=== PATIENT | male | born 1960 | race Caucasian/White ===

== ENCOUNTER 2017-05-28 11:24 | Inpatient (IN) | payer OTHER ==
[2017-05-28] MEDS ORDERED: AMIODARONE HCL 150 MG/3 ML VIAL IV ONE (11:31)
--- NOTE | 2017-05-28 11:35 | EDPHY ---
H & P HPI/ROS: CHIEF COMPLAINT: Unresponsiveness. HISTORY OF PRESENT ILLNESS: The patient is a 57 y/o male arriving emergently via EMS unresponsive after he was found down in the bathroom this morning. Time down is unknown as he was found by a friend. He has a history of poorly managed diabetes and EMS found him unresponsive in presumed diabetic coma with a BGL read by multiple glucometers as "error." They administered 50gm D50 x 2 and 2mg IV Narcan en route and he began to has some withdrawal to painful stimuli upon arrival in the ED. EMS reports he was tachycardic at 120, hypotensive 60/40, and his EKG showed ST depression and elevation. REVIEW OF SYSTEMS: Unable to obtain review of systems due to patient's critical condition. Source: Family, EMS - Medical/Surgical History PMH: PMH includes: 1. Hypertension 2. Insulin-dependent diabetes - Social History Additional Social History: Lives in [place]. No further information available. - Physical Exam Exam: General Appearance: Minimally reactive with some withdrawal to painful stimuli. No visible trauma. Heart rate in the 200s. Respiratory rate mid 20s. Eyes: Pupils equal and round, no conjunctival injection, no discharge. Pupils are not pinpoint. Extraocular movements are conjugate. ENT, Mouth: Mucous membranes are very dry, no oropharyngeal erythema or edema. Neck: No visible trauma. Trachea midline. Respiratory: Lungs are clear to auscultation; no wheezes, rales, or rhonchi. Cardiovascular: Rapid rate and rhythm; peripheral pulses present. Gastrointestinal: Abdomen is soft, no apparent tenderness, no masses or organomegaly. No visible trauma. Skin: Warm and dry, no rashes, normal color. Back: No visible trauma. Extremities: No lower extremity edema. No visible trauma. Neurological: Minimally responsive to painful stimuli with some withdrawal. Spontaneous movement of all four extremities. Psychiatric: not able to assess. Constitutional: Initial Vital Signs Heart Rate 228 H 05/28/17 11:25 Respiratory Rate 23 H 05/28/17 11:25 O2 Sat (%) 100 05/28/17 11:25 O2 Delivery Mode Ventilator O2 (L/minute) 15 Allergies/Adverse Reactions: No Known Allergies Allergy (Unverified 05/28/17 22:35) Home Medications: Medication Instructions Recorded Ergocalciferol [Vitamin D2 (*)] 50,000 unit PO .TWICE WEEKLY 05/28/17 HYDROCHLOROTHIAZIDE 25 mg PO DAILY 05/28/17 [HYDROCHLOROTHIAZIDE] Insulin Lispro [HUMALOG] 05/28/17 Levothyroxine Sodium 88 mcg PO DAILY 05/28/17 Niacin [Niacin ER] 05/28/17 Pantoprazole Sodium [Protonix 40mg 40 mg PO DAILY 05/28/17 (*)] SIMVASTATIN [Zocor] 10 mg PO DAILY 05/28/17 Valsartan [Valsartan] 80 mg PO DAILY 05/28/17 Verapamil HCl [Verapamil ER] 05/28/17 Medical Decision Making - Diagnostics EKG Interpretation: 12 lead EKG is interpreted in Trace master View by emergency department physician. Sinus tachycardia Imaging Results: Single-view chest x-ray shows ET tube in good position. No infiltrates. I reviewed the film and the radiology report. CT scan of the brain. I have reviewed the radiology report and the images. There is a suggestion of premature atrophy. There is also suggestion of left supraorbital frontal edema. Imaging: Discussed imaging studies w/ will call order clerk Radiologist, I viewed and interpreted images myself ED Course/Re-evaluation: 1124: Met EMS upon arrival and took report. This is a diabetic 56 y/o male presenting for unresponsiveness and unknown down time. EMS administered D50 and Narcan. Patient has some spontaneous movement of his extremities. Second IV established. Labs including i-STAT, ABG, and EKGs ordered. Additional amp of D50 ordered. 1127: HR is 225 with a wide complex tachycardia, BP 128/56. Pads applied. Femoral pulse present. Patient is breathing spontaneously. Cardiology paged. 1131: 100 J synchronized cardioversion administered for wide complex tachycardia. No change in rhythm. 1131: 200 J synchronized cardioversion administered for wide complex tachycardia. No change in rhythm. 1132: 300J synchronized cardioversion administered for wide complex tachycardia. No change in rhythm. 150mg IV amiodarone ordered. HR is 252, tachypneic 40. 1132: ISTAT indicates BGL of over 700, K 6.1, Hct normal. BP now 80/47 1L IV NS started on pressure bag, HR varies in 220 to 250 range. Given this information , the presentation appears to be that of a metabolic derangement rather than a primary cardiac problem. However, it is difficult to determine the underlying cause of his unresponsiveness at this point. 10 units insulin administered for hyperkalemia and hyperglycemia. The 12 lead EKG was interpreted by myself. Rapid wide complex rhythm,. See hard copy and/or "tracemaster" electronic copy for interpretation. 1137: Procedure: Rapid sequence intubation. Indication for the procedure was respiratory distress, unresponsiveness, tachycardia 250. The patient was preoxygenated with 100% oxygen by face mask. The patient was given the following IV medications: 50mg IV rocuronium and 30mg IV etomidate. The patient was orally endotracheally intubated under direct visualization with a 7.0 ETT. Tracheal intubation was confirmed with misting on the tube; breath sounds were auscultated equally bilaterally; appropriate color change with [place] CO2 detector. Chest X-ray shows ETT in good position. The procedure was performed by myself, Dr. Yu 1140: HR now 110, BP 80/36. 1144: Albuterol neb ordered. 1145: Dr. Doherty, seat joiner at bedside. 1148: Echocardiogram ordered by Dr. Doherty. 1152: Repeat BGL is >625. Propofol drip ordered for sedation given the patient is being mechanically ventilated. Has received a total of 4 amps of D50, 150mg IV Amiodarone, 10 units IV insulin , 50mg IV rocuronium, 30mg IV etomidate, albuterol neb, propofol drip, and 3L IV NS at this time. 1200: Spoke with hospitalist service. Dr. Millard accepts admission. 1205: Preliminary echo looks normal per Dr. Doherty. Please see his report. 1215: ABG is 6.98, CO2 <5, K is 6.3, creatinine 3.6. As more information becomes available this appears to be a metabolic acidosis, likely diabetic ketoacidosis, with severe hyperglycemia, elevated creatinine, and elevated potassium. He is being aggressively fluid resuscitated via 2 peripheral IVs and an insulin drip will be started. 1222: Spoke with hospitalist service. Dr. Millard accepts admission. 1gm IV calcium gluconate administered. Insulin drip will be started. Discussed sodium bicarbonate drip with Dr. Millard. 1226: Spoke with patient's friend and mother now at bedside. His friend found him in the bathroom and thinks he may have fallen out of the shower because his hair was wet and he was undressed. They confirm he does use insulin to manage his BGL and has an insulin pump, which we do not see on exam here. His mother states he was diagnosed 20 years ago and he's had several episodes of low BGL over the past few weeks and his friend thinks he's been passing out recently. His friend says he's had BGLs around 24. They say the patient does not manage his diabetes well. They both say he has never been hospitalized for diabetes. I answered all their questions to the best my ability. They understand that he is critically ill. Head CT ordered, given history of possible trauma. Will continue to monitor BGLs regularly. 1308: BGL is 1356. Critical care time spent by me, Dr. Yu, exclusively with this patient was 60 minutes, exclusive of PA time and exclusive of procedures. The organ system at risk was cardiovascular, respiratory, metabolic. I gave IVF, amiodarone, insulin, calcium, albuterol, cardioverted, emergently intubated, and consulted cardiology to prevent worsening of the patients condition. Differential Diagnosis: I considered a differential diagnosis that includes but is not limited to hypoglycemia/hyperglycemia, infectious process, electrolyte abnormality, head injury and intoxicants. - Data Points Laboratory Results: Laboratory Results 05/28/17 11:31 05/28/17 11:31 Medications Given: Discontinued Medications Amiodarone HCl (Amiodarone Hcl) 150 mg IV EDNOW ONE Stop: 05/28/17 11:32 Last Admin: 05/28/17 12:12 Dose: 150 mg Calcium Gluconate (Calcium Gluconate) 1 gm IVP EDNOW ONE Stop: 05/28/17 12:18 Last Admin: 05/28/17 12:38 Dose: 1 gm Etomidate (Etomidate) 30 mg IVP EDNOW ONE Stop: 05/28/17 11:37 Last Admin: 05/28/17 11:36 Dose: 30 mg Sodium Chloride (Ns) 3,000 mls @ 0 mls/hr IV EDNOW ONE; Wide Open PRN Reason: Protocol Stop: 05/28/17 12:17 Last Admin: 05/28/17 11:25 Dose: 3,000 mls Insulin Human Regular 100 unit (/ Sodium Chloride) 101 mls @ 0 mls/hr IV CONT TISH; Per Protocol PRN Reason: Protocol Stop: 11/24/17 13:29 Last Admin: 05/29/17 01:38 Dose: 101 mls Sodium Bicarbonate 50 meq/ (Sodium Chloride) 1,050 mls @ 150 mls/hr IV CONT TISH Stop: 11/24/17 13:14 Last Admin: 05/28/17 15:07 Dose: 1,050 mls Sodium Bicarbonate 150 meq/ (Dextrose) 1,150 mls @ 125 mls/hr IV CONT TISH Stop: 11/24/17 16:44 Last Admin: 05/28/17 21:43 Dose: 1,150 mls Ertapenem 1 gm/ Sodium (Chloride) 100 mls @ 200 mls/hr IV ONCE ONE PRN Reason: Protocol Stop: 05/28/17 17:08 Last Admin: 05/28/17 17:50 Dose: 100 mls Calcium Gluconate 2 gm/ (Dextrose) 70 mls @ 140 mls/hr IV ONCE ONE Stop: 05/28/17 23:36 Last Admin: 05/28/17 23:40 Dose: 70 mls Sodium Chloride (Ns) 1,000 mls @ 0 mls/hr IV ONCE ONE PRN Reason: Wide Open Stop: 05/28/17 23:08 Last Admin: 05/28/17 23:23 Dose: 1,000 mls Potassium Chloride (Potassium Cl 10 Meq (Premix)) 100 mls @ 100 mls/hr IV Q1H TISH Stop: 05/29/17 03:14 Last Admin: 05/29/17 03:23 Dose: 100 mls Sodium Chloride (Ns) 3,000 mls @ 500 mls/hr 30 ml/kg infuse over 6 hr (3000 ml ) IV ONCE ONE Stop: 05/29/17 05:16 Last Admin: 05/29/17 00:11 Dose: 3,000 mls Dextrose/Sodium Chloride (D5w Ns) 1,000 mls @ 100 mls/hr IV CONT TISH Stop: 11/25/17 05:59 Last Admin: 05/29/17 06:05 Dose: 1,000 mls Potassium Chloride (Potassium Cl 10 Meq (Premix)) 100 mls @ 100 mls/hr IV ONCE ONE Stop: 05/29/17 06:59 Last Admin: 05/29/17 06:04 Dose: 100 mls Sodium Chloride (1/2 Ns) 1,000 mls @ 100 mls/hr IV CONT TISH Stop: 11/25/17 08:29 Last Admin: 05/29/17 07:30 Dose: 1,000 mls Potassium Chloride (Potassium Cl 20 Meq (Premix)) 50 mls @ 50 mls/hr IV Q1H TISH Stop: 05/29/17 11:37 Last Admin: 05/29/17 10:27 Dose: 50 mls Insulin Glargine (Lantus Syringe) 10 units SC ONCE ONE Stop: 05/29/17 06:23 Last Admin: 05/29/17 07:47 Dose: 10 units Insulin Human Regular (Humulin R) 10 unit IVP EDNOW ONE Stop: 05/28/17 11:37 Last Admin: 05/28/17 11:36 Dose: 10 units Insulin Human Regular (Humulin R) 5 unit IV ONCE ONE Stop: 05/28/17 18:01 Last Admin: 05/28/17 18:00 Dose: 5 units Insulin Human Regular (Humulin R) 10 unit IVP ONCE ONE Stop: 05/28/17 23:46 Last Admin: 05/28/17 23:47 Dose: 10 units Insulin Human Regular (Humulin R) 10 unit IVP ONCE ONE Stop: 05/29/17 01:16 Last Admin: 05/29/17 01:10 Dose: 10 units Insulin Human Regular (Humulin R) 10 unit IVP ONCE ONE Stop: 05/29/17 03:31 Last Admin: 05/29/17 03:23 Dose: 10 units Pneumococcal Polyvalent Vaccine (Pneumovax 23) 0.5 ml IM .ONCE ONE Stop: 05/29/17 11:08 Last Admin: 05/29/17 11:29 Dose: 0.5 ml Rocuronium [place] (Zemuron) 50 mg IVP EDNOW ONE Stop: 05/28/17 11:37 Last Admin: 05/28/17 11:36 Dose: 50 mg Sodium Bicarbonate (Sodium Bicarbonate) 50 meq IV ONCE ONE Stop: 05/28/17 14:31 Last Admin: 05/28/17 14:30 Dose: 50 meq Sodium Bicarbonate (Sodium Bicarbonate) 50 meq IV ONCE ONE Stop: 05/28/17 16:31 Last Admin: 05/28/17 16:30 Dose: 50 meq Sodium Polystyrene Sulfonate (Kayexalate) 30 gm WA ONCE ONE Stop: 05/28/17 13:17 Last Admin: 05/28/17 15:07 Dose: Not Given Departure - Departure Disposition: [facility] Inpatient Acute Clinical Impression: Hyperglycemia, Unresponsive, Hyperkalemia, tachycardia rate 200-250, Acidosis Diabetic ketoacidosis Qualifiers: Diabetes mellitus type: type 1 Diabetes mellitus complication detail: with coma Qualified Code(s): E10.11 - Type 1 diabetes mellitus with ketoacidosis with coma Condition: Critical Report Scribed for: Jes Yu Report Scribed by: Leesa Alegre Date of Report: 05/28/17 Time of Report: 11:35 Physician Review and Approval Statement: 05/29/17 12:04 Portions of this note were transcribed by the medical laboratory technical officer. I, Dr. Jes Yu, personally performed the history, physical exam, and medical decision- making; and confirmed the accuracy of the information in the transcribed note.
[2017-05-28] MEDS ORDERED: ETOMIDATE 20 MG/10 ML VIAL IVP ONE (11:36)
[2017-05-28] MEDS ORDERED: INSULIN REGULAR HUMAN 100 UNIT/ML IVP ONE ×2 (11:36→23:45)
[2017-05-28] MEDS ORDERED: INSULIN REGULAR HUMAN 100 UNIT/ML ONE (11:36)
[2017-05-28] MEDS ORDERED: ROCURONIUM 100 MG/10 ML VIAL IVP ONE (11:36)
[2017-05-28] MEDS ORDERED: ALBUTEROL 3 ML DEYVIAL ONE (11:36)
[2017-05-28 11:38] LABS: % IMMATURE GRANULYOCYTES 1.7 % (0.0-1.1); ABSOLUTE IMMATURE GRANULOCYTES 0.26 10^3/uL (0.00-0.10); ABSOLUTE NRBC COUNT 0.02 10^3/uL (0-0.01); ADD DIFF? NO; ADD MORPH? NO; ADD SCAN? NO; ATYPICAL LYMPHOCYTE FLAG 0 (0-99); FRAGMENT RBC FLAG 0 (0-99); HEMOGLOBIN 12.7 g/dL (13.7-17.5); LEFT SHIFT FLG 30 (0-99); LIPEMIA HEMOLYSIS FLAG 70 (0-99); MEAN CELL HEMOGLOBIN 33.5 pg (27.9-34.1); MEAN CELL HEMOGLOBIN CONCENTR. 29.5 g/dL (32.4-36.7); MEAN CELL VOLUME 113.5 fL (81.5-99.8); MEAN PLATELET VOLUME 11.4 fL (8.7-11.7); NRBC-AUTO% 0.1 % (0.0-0.2); PLATELET CLUMPS FLAG 10 (0-99); PLATELET COUNT 224 10^3/uL (150-400); RED BLOOD CELL COUNT 3.79 10^6/uL (4.40-6.38); RED CELL DISTRIBUTION WIDTH 14.3 % (11.5-15.2)
[2017-05-28 11:47] LABS: INR 1.53 (0.83-1.16); PROTIME(PATIENT) 18.4 SEC (12.0-15.0)
[2017-05-28 11:48] LABS: APTT 24.1 SEC (23.0-38.0)
[2017-05-28 11:49] LABS: ALANINE AMINOTRANSFERASE 42 IU/L (21-72); ALBUMIN 3.6 g/dL (3.5-5.0); ALKALINE PHOSPHATASE 82 IU/L (38-126); ASPARTATE AMINOTRANSFERASE 61 IU/L (17-59); BILIRUBIN,TOTAL 0.9 mg/dL (0.1-1.4); BILIRUBIN-CONJUGATED 0.8 mg/dL (0.0-0.5); BILIRUBIN-UNCONJUGATED 0.1 mg/dL (0.0-1.1); CHLORIDE 92 mEq/L (97-110); CREATININE 3.6 mg/dL (0.7-1.3); GLOMERULAR FILTRATION RATE 18; SODIUM 130 mEq/L (134-144); TOTAL PROTEIN 5.3 g/dL (6.3-8.2)
[2017-05-28 11:51] LABS: POTASSIUM 6.3 mEq/L (3.5-5.2)
[2017-05-28 11:52] LABS: CARBON DIOXIDE < 5 mEq/l (22-31)
[2017-05-28] MEDS ORDERED: PROPOFOL/EMULSION 1,000 MG/100 ML BOTTLE IV ONE (11:55)
[2017-05-28 12:00] LABS: TROPONIN I 0.301 ng/mL (0-0.034)
[2017-05-28 12:08] LABS: BASE EXCESS -25.1 mEq/L (-2.5-2.5); BICARBONATE 6 mEq/L (22-26); MEASURED OXYGEN SATURATION 99 % (92-95); PCO2 27 mmHg (34-38); PO2 376 mmHg (65-75)
[2017-05-28 12:14] LABS: ASSIST CONTROL YES
[2017-05-28 12:15] LABS: O2 CONCENTRATIION 100 % (0-100); P/F RATIO 376 RATIO; TOTAL RATE 14
[2017-05-28] MEDS ORDERED: NS 3,000 ML IV ONE ×2 (12:16→23:17)
[2017-05-28] MEDS ORDERED: CALCIUM GLUC 10% 1 GM/10 ML VIAL IVP ONE (12:17)
[2017-05-28 12:21] LABS: TCO2 7 mEq/L (23-27)
--- NOTE | 2017-05-28 12:35 | ECHO ---
[id number] + + [address] : : [facility] [address] : : [phone] + Adult Echocardiographic Report + -----+ :Name: ABENA ALEMAN Abimaeludy Date: 05/28/2017 12:07 PM : : Hospital Admission Number: [id number] Locjerio n: ER: :: 1960 Gender: Male : :Age: 56 yrs Race: WH : :Reason For Study: Eval LV Fx : :History: Found down, Post Defibrillator shock x 3 : + -----+ Doppler Measurements \T\ Calculations TR max mundo: 278.0 cm/sec TR max P.9 mmHg RAP systole: 10.0 mmHg RVSP(TR): 40.9 mmHg Left Ventricle The left ventricular ejection fraction is normal. The left ventricle is hyperdynamic. The left ventricular wall motion is normal. Right Ventricle The right ventricle is mildly dilated. Mitral Valve The mitral valve is normal in structure and function. There is no evidence of mitral valve prolapse. There is no mitral regurgitation noted. Tricuspid Valve There is mild tricuspid regurgitation. Right ventricular systolic pressure is 34mmHg. RAP 3 mmHg. Aortic Valve The aortic valve opens well. There is no aortic insufficiency. Great Vessels The aortic root is normal size. Pericardium/Pleural There is no pericardial effusion. Conclusion This is a limited echo to evaluate LV function and EF. The left ventricular ejection fraction is normal. The left ventricle is hyperdynamic. The mitral valve is normal in structure and function. There is mild tricuspid regurgitation. The aortic valve opens well. The aortic root is normal size. There is no pericardial effusion. The left ventricular wall motion is normal. Right ventricular systolic pressure is 34mmHg. Final Reading Physician: Inder Doherty electronically signed on 05/28/2017 12:34 PM Ordering Physician: Inder Doherty Performed By: Byron Marquez, CS
[2017-05-28] MEDS ORDERED: LORazepam 2 MG/ML INJ IVP PRN ×2 (13:07→17:54)
[2017-05-28] MEDS ORDERED: ACETAMINOPHEN 650 MG SUPP PR PRN (13:07)
[2017-05-28 13:08] LABS: GLUCOSE 1356 mg/dL (70-100)
[2017-05-28] MEDS ORDERED: NS 1,000 ML IV SCH (13:15)
[2017-05-28] MEDS ORDERED: SODIUM BICARBONATE 50 MEQ in 1/2 NS 1,000 ML IV SCH (13:15)
[2017-05-28] MEDS ORDERED: SODIUM POLY SULF 15 GM/60 ML BOTTLE PR ONE (13:16)
--- NOTE | 2017-05-28 13:40 | GCON ---
[f rep st] CONSULTATION CARDIOLOGY CONSULTATION DATE OF CONSULTATION: 05/28/2017 REASON FOR CONSULTATION: Wide-complex tachycardia in 56 year-old gentleman found unresponsive at home for unknown period of time. HISTORY OF PRESENT ILLNESS: Of note, this history of present illness is obtained from Dr. Yu exclusively. The patient is a 56 year-old gentleman who was found down and unresponsive at home in his bathroom. He was down for an unknown period of time. He does have a known history of diabetes and is on insulin. Per Dr. Yu's report, who spoke with his mother who states he does have a history of diabetes which is poorly controlled. EMS was contacted, and upon arrival he was found to be unresponsive. Attempts to get fingerstick blood glucose were unsuccessful secondary to glucometer reading "error." He subsequently was administered 50 g of D50. He was also given 2 mg of IV Narcan and was minimally responsive to painful stimuli. He was tachycardic, in a sinus tachycardia on EMS telemetry strips with a wide-complex tachycardia. He was also hypotensive with a blood pressure of 60/40. Upon arrival in the ER at 11:27, the heart rate is reported to be 225 with a blood pressure of 128/56. He received 3 synchronized shocks; initially at 100 followed by 200 and 300 joules and received 150 mg bolus of amiodarone. Upon my arrival, he was in sinus tachycardia on monitor and storage bin tender in the 130s with a wide-complex tachycardia, consistent with hyperkalemia. Initial potassium was 6.3. Blood glucose was markedly elevated in the 700s. Creatinine was elevated at 3.6. Upon my arrival, he was hemodynamically stable with systolic blood pressure of 96. Stat limited echo at bedside per my review demonstrated hyperdynamic left ventricular function with LVEF of 70%. No wall motion abnormalities. No significant valvular disease. There is no evidence of pericardial effusion. Right ventricular size was borderline mildly dilated with normal right ventricular function. Right ventricular systolic pressure approximately 34 mmHg. IVC approximately 1.5 cm, consistent with right atrial pressure of 3 mmHg. Cardiac exam demonstrated normal rhythm with S1 and S2 without murmurs, rubs, or gallops. There is no evidence of cyanosis, clubbing or edema. PAST MEDICAL HISTORY: 1. History of diabetes. 2. Hypertension. MEDICATIONS ON ADMISSION: Unknown exact doses but apparently uses insulin. ALLERGIES: Unknown. SOCIAL HISTORY: Unknown. FAMILY HISTORY: Unknown. PHYSICAL EXAM: GENERAL: Patient is unresponsive to stimuli. VITAL SIGNS: Blood pressure is 108/52, heart rate of 111, sinus tachycardia, oxygen saturation 99% on ventilator. NECK: There is no evidence of JVP or carotid bruits. LUNGS: Clear to auscultation anteriorly. CARDIAC: S1, S2. Regular. No murmurs, rubs, or gallops. PMI is not displaced. ABDOMEN: Soft with normal bowel sounds. No pulsatile mass. EXTREMITIES: No evidence of cyanosis , clubbing or edema. DATA: Lab work demonstrates white blood cell count of 15.3, hemoglobin 12.7, hematocrit of 43, platelets of 224. INR 1.53. Blood gas demonstrates pCO2 of 27, PO2 of 376, pH of 6.98. Basic metabolic panel demonstrates sodium of 127, potassium of 6.3, chloride of 92, bicarb less than 5, BUN 52, creatinine 3.8. Fingerstick glucose of approximately 700. Calcium 8, magnesium 2.7, AST 61, ALT 42, alkaline phosphatase 82. Troponin 0.301. Total protein 5.3, albumin 3.6. Chest x-ray: No acute cardiopulmonary process. EKG demonstrates wide-complex tachycardia of sinus rhythm with wide QRS in the setting of hyperkalemia. IMPRESSION: 1. Patient found unresponsive in the setting of marked hyperglycemia with sugars in the 700s, hyperkalemia with potassium of 6.3, and acute renal insufficiency with creatinine of 3.8. 2. Wide-complex tachycardia consistent with sinus tachycardia in the setting of hyperkalemia. The patient is a 56-year-old gentleman who was found unresponsive at home with marked hyperglycemia, hyperkalemia and acute renal failure and sinus tachycardia with wide-complex rhythm induced by hyperkalemia. Echocardiogram demonstrates normal left ventricular function with no evidence of wall motion abnormality. Right ventricular function is normal. Pulmonary pressure approximately 34 mmHg. Right atrial pressure 3 mmHg. No evidence of pericardial effusion. I do not think this is a primary cardiac etiology to his current state. PLAN: 1. Patient will be admitted to ICU. 2. Continue to work toward rectifying hyperkalemia, renal insufficiency and hyperglycemia. 3. Will continue to follow along with his care. 4. No indication for emergent left heart catheterization at this time. 45 minutes spent coordinating critical care. /[id number]/MODL MTDD
[2017-05-28] MEDS ORDERED: ETOMIDATE 40 MG/20 ML INJ ONE (13:44)
[2017-05-28] MEDS ORDERED: ROCURONIUM 100 MG/10 ML VIAL ONE (13:45)
[2017-05-28 14:03] LABS: ANION GAP 26 mEq/L (8-16); CARBON DIOXIDE 8 mEq/l (22-31); CHLORIDE 103 mEq/L (97-110); CREATININE 3.6 mg/dL (0.7-1.3); GLOMERULAR FILTRATION RATE 18; POTASSIUM 4.9 mEq/L (3.5-5.2); SODIUM 137 mEq/L (134-144)
--- NOTE | 2017-05-28 14:08 | CPEKG ---
Heart Rate: 110 RR Interval: 545 P-R Interval: 132 QRSD Interval: 176 QT Interval: 448 QTC Interval: 607 P [place]: 0 QRS [place]: -73 T Wave [place]: 49 EKG Severity - ABNORMAL ECG - EKG Impression: SINUS TACHYCARDIA EKG Impression: RIGHT BUNDLE BRANCH BLOCK Electronically Signed By: Rishi Jeter 31-May-2017 11:56:23
--- NOTE | 2017-05-28 14:09 | CPEKG ---
Heart Rate: 114 RR Interval: 526 P-R Interval: 123 QRSD Interval: 176 QT Interval: 396 QTC Interval: 546 P [place]: 244 QRS [place]: -82 T Wave [place]: 67 EKG Severity - ABNORMAL ECG - EKG Impression: ECTOPIC ATRIAL TACHYCARDIA EKG Impression: RIGHT BUNDLE BRANCH BLOCK Electronically Signed By: Rishi Jeter 31-May-2017 11:56:10
[2017-05-28 14:19] LABS: GLUCOSE 1231 mg/dL (70-100)
[2017-05-28 14:21] LABS: COLOR YELLOW; LEUKOCYTE ESTERASE,URINE NEGATIVE (NEGATIVE); NITRITE,URINE NEGATIVE (NEGATIVE)
[2017-05-28 14:30] LABS: MUCUS TRACE /lpf (NONE-1+)
[2017-05-28] MEDS: fentaNYL/NACL 100 ML IV SCH (14:30)
[2017-05-28] MEDS ORDERED: SODIUM BICARBONATE 50 MEQ/50 ML SYR IV ONE (14:30)
[2017-05-28] MEDS ORDERED: fentanYL/NACL/100 ML BAG IV ONE (14:33)
[2017-05-28] MEDS ORDERED: NA BICARBONATE 50 MEQ/50 ML VIAL ONE (14:33)
[2017-05-28] MEDS: INSULIN REGULAR HUMAN 100 UNIT in NS 100 ML IV SCH ×2 (14:59→21:42)
[2017-05-28] MEDS: PANTOPRAZOLE SODIUM 40 MG in NS 100 ML IV SCH (15:00)
[2017-05-28] MEDS ORDERED: ALTEPLASE 2 MG VIAL IVP PRN (15:06)
[2017-05-28] MEDS: PROPOFOL/EMULSION 100 ML IV SCH ×3 (15:06→23:39)
[2017-05-28 15:35] LABS: BASE EXCESS -16.2 mEq/L (-2.5-2.5); BICARBONATE 11 mEq/L (22-26); MEASURED OXYGEN SATURATION 99 % (92-95); PCO2 32 mmHg (34-38); PO2 209 mmHg (65-75); TCO2 12 mEq/L (23-27)
[2017-05-28 15:37] LABS: END TIDAL CO2 28
[2017-05-28 15:38] LABS: TOTAL RATE 20
[2017-05-28] MEDS ORDERED: SODIUM BICARBONATE 50 MEQ/50 ML SYR ONE (16:19)
[2017-05-28] MEDS ORDERED: D50W 25 GM/50 ML SYR IVP PRN (16:28)
[2017-05-28] MEDS ORDERED: NA BICARBONATE 50 MEQ/50 ML VIAL IV ONE (16:30)
[2017-05-28 16:38] LABS: B-HYDROXYBUTYRATE 5.98 mmol/L (0.02-0.27)
[2017-05-28] MEDS ORDERED: ERTAPENEM 1 GM in NS 100 ML IV ONE (16:39)
[2017-05-28] MEDS ORDERED: SODIUM BICARBONATE 150 MEQ in D5W 1,000 ML IV SCH (16:45)
[2017-05-28 16:57] LABS: GLUCOSE 1127 mg/dL (70-100)
--- NOTE | 2017-05-28 17:10 | GHP ---
[f rep st] HISTORY AND PHYSICAL DATE OF ADMISSION: 05/28/2017 CHIEF COMPLAINT: Found down. HISTORY: This is a 56-year-old man who was found down at home this morning by a realtor. The patie nt has a known history of diabetes and per family present at bedside he has been having issues with control of his diabetes both with highs and lows. When EMS found him they checked his fingerstick g lucose and it was read as error. Given concerns for hypoglycemia, he was given 3 rounds of D50; 2 e n route in the ambulance and 1 on arrival in the ER. He was noted to have a wide-complex tachycardi a that was prolonged and he did receive 3 shocks while in the emergency department without any fermin e in his rhythm. He was fluid resuscitated and treated urgently for hyperkalemia at which time his blood pressure improved and his heart rate came down somewhat. He was intubated emergently in the e mergency department. An ABG was obtained, notable for a pH of 6.98 and a bicarb of 6. Cardiology w as emergently consulted and performed echocardiogram which was relatively unremarkable. They did no t feel that his tachycardia was likely VT. He was started on DKA protocol and moved to the ICU. PAST MEDICAL HISTORY: 1. Includes insulin-dependent diabetes, unknown if type 1 or type 2. 2. Hypothyroid. 3. Hypertension. 4. Gastroesophageal reflux disease. PAST SURGICAL HISTORY: This is not obtainable per chart review and unobtainable by the patient. FAMILY HISTORY: This too was unobtainable per chart review, and given the patient is unresponsive t his was not obtained. SOCIAL HISTORY: Presumably patient lives alone but otherwise social history is unobtainable. REVIEW OF SYSTEMS: Unobtainable secondary to patient's mental status. HOME MEDICATIONS: 1. Vitamin D2. 2. Simvastatin. 3. Levothyroxine. 4. Losartan. 5. Hydrochlorothiazide. 6. Pantoprazole. 7. Verapamil. 8. Niacin. 9. Insulin lispro. ALLERGIES: This was unassessable and not available per chart review. PHYSICAL EXAM: VITAL SIGNS: BP 97/78, heart rate 108, respiratory rate 20, O2 saturation 100% on 6 0% FiO2 on the ventilator, temperature is 36.7. GENERAL APPEARANCE: Well-developed/well-nourished man. He is intubated and sedated and nonresponsive. EYES: Anicteric. Pupils equal, round, and re active. HEENT: ET tube in place, mucous membranes appear dry. CARDIOVASCULAR: Tachy, regular, no MRG. PULMONARY: CTA bilaterally to anterior exam. ABDOMEN: Obese, soft, no palpable masses, bow el sounds are decreased but present. EXTREMITIES: Trace bilateral lower extremity edema. SKIN: W arm and dry, well perfused. NEURO/PSYCH: Patient is intubated and sedated and therefore is unable to be assessed. CLINICAL DATA: Labs reviewed. Significant for white blood cell count of 15.3, hematocrit of 43, pl atelets of 224. INR is 1.5. Gas on arrival notable for pH of 6.98, pCO2 of 7. This is improved to 7.1 and 12. Chemistry initially showing sodium of 130, potassium 6.3. Bicarb less than 5. BUN of 52 and creatinine 3.6 with a glucose of 1356. LFTs are relatively unremarkable. Troponin is 0.3. Urinalysis shows 3+ glucose and 3+ blood, but otherwise unremarkable. U tox is negative. Head CT concerning for possible alcohol abuse with premature cerebral atrophy but otherwise unremark able. Chest x-ray: Personally reviewed and interpreted, shows no focal infiltrates. ET tube in good posi tion. EKG personally reviewed and interpreted. Shows sinus tachycardia with right bundle branch block. N o old to compare. ASSESSMENT/PLAN: A -umok-nrb, diabetic man found unresponsive with evidence of diabetic k etoacidosis and acute kidney injury, as well as sinus tachycardia. 1. Diabetic ketoacidosis. Unclear if this was the main precipitating event or some other factors c ontributing. His sugars are in the 1000 at this point, with a gap in the 20s. He is started on DKA protocol with aggressive fluid resuscitation and electrolyte repletion. He will be monitored in th e ICU on insulin drip. 2. Acute encephalopathy. Again, patient was found unresponsive and remained unresponsive though wi th a pulse at the time of arrival in the ER. This in the setting of significant metabolic derangeme nts as above. Also, with significant tachycardia possibly leading to poor cerebral perfusion. Head CT was essentially unremarkable. Unclear if he does have a history of alcohol use as brought up by the radiologist. He does have a very high MCV as well. 3. Acute kidney injury in the setting of diabetic ketoacidosis as above. He is making urine. Cont inue IV fluids and re-evaluate over the next 24 hours. No indication at this time for hemodialysis or renal consultation. 4. Elevated troponin. Again, echocardiogram does not show any signs of clear active ischemia. He is not suggestive of PE either. This could all be related to demand in the setting of significant h ypotension and DKA but will continue to trend troponins. Cardiology is following. 5. Acute hypoxic respiratory failure. Patient is now intubated. Chest x-ray is relatively unremar kable. Pulmonary embolism is a possibility though D-dimer is relatively low given age adjusted cut off. No evidence of pneumonia. This could be largely driven by the patient's encephalopathy and di fficulty to maintain his airway. Pulmonology will be involved. 6. Leukocytosis in the setting of above and significant stress. There is no clear evidence at this point of an acute infectious process. Low threshold to start empiric antibiotics, so at this point , do not have a source for treatment. 7. Inpatient status. Patient is critically ill requiring ICU care. Patient is new to my care. Old records reviewed, summarized as per HPI and past medical history. C are plan reviewed with ER physician, as well as Cardiology. Further history obtained from the ER st aff and patient's friend present at bedside. Greater than 60 minutes of critical care time spent with this patient in evaluation of labs, coordin ating with specialists and evaluating imaging studies. /[id number]/MODL
[2017-05-28] MEDS: ALBUTEROL 200 PUFFS/18 GM MDI IH SCH ×3 (17:28→23:55)
[2017-05-28] MEDS ORDERED: PROPOFOL/EMULSION 100 ML IV SCH (17:54)
[2017-05-28] MEDS ORDERED: fentaNYL 100 MCG/2 ML INJ IVP PRN (17:54)
[2017-05-28] MEDS ORDERED: MIDAZOLAM 2 MG/2 ML VIAL IVP PRN (17:54)
[2017-05-28] MEDS ORDERED: ALBUTEROL 200 PUFFS/18 GM MDI IH SCH (18:00)
[2017-05-28] MEDS ORDERED: INSULIN REGULAR HUMAN 100 UNIT/ML IV ONE (18:00)
[2017-05-28 18:30] LABS: GLUCOSE 936 mg/dL (70-100)
[2017-05-28 21:26] LABS: ANION GAP 9 mEq/L (8-16); CALCIUM 6.2 mg/dL (8.5-10.4); CARBON DIOXIDE 26 mEq/l (22-31); CHLORIDE 101 mEq/L (97-110); CREATININE 2.4 mg/dL (0.7-1.3); GLOMERULAR FILTRATION RATE 28; SODIUM 136 mEq/L (134-144)
[2017-05-28] MEDS: CHLORHEXIDINE GLUCONATE 15 ML UDL PO SCH (21:42)
[2017-05-28 21:58] LABS: GLUCOSE 562 mg/dL (70-100); POTASSIUM 2.2 mEq/L (3.5-5.2)
[2017-05-28 23:01] LABS: MIXED VENOUS O2 SATURATION 78 % (65-75)
[2017-05-28 23:03] LABS: % IMMATURE GRANULYOCYTES 0.5 % (0.0-1.1); ABSOLUTE IMMATURE GRANULOCYTES 0.06 10^3/uL (0.00-0.10); ADD DIFF? NO; ADD MORPH? NO; ADD SCAN? NO; ATYPICAL LYMPHOCYTE FLAG 0 (0-99); FRAGMENT RBC FLAG 0 (0-99); HEMOGLOBIN 12.8 g/dL (13.7-17.5); LEFT SHIFT FLG 10 (0-99); LIPEMIA HEMOLYSIS FLAG 90 (0-99); MEAN CELL HEMOGLOBIN 33.2 pg (27.9-34.1); MEAN CELL HEMOGLOBIN CONCENTR. 35.6 g/dL (32.4-36.7); MEAN CELL VOLUME 93.5 fL (81.5-99.8); MEAN PLATELET VOLUME 10.8 fL (8.7-11.7); PLATELET CLUMPS FLAG 40 (0-99); PLATELET COUNT 179 10^3/uL (150-400); RED BLOOD CELL COUNT 3.85 10^6/uL (4.40-6.38); RED CELL DISTRIBUTION WIDTH 12.8 % (11.5-15.2)
[2017-05-28 23:05] LABS: BASE EXCESS -1.6 mEq/L (-2.5-2.5); BICARBONATE 21 mEq/L (22-26); MEASURED OXYGEN SATURATION 99 % (92-95); PCO2 33 mmHg (34-38); PO2 148 mmHg (65-75); TCO2 22 mEq/L (23-27)
[2017-05-28 23:06] LABS: ASSIST CONTROL YES; END TIDAL CO2 27; O2 CONCENTRATIION 40 % (0-100); P/F RATIO 370 RATIO; TOTAL RATE 20
[2017-05-28] MEDS ORDERED: CALCIUM GLUCONATE 2 GM in D5W 50 ML IV ONE (23:07)
[2017-05-28] MEDS ORDERED: NS 1,000 ML IV ONE (23:07)
--- NOTE | 2017-05-28 23:17 | HOSPPROG ---
Hospitalist Progress Note Assessment/Plan: 30 minutes additional critical care, spent at bedside with patient, coordinating his care and addressing the issues as follows: - patient's hypotension is worsening with mean arterial pressures in the 50 range and a CVP between 2 and 6 - arterial lactic acid 2.5, procalcitonin 132, suspect possible septic shock as initial event causing hyperglycemia then acute kidney injury then hyperkalemia then ventricular arrhythmia - echocardiogram from earlier today reviewed, hyperdynamic left ventricle - give 1 L normal saline bolus now, initiate Levophed if map remains less than 65 - initiate septic shock protocol and repeat serial lactic acid levels until clears - continue patient on insulin drip per DKA protocol and bolus and increase drip as necessary - continue patient on sodium bicarbonate at 125 cc an hour given his severe metabolic acidosis - remainder of patient's arterial blood gas appears like he is oxygenating and ventilating well with normalization of his pH on sodium bicarb drip - replete electrolytes which have been affected by DKA management, notably calcium and potassium, monitor q.4 hours labs and check phosphorus on next one - repeat procalcitonin level and if increasing, broaden antibiotics - as yet, patient's potential source of infection is unclear, nurses send blood cultures, patient with some mild tenderness in his abdomen on palpation, will get noncontrast abdominal CT once his situation above has stabilized - breath sounds clear bilaterally albeit shallow, personally interpreted the patient's most recent chest x-ray, does not have any focal infiltrates to suggest pneumonia - continue on ertapenem - patient remains critically ill with high risk of worsening morbidity and mortality Objective: Vital Signs Temp Pulse Resp BP Pulse Ox 36.4 C 96 19 79/49 L 100 05/28/17 21:00 05/28/17 22:00 05/28/17 22:00 05/28/17 22:00 05/28/17 22:00 Laboratory Results 05/28/17 22:50 05/27/17 05/28/17 05/29/17 05:59 05:59 05:59 Intake Total 5298 Output Total 1375 Balance 3923 PT 18.4 SEC (12.0-15.0) H 05/28/17 11:31 INR 1.53 (0.83-1.16) H 05/28/17 11:31 ICD10 Worksheet Patient Problems: Problems Problem Status Onset Hyperglycemia Acute Unresponsive Acute Hyperkalemia Acute Acidosis Acute
[2017-05-28 23:19] LABS: GLUCOSE 587 mg/dL (70-100)
[2017-05-28 23:27] LABS: TROPONIN I 0.684 ng/mL (0-0.034)
[2017-05-28] MEDS ORDERED: NOREPINEPHRINE BITARTRATE 4 MG in D5W 500 ML IV SCH (23:30)
[2017-05-28] MEDS ORDERED: NOREPINEPHRINE/NS 500 ML IV SCH (23:30)
[2017-05-28] MEDS: POTASSIUM Cl (KCl) 100 ML IV SCH (23:40)
[2017-05-29 00:24] LABS: PROCALCITONIN 147.81 ng/mL (0.02-0.10)
--- NOTE | 2017-05-29 01:02 | GCON ---
[f rep st] CONSULTATION PULMONARY CRITICAL CARE CONSULTATION DATE OF CONSULTATION: 05/28/2017 REASON FOR CONSULTATION: Out of hospital arrest, acute respiratory failure, underlying insulin-dependent diabetes with DKA. HISTORY: The patient is a 56-year-old with underlying insulin-dependent diabetes, apparently poorly controlled. He was found in his bathroom today by his realtor, unresponsive. He was breathing and reportedly did have a pulse. The paramedics were called. They were unable to get any reading by glucometer, and he was thus given 2 amps of D50. He was also given Narcan. Apparently, en route, he was minimally responsive to painful stimuli and appeared to be in a sinus tachycardia. He was initially hypotensive, and in the emergency department, his blood pressure normalized, and he subsequently became hypertensive. He was found to be in a wide-complex tachycardia. He was cardioverted 3 times. He was intubated. A stat cardiac echo appeared normal. There was no significant right ventricular dysfunction or dilatation or high right-sided pressures suggesting pulmonary embolic disease. He was admitted to the intensive care unit with sinus rhythm in the low 100s and a systolic blood pressure of approximately 90. He remains unresponsive but does move his head, torso, and upper extremities, somewhat more to stimulation. He does not follow commands. Glucoses remain high. He has been started on the DKA protocol. He remains acidotic. PAST MEDICAL HISTORY: Obtained from the chart. There is a history of insulin- dependent diabetes, hypertension, gastroesophageal reflux disease, hyperlipidemia, and hypothyroidism on replacement. Listed medications at home include simvastatin, levothyroxine, valsartan, hydrochlorothiazide, pantoprazole, verapamil, niacin, insulin, and vitamin D2. SOCIAL HISTORY: The patient is single. His sister and mother are at the hospital with him. Tobacco and alcohol are denied by his mother. 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 FAMILY HISTORY: Noncontributory. REVIEW OF SYSTEMS: Unobtainable. PHYSICAL EXAMINATION: GENERAL: Reveals a critically ill gentleman who is intubated, on the ventilator and unresponsive. He is being sedated with propofol and some fentanyl. He did receive rocuronium and etomidate several hours ago when he was intubated. VITAL SIGNS: Blood pressure is 100/75, heart rate 104 with sinus rhythm on the monitor, respiratory rate is 20. He is on 60 % FiO2 with saturations in the upper 90s. He is afebrile. HEENT: Remarkable for an oral endotracheal tube being in place. An orogastric tube is present, draining some dark bilious material. Pupils appear equal. He has an upward gaze, slightly to the left. CHEST: Clear bilaterally. Breath sounds are diminished at the bases. There are no significant secretions currently. HEART : Regular. The rhythm is sinus. There is a systolic murmur, no obvious gallop. P2 does not appear to be increased. ABDOMEN: Soft. Tenderness cannot be well assessed. There is no organomegaly. Bowel sounds are present but somewhat diminished. EXTREMITIES: The lower extremities are unremarkable for edema or obvious cords. SKIN: Without rash or significant lesions. There are no obvious signs of trauma. A Martinez catheter is in place. He is making urine. He does move his head and torso and upper extremities somewhat. He has less movement of the lower extremities currently. He will not open his eyes or respond to commands. DATABASE: CT scan of the head shows some cerebral atrophy. There may be a small area of frontal lobe edema above the left orbit? There are no other acute findings. Chest x-ray shows some minimal atelectasis, no focal infiltrates, no pulmonary edema or pleural effusions. LABORATORY: Current arterial blood gas shows a pH of 7.18, pCO2 of 32, and pO2 of 209. Saturations are 99%. This is on a respiratory rate of 18 and a tidal volume of 700, 5 of PEEP, and 7 of pressure [place]. [place] [address], hematocrit 43. Platelets are 224,000. PT on admission was 18.4, PTT 24. Sodium is 137, potassium 4.9, CO2 8, anion gap 26, BUN 52, creatinine 3.6, glucose 1231. Calcium is 8.0. Troponin is 0.3. Beta-hydroxybutyrate is pending. Urinalysis was negative on admission, as was tox screen. ASSESSMENT: 1. Status post out of hospital arrest. The exact etiology for this is unclear. He could have collapsed secondary to severe diabetic ketoacidosis, cardiac arrhythmia related to hyperkalemia, primary arrhythmia, or possibly another cause. 2. Altered mental status/unresponsiveness. Secondary to above and toxic metabolic factors associated with his severe diabetic ketoacidosis. 3. Diabetic ketoacidosis. He is on the DKA protocol. Glucose and acidosis are starting to improve with initial therapies, insulin drip, intravenous fluids , etc. 4. Acute respiratory failure. The patient was intubated secondary to his abnormal mental status and unresponsiveness as well as his acidosis. Initial chest x-ray does not show evidence of a primary pulmonary issue, aspiration, or other problems. However, he certainly may have aspirated, and he will be covered for aspiration after cultures have been obtained. 5. Anion gap acidosis, secondary to diabetic ketoacidosis. 6. Acute renal failure. Likely secondary to diabetic ketoacidosis and volume depletion. Fluids are being given. 7. Deep vein thrombosis prophylaxis: Enoxaparin. 8. Gastrointestinal prophylaxis: On pantoprazole. PLAN AND RECOMMENDATIONS: The patient will be supported aggressively in the intensive care unit. Ventilatory support will be maintained. Intravenous fluids will be continued. An insulin drip per the DKA protocol will be continued. Sugars and chemistries, along with his anion gap, will be followed closely. Bicarbonate will be continued. This likely will need to be increased initially. A sputum culture will be obtained. Invanz will be ordered. Chest x -ray and blood gas will be followed. Enoxaparin and pantoprazole will be continued. Further plans and recommendations will be made based on his progress over the next 6-12 hours. 1 hour of critical care time was spent directly with the patient. Radiologic studies were personally reviewed. Discussed with Cardiology, respiratory therapy, nursing, and the ICU multi disciplinary team. /[id number]/MODL MTDD
[2017-05-29] MEDS ORDERED: INSULIN REGULAR HUMAN 100 UNIT/ML IVP ONE ×2 (01:15→03:30)
[2017-05-29] MEDS: INSULIN REGULAR HUMAN 100 UNIT in NS 100 ML IV SCH (01:38)
[2017-05-29] MEDS: POTASSIUM Cl (KCl) 100 ML IV SCH ×3 (01:38→03:23)
[2017-05-29] MEDS: VANCOMYCIN 1.5 GM in D5W 250 ML IV SCH (01:38)
[2017-05-29] MEDS: ALBUTEROL 200 PUFFS/18 GM MDI IH SCH ×6 (05:11→23:52)
[2017-05-29 05:14] LABS: BASE EXCESS -1.7 mEq/L (-2.5-2.5); BICARBONATE 22 mEq/L (22-26); MEASURED OXYGEN SATURATION 99 % (92-95); PCO2 36 mmHg (34-38); PO2 156 mmHg (65-75); TCO2 23 mEq/L (23-27)
[2017-05-29] MEDS: HEPARIN 5,000 UNIT/0.5 ML SYR SC SCH ×3 (05:14→20:57)
[2017-05-29] MEDS: PROPOFOL/EMULSION 100 ML IV SCH ×3 (05:15→19:55)
[2017-05-29 05:16] LABS: ASSIST CONTROL YES; END TIDAL CO2 29; O2 CONCENTRATIION 40 % (0-100); P/F RATIO 390 RATIO; TOTAL RATE 18
[2017-05-29 05:21] LABS: ABSOLUTE IMMATURE GRANULOCYTES 0.12 10^3/uL (0.00-0.10); ADD DIFF? NO; ADD MORPH? NO; ADD SCAN? NO; ATYPICAL LYMPHOCYTE FLAG 0 (0-99); FRAGMENT RBC FLAG 0 (0-99); HEMATOCRIT 35.9 % (40.0-51.0); HEMOGLOBIN 12.7 g/dL (13.7-17.5); LEFT SHIFT FLG 20 (0-99); LIPEMIA HEMOLYSIS FLAG 90 (0-99); MEAN CELL HEMOGLOBIN CONCENTR. 35.4 g/dL (32.4-36.7); MEAN CELL VOLUME 93.2 fL (81.5-99.8); MEAN PLATELET VOLUME 10.8 fL (8.7-11.7); PLATELET CLUMPS FLAG 30 (0-99); PLATELET COUNT 146 10^3/uL (150-400); RED BLOOD CELL COUNT 3.85 10^6/uL (4.40-6.38); RED CELL DISTRIBUTION WIDTH 12.9 % (11.5-15.2)
[2017-05-29 05:39] LABS: ALANINE AMINOTRANSFERASE 54 IU/L (21-72); ALBUMIN 2.8 g/dL (3.5-5.0); ALKALINE PHOSPHATASE 56 IU/L (38-126); ANION GAP 13 mEq/L (8-16); ASPARTATE AMINOTRANSFERASE 120 IU/L (17-59); BILIRUBIN,TOTAL 0.7 mg/dL (0.1-1.4); CALCIUM 8.4 mg/dL (8.5-10.4); CARBON DIOXIDE 24 mEq/l (22-31); CHLORIDE 113 mEq/L (97-110); CREATININE 2.5 mg/dL (0.7-1.3); GLOMERULAR FILTRATION RATE 27; GLUCOSE 198 mg/dL (70-100); MAGNESIUM 2.2 mg/dL (1.6-2.3); POTASSIUM 3.1 mEq/L (3.5-5.2); SODIUM 150 mEq/L (134-144); TOTAL PROTEIN 4.9 g/dL (6.3-8.2)
[2017-05-29] MEDS ORDERED: POTASSIUM Cl (KCl) 100 ML IV ONE (06:00)
[2017-05-29] MEDS ORDERED: D5W NS 1,000 ML IV SCH (06:00)
[2017-05-29] MEDS ORDERED: INSULIN GLARGINE 100 UNITS/ML SYRINGE SC ONE (06:22)
[2017-05-29] MEDS ORDERED: D5W 1/4 NS 1,000 ML IV SCH (06:30)
[2017-05-29] MEDS: CHLORHEXIDINE GLUCONATE 15 ML UDL PO SCH ×2 (07:49→20:57)
[2017-05-29] MEDS ORDERED: 1/2 NS 1,000 ML IV SCH (08:30)
[2017-05-29 08:35] LABS: ALANINE AMINOTRANSFERASE 57 IU/L (21-72); ALBUMIN 2.8 g/dL (3.5-5.0); ALKALINE PHOSPHATASE 61 IU/L (38-126); ANION GAP 12 mEq/L (8-16); ASPARTATE AMINOTRANSFERASE 127 IU/L (17-59); BILIRUBIN,TOTAL 0.7 mg/dL (0.1-1.4); CALCIUM 7.4 mg/dL (8.5-10.4); CARBON DIOXIDE 22 mEq/l (22-31); CHLORIDE 115 mEq/L (97-110); CREATININE 2.1 mg/dL (0.7-1.3); GLOMERULAR FILTRATION RATE 33; GLUCOSE 84 mg/dL (70-100); POTASSIUM 3.1 mEq/L (3.5-5.2); SODIUM 149 mEq/L (134-144); TOTAL PROTEIN 4.8 g/dL (6.3-8.2)
[2017-05-29] MEDS: ERTAPENEM 0.5 GM in NS 100 ML IV SCH (08:35)
[2017-05-29] MEDS ORDERED: D50W 25 GM/50 ML SYR IVP PRN (08:57)
[2017-05-29] MEDS ORDERED: PROTOCOL MAGNESIUM 1 DOSE IV PRN (08:58)
[2017-05-29] MEDS ORDERED: PROTOCOL K PHOSPHATE 1 DOSE IV PRN (08:58)
[2017-05-29] MEDS ORDERED: PROTOCOL POTASSIUM 1 DOSE MISC PRN ×2 (08:58)
[2017-05-29] MEDS ORDERED: PROTOCOL CALCIUM 1 DOSE IV PRN (08:58)
[2017-05-29] MEDS ORDERED: ERTAPENEM 1 GM in NS 100 ML IV SCH (09:00)
[2017-05-29] MEDS ORDERED: ENOXAPARIN 40 MG/0.4 ML SYR SC SCH (09:00)
[2017-05-29] MEDS: PANTOPRAZOLE SODIUM 40 MG in NS 100 ML IV SCH (09:14)
[2017-05-29] MEDS ORDERED: POTASSIUM Cl (KCl) 20 MEQ/50 ML BAG IV ONE (09:30)
[2017-05-29] MEDS: POTASSIUM Cl (KCl) 50 ML IV SCH ×2 (09:50→10:27)
[2017-05-29 09:51] LABS: IONIZED CALCIUM 1.14 MMOL/L (1.12-1.30)
--- NOTE | 2017-05-29 10:16 | PDCARPN ---
Cardiology Progress Note Assessment/Plan: Wide Complex Tachycardia- initial heart rate reported as 225 bpm with wide- complex QRS. Treated with 3 synchronized shocks. First 12-lead ECG demonstrated sinus tachycardia at 110 bpm with RBBB pattern. Arrhythmia and QRS widening are secondary to severe metabolic disturbances, in particular hyperkalemia, in the setting of DKA/lactic acidosis. Now has normal QRS duration; no recurrent tachycardia episodes. Will repeat 12-lead ECG for documentation. Elevated Troponin- secondary to renal insufficiency and probable subendocardial ischemia representing myocardial oxygen supply/demand mismatch from extreme tachycardia and hypotension. No evidence for acute ischemia. Consider pharmacologic nuclear stress test prior to hospital discharge depending on his level of recovery. Will sign off for now. Please call with any questions/issues. 05/29/17 10:13 Subjective: Unable to voice complaints. Reviewed/Discussed With: hospitalist Objective: Vital Signs (8 Hrs) Temp Pulse Resp BP Pulse Ox 05/29/17 09:00 94 16 109/66 100 05/29/17 08:00 36.9 C 98 16 111/68 100 05/29/17 07:00 98 18 105/62 100 05/29/17 06:00 94 18 110/69 100 05/29/17 05:15 90 18 05/29/17 05:00 91 18 89/56 L 100 05/29/17 04:00 36.4 C 90 18 93/54 L 100 05/29/17 03:00 88 18 91/57 L 100 05/29/17 02:30 89/55 L Intake/Output (24 Hrs) 05/28/17 05/29/17 05/30/17 05:59 05:59 05:59 Intake Total 58442 Output Total 1720 Balance 8367 Intake: IV Intake (ml) 457 IV Infused (ml) 9630 Insulin Regular Human 100 242 unit In Ns 100 ml @ Per Protocol IV CONT TISH Rx#: [id number] Norepinephrine/Ns 500 ml 172 @ Per Protocol IV CONT TISH Rx#:[id number] Ns 3,000 ml @ 500 mls/hr 2929 IV ONCE ONE Rx#: [id number] Propofol/Emulsion 100 ml 266 @ Titrate IV CONT TISH Rx# :[id number] Sodium Bicarbonate 150 825 meq In D5w 1,000 ml @ 125 mls/hr IV CONT TISH Rx#: [id number] Sodium Bicarbonate 50 meq 1145 In 1/2 Ns 1,000 ml @ 150 mls/hr IV CONT TISH Rx#: [id number] fentaNYL/NACL 100 ml @ 51 Per Protocol IV CONT TISH Rx#:[id number] Output: Urine (ml) 1470 Catheter 1470 OG Tube Output (ml) 250 Large Bore (>12 [place]) 250 Stomach Other: Weight 99.79 kg Number of Stools Catheter 0 Result Diagrams: 05/29/17 05:00 05/29/17 07:25 Cardiac Labs: Cardiac Lab Results (72 Hrs) 05/28/17 05/28/17 22:50 17:00 Troponin I 0.684 H 0.473 H - Physical Exam Constitutional: WDWN, other (Intubated and sedated.) Eyes: anicteric sclera Ears, Nose, Mouth, Throat: moist mucous membranes Cardiovascular: regular rate and rhythm, no murmurs, no rubs, no gallops Respiratory: clear to auscultate bilat Gastrointestinal: normoactive bowel sounds, no masses Skin: no rashes, no edema Neurologic: other (Intubated and sedated.) ICD10 Worksheet Patient Problems: Problems Problem Status Onset Hyperglycemia Acute Unresponsive Acute Hyperkalemia Acute Acidosis Acute
[2017-05-29] MEDS: fentaNYL/NACL 100 ML IV SCH (10:18)
[2017-05-29] MEDS ORDERED: PNEUMOCOCCAL 0.5ML VACCINE VIAL IM ONE (11:07)
--- NOTE | 2017-05-29 11:16 | CPEKG ---
Heart Rate: 93 RR Interval: 645 P-R Interval: 160 QRSD Interval: 132 QT Interval: 392 QTC Interval: 488 P Loyal: -77 QRS Loyal: 77 T Wave Loyal: 42 EKG Severity - ABNORMAL ECG - EKG Impression: ECTOPIC ATRIAL RHYTHM EKG Impression: NONSPECIFIC INTRAVENTRICULAR CONDUCTION DELAY Electronically Signed By: Milind Stubbs 30-May-2017 08:08:17
[2017-05-29 11:46] LABS: CK-MB INTERPRETATION NEGATIVE (NEGATIVE)
--- NOTE | 2017-05-29 12:06 | PDINTPN ---
Charge Weigher Progress Note Assessment/Plan: Assessment: Status post ayl-dv-meioozyp arrest 05/28, found down but had pulse and respirations. Abnormal mental status, unresponsiveness. Possible anoxic insult?. Initial CT scan unremarkable but he has not woken up or has been responsive. Severe metabolic derangements may still be playing a role. Will consider neurologic consultation tomorrow if mental status is not improving. Wide complex tachycardia in the ED, status post cardioversion x3, probably secondary to metabolic issues. Normal cardiac echo. No evidence myocardial infarction. Hypotension. Resolved. Off Levophed. CVP approximately 5. Insulin-dependent diabetes. DKA resolved, gap closed. Off drip on sliding scale insulin DKA with metabolic derangements on admission including hyperglycemia, acidosis, hyperkalemia, etc. Resolving. On electrolyte replacement protocols. Sodium has been elevated to 150, on hypotonic fluids Acute renal insufficiency with elevated BUN and creatinine. Secondary to DKA. Improving. Normal renal function and numbers in 2013. Aspiration?. Empirically put on ertapenem. Vancomycin also started empirically. No infiltrates. Can consider stopping at 72 hours. No other evidence of infection. Unclear what elevated procalcitonin means in this setting. Blood cultures pending. No sputum to be obtained. UA negative. DVT prophylaxis: On subcu heparin. GI prophylaxis: On pantoprazole Plan: Continue ventilatory support. Continue IV fluids, insulin coverage. Follow neurologic status, laboratory, chest x-ray, blood gas. Continue antibiotics for now: Discontinue at 72 hours if cultures are all negative and there is no evidence of infection. Neurologic consultation tomorrow if mental status is not improved. 50 minutes of critical care time spent directly with the patient. Discussed with the patient's mother and a family friend, respiratory, nursing, hospitalist , Cardiology, and the ICU multi disciplinary team. Subjective: Sedated, on the ventilator. Not responsive. Does move all extremities, move about in bed. Will not open eyes to stimulation. Objective: Vital Signs Temp Pulse Resp BP Pulse Ox 36.9 C 93 16 106/62 100 05/29/17 08:00 05/29/17 11:25 05/29/17 11:00 05/29/17 11:00 05/29/17 11:25 Microbiology 05/28/17 22:20 - Final Sputum, Induced/Suctioned Laboratory Results 05/29/17 05:00 05/29/17 07:25 05/28/17 05/29/17 05/30/17 05:59 05:59 05:59 Intake Total 81450 Output Total 1720 Balance 8367 PT 18.4 SEC (12.0-15.0) H 05/28/17 11:31 INR 1.53 (0.83-1.16) H 05/28/17 11:31 Laboratory Tests 05/29/17 05/29/17 05/29/17 05:00 05:00 07:25 pCO2 36 pO2 156 H ABG pH 7.41 VBG Lactic Acid 1.9 O2 Concentration % 40 Respiration Rate 18 Tidal Volume 700 PEEP 5 Calcium 7.4 L Ionized Calcium Total Bilirubin 0.7 AST 127 H ALT 57 Creatine Kinase Albumin 2.8 L 05/29/17 05/29/17 07:25 09:10 pCO2 pO2 ABG pH VBG Lactic Acid O2 Concentration % Respiration Rate Tidal Volume PEEP Calcium Ionized Calcium 1.14 Total Bilirubin AST ALT Creatine Kinase 4891 H Albumin CXR: Lines and tubes in good position. No significant infiltrates. Some bibasilar atelectasis Physical Exam - Physical Exam General Appearance: unresponsive, other (On ventilator, appears comfortable.) EENT: PERRL/EOMI (Pupils 2 mm, equal), ET tube, other (OG) Neck: normal inspection (No JVD) Respiratory: lungs clear (Anteriorly), decreased breath sounds (At bases), other , No rales, No rhonchi Cardiac/Chest: regular rate, rhythm (QRS has narrowed. No acute changes on EKG) Abdomen: non-tender, soft, No normal bowel sounds (Decreased, present) Male Genitalia: other (Martinez catheter in place. Input significantly greater than output since admission by about 8 L) Skin: normal color, warm/dry Extremities: No pedal edema Neuro/Psych: no motor/sensory deficits (Moves all extremities equally, difficult to assess), cognition abnormalities (Remains unresponsive to voice, withdraws to stimulation. No evidence he follows commands) ICD10 Worksheet Patient Problems: Problems Problem Status Onset Acidosis Acute Hyperglycemia Acute Hyperkalemia Acute Unresponsive Acute
--- NOTE | 2017-05-29 12:17 | GCON ---
[f rep st] CONSULTATION DATE OF CONSULTATION: 05/29/2017 REFERRING PHYSICIAN: Rishi Quiroga MD REASON FOR CONSULTATION: Possible sepsis. CHIEF COMPLAINT: Patient was found down. HISTORY OF PRESENT ILLNESS: This is a 56-year-old male with a past medical history signif icant for insulin-dependent diabetes mellitus, noncompliance, hypothyroidism, hypertension. He was found down yesterday by his realtor/friend. Apparently, he might have fallen out of the shower acco rding to the medical records. EMS came. They were unable to read fingerstick glucose, and he was g iven D50 in the ambulance. In the ER, he was noted to have wide complex tachycardia that was prolon ged, and he did receive 3 shocks in the emergency room. He has been resuscitated with fluids. ABG on admission was noted to have a pH of 6.98 with a bicarb of 6. He has been seen by Cardiology. He had a chest x-ray, which did not show evidence of focal pneumonia. He had a head CT, which shows e quivocal small area of left supraorbital frontal lobe edema with some premature severe cerebral atro phy. A urinalysis was done,which showed negative nitrites, negative leukocyte esterase, and WBCs 1- 3. He was given Invanz therapy at 1750, and blood cultures were not obtained until 2200. The patie nt is currently intubated and sedated in the intensive care unit. He had a high procalcitonin level of 132. Thus, there is concern for possible sepsis. History is obtained through medical records a nd discussions with providers, as patient is intubated and sedated in the intensive care unit. REVIEW OF SYSTEMS: Could not be obtained. The patient is intubated and sedated in the intensive ca re unit. PAST MEDICAL HISTORY: Significant for insulin-dependent diabetes mellitus, noncompliant; hypothyroi dism, hypertension, GERD. PAST SURGICAL HISTORY: Unknown. FAMILY HISTORY: Unknown. SOCIAL HISTORY: Per the chart, is that he lives alone. ALLERGIES: Per the chart, there are no known drug allergies. PHYSICAL EXAMINATION: VITAL SIGNS: Temperature current is 36.9, pulse is 74, blood pressure is 106 /64, respiratory rate is 16, saturation 100% on 40% FiO2 via the ventilator. GENERAL: He is in int ensive care unit, intubated and sedated. HEENT: Eyes: Pupils are pinpoint bilaterally with some m ild conjunctival injection bilaterally. Oropharynx is not well visualized. He has ET tube in place . CARDIOVASCULAR: S1, S2. Regular rate and rhythm. RESPIRATORY: Clear to auscultation anteriorl y, although limited exam. ABDOMEN: Positive bowel sounds in all 4 quadrants. Soft, nontender, non distended. No obvious organomegaly appreciated. EXTREMITIES: Without lower extremity edema. SKIN : He has some mild bruising over the knee and foot. joint effusions. He has a left upp er extremity PICC line in place. LABORATORY DATA: White blood cell count 11.6, hemoglobin 12.7, platelets are 146, neutrophil count is 89%. Coags: INR 1.5. D-dimer is 0.99. Blood gas initially was an ABG pH of 6.98, this has imp roved to 7.41. His initial bicarbonate ABG was 6, that has improved to 22,. Chemistry: Sodium 149 , potassium 3.1, chloride 115, bicarbonate 22, BUN is 52, creatinine is 2.1. AST 127, ALT 57, alkal ine phosphatase 61. Total bilirubin 0.7. Urinalysis as stated above. Urine drug screen negative. Blood cultures in 2 sets obtained after the first dose of antibiotics are pending. Sputum culture with 2+ gram-positive cocci and polys noted, cultures pending. Imaging results have all been reviewed by me and are stated above. ASSESSMENT: Diabetic ketoacidosis with possible sepsis. PLAN: Urinalysis and chest x-ray are unremarkable to define an obvious infection at this time. Blo od cultures are pending, although were obtained after the first dose of Invanz therapy. The patient is improving with aggressive supportive ICU care. The patient is currently empirically on vancomyc in and Invanz therapy. We will continue for now while cultures are in progress and are maturing. L ength of therapy of antibiotics is uncertain at this point in time. Thank you very much for providing us the opportunity to care for your patient in consultation. /[id number]/MODL
[2017-05-29] MEDS: INSULIN LISPRO 100 UNIT/ML SC SCH ×2 (12:18→18:20)
[2017-05-29 13:07] LABS: POTASSIUM 3.9 mEq/L (3.5-5.2)
--- NOTE | 2017-05-29 13:09 | HOSPPROG ---
Hospitalist Progress Note Assessment/Plan: 56 yo M with pmh of IDDM presenting with DKA, acute encephalopathy, acute hypoxic respiratory failure # DKA with coma: electrolytes have improved, unclear how long patient was down before coming to hospital, transitioned off of IV insulin to sc a this point # acute encephalopathy: as above found down and presumed to be largely due to metabolic derangements, did have WCT present on admission requiring shocks x 3. Unclear if anoxic injury could also be contributing to current MS, weaning off of sedation as we are able, head CT non diagnostic. Will ask neuro to evaluate # LONNIE: in setting of DKA and improving with IVF resuscitation, UOP adequate # ? sepsis: no clear source identified but with extremely elevated procalcitonin and mildly elevated lactate, concurrent infection possible. Procalcitonin significantly elevated but in the setting of multiorgan failure and significant metabolic derangements. No pna on serial cxr, ua negative. Cxs pending. continue abx for now pending culture data # acute hypoxic respiratory failure: intubated on arrival in the ER and currently saturating well on 40% FiO2, largely due to inability to protect his airway # AGMA: pH very low on arrival, improved with correction of dka, sp bicarb gtt # dispo: IP status, high risk requiring ICU level care Patient reviewed with Dr. Cooper and multidisciplinary care team. Subjective: no significant overnight events, patient remains intubated sedated and minimally responsive Objective: Vital Signs Temp Pulse Resp BP Pulse Ox 36.7 C 90 16 108/67 100 05/29/17 12:00 05/29/17 12:00 05/29/17 12:00 05/29/17 12:00 05/29/17 12:00 Microbiology 05/28/17 22:20 - Final Sputum, Induced/Suctioned Laboratory Results 05/29/17 05:00 05/28/17 05/29/17 05/30/17 05:59 05:59 05:59 Intake Total 30972 Output Total 1720 300 Balance 8367 -300 PT 18.4 SEC (12.0-15.0) H 05/28/17 11:31 INR 1.53 (0.83-1.16) H 05/28/17 11:31 intubated sedated anicteric ett in place rrr no mrg coarse bs throughout soft nt nd no cce warm dry well perfused - Time Spent With Patient Time Spent with Patient: greater than 35 minutes Time Spent with Patient: Greater than 35 minutes spent on this patients care, greater than 50% of time spent counseling, educating, and coordinating care regarding the above mentioned plan. ICD10 Worksheet Patient Problems: Problems Problem Status Onset Hyperglycemia Acute Unresponsive Acute Hyperkalemia Acute Acidosis Acute
[2017-05-29] MEDS: POTASSIUM Cl (KCl) 20 MEQ in 1/2 NS 1,000 ML IV SCH ×2 (13:59→22:12)
[2017-05-29] MEDS ORDERED: POTASSIUM Cl (KCl) 50 ML IV ONE (14:01)
[2017-05-29 17:18] LABS: ANION GAP 10 mEq/L (8-16); CALCIUM 7.9 mg/dL (8.5-10.4); CARBON DIOXIDE 21 mEq/l (22-31); CHLORIDE 115 mEq/L (97-110); CREATININE 1.9 mg/dL (0.7-1.3); GLOMERULAR FILTRATION RATE 37; GLUCOSE 224 mg/dL (70-100); POTASSIUM 4.3 mEq/L (3.5-5.2); SODIUM 146 mEq/L (134-144)
[2017-05-29] MEDS ORDERED: ALBUMIN 5% 500 ML IV ONE (18:10)
[2017-05-30 00:33] LABS: POTASSIUM 4.5 mEq/L (3.5-5.2)
[2017-05-30] MEDS: VANCOMYCIN 1.5 GM in D5W 250 ML IV SCH (01:00)
[2017-05-30] MEDS ORDERED: INSULIN LISPRO 100 UNIT/ML SC ONE (01:00)
[2017-05-30 01:59] LABS: HEMOGLOBIN A1C 9.9 % (4.0-6.0)
[2017-05-30] MEDS: ALBUTEROL 200 PUFFS/18 GM MDI IH SCH ×5 (04:27→19:50)
[2017-05-30] MEDS: HEPARIN 5,000 UNIT/0.5 ML SYR SC SCH (05:25)
[2017-05-30 05:32] LABS: ADD DIFF? YES; ADD MORPH? NO; ATYPICAL LYMPHOCYTE FLAG 0 (0-99); FRAGMENT RBC FLAG 0 (0-99); HEMATOCRIT 33.4 % (40.0-51.0); HEMOGLOBIN 11.6 g/dL (13.7-17.5); LIPEMIA HEMOLYSIS FLAG 90 (0-99); MEAN CELL HEMOGLOBIN 33.1 pg (27.9-34.1); MEAN CELL HEMOGLOBIN CONCENTR. 34.7 g/dL (32.4-36.7); MEAN CELL VOLUME 95.4 fL (81.5-99.8); MEAN PLATELET VOLUME 11.3 fL (8.7-11.7); PLATELET CLUMPS FLAG 10 (0-99); PLATELET COUNT 89 10^3/uL (150-400); RED CELL DISTRIBUTION WIDTH 13.5 % (11.5-15.2)
[2017-05-30 05:33] LABS: ADD SCAN? NO; LEFT SHIFT FLG 100 (0-99)
[2017-05-30 05:49] LABS: BASE EXCESS -1.6 mEq/L (-2.5-2.5); BICARBONATE 22 mEq/L (22-26); IONIZED CALCIUM 1.15 MMOL/L (1.12-1.30); MEASURED OXYGEN SATURATION 99 % (92-95); PCO2 36 mmHg (34-38); PO2 145 mmHg (65-75); TCO2 23 mEq/L (23-27)
[2017-05-30 05:50] LABS: END TIDAL CO2 30; O2 CONCENTRATIION 40 % (0-100); P/F RATIO 363 RATIO; SIMV YES
[2017-05-30 05:51] LABS: PATIENT RATE 16; PRESSURE SUPPORT 10
[2017-05-30 06:03] LABS: ALANINE AMINOTRANSFERASE 57 IU/L (21-72); ALBUMIN 2.8 g/dL (3.5-5.0); ALKALINE PHOSPHATASE 64 IU/L (38-126); ANION GAP 9 mEq/L (8-16); ASPARTATE AMINOTRANSFERASE 99 IU/L (17-59); BILIRUBIN,TOTAL 0.8 mg/dL (0.1-1.4); CALCIUM 7.8 mg/dL (8.5-10.4); CARBON DIOXIDE 24 mEq/l (22-31); CHLORIDE 115 mEq/L (97-110); CREATININE 1.4 mg/dL (0.7-1.3); GLOMERULAR FILTRATION RATE 52; GLUCOSE 255 mg/dL (70-100); MAGNESIUM 2.2 mg/dL (1.6-2.3); POTASSIUM 4.5 mEq/L (3.5-5.2); SODIUM 148 mEq/L (134-144); TOTAL PROTEIN 4.7 g/dL (6.3-8.2)
[2017-05-30 06:09] LABS: PLATELET ESTIMATE DECREASED (ADEQ)
[2017-05-30] MEDS: POTASSIUM Cl (KCl) 20 MEQ in 1/2 NS 1,000 ML IV SCH ×2 (06:25→21:58)
[2017-05-30] MEDS: INSULIN LISPRO 100 UNIT/ML SC SCH ×3 (06:42→17:20)
[2017-05-30] MEDS: ERTAPENEM 0.5 GM in NS 100 ML IV SCH (08:04)
[2017-05-30] MEDS: INSULIN GLARGINE 100 UNITS/ML SYRINGE SC SCH (08:04)
[2017-05-30] MEDS: PANTOPRAZOLE SODIUM 40 MG in NS 100 ML IV SCH (08:04)
[2017-05-30] MEDS: CHLORHEXIDINE GLUCONATE 15 ML UDL PO SCH ×2 (08:04→21:58)
--- NOTE | 2017-05-30 09:01 | PCMIDPN ---
Assessment/Plan: Assessment: Diabetic ketoacidosis-covering for possible septic etiology. Covering with vancomycin ertapenem. Patient remains obtunded. Hemodynamically stable. No positive cultures yet. Mild patchy left basilar consolidation on chest x-ray this morning. Uncertain if this is potential cause or result of being obtunded and aspirating. Plan: 1. Continue both vancomycin and ertapenem empirically. 2. Follow up on culture results. 3. Follow fever curve. 4. Follow clinical course. 05/30/17 09:00 Subjective: Patient remains poorly responsive to command. Glucose is continued around the mid 200s. No fevers and leukocytosis is improving from admission. Objective: Vancomycin #2 Ertapenem #2 Vital Signs Temp Pulse Resp BP Pulse Ox 37.6 C 88 16 105/60 100 05/30/17 07:00 05/30/17 07:00 05/30/17 07:00 05/30/17 07:00 05/30/17 07:00 Microbiology 05/28/17 22:20 - Final Sputum, Induced/Suctioned Laboratory Results 05/30/17 05:15 05/30/17 05:15 05/29/17 05/30/17 05/31/17 05:59 05:59 05:59 Intake Total 22091 4045.6 Output Total 1720 2350 Balance 8367 1695.6 - Physical Exam General Appearance: WD/WN, no apparent distress, non-toxic, other (Intubated and moderately sedated) Respiratory: lungs clear, normal breath sounds, other (Ventilator driven) Cardiac/Chest: regular rate, rhythm, No tachycardia Extremities: normal inspection Abdomen: soft, No mass Skin: normal color, warm/dry, No rash ICD10 Worksheet Patient Problems: Problems Problem Status Onset Acidosis Acute Hyperglycemia Acute Hyperkalemia Acute Unresponsive Acute
[2017-05-30] MEDS: PROPOFOL/EMULSION 100 ML IV SCH ×2 (10:00→19:06)
[2017-05-30 12:34] LABS: POTASSIUM 4.9 mEq/L (3.5-5.2)
--- NOTE | 2017-05-30 13:00 | HOSPPROG ---
Hospitalist Progress Note Assessment/Plan: 56 yo M with pmh of IDDM presenting with DKA, acute encephalopathy, acute hypoxic respiratory failure # DKA with coma: electrolytes have improved, unclear how long patient was down before coming to hospital, sugars being maintained with sc insulin # acute encephalopathy: as above found down and presumed to be largely due to metabolic derangements, did have WCT present on admission requiring shocks x 3. Unclear if anoxic injury could also be contributing to current MS, weaning off of sedation as we are able, head CT non diagnostic. Will get MRI once patient is more stable. # LONNIE: in setting of DKA and improving with IVF resuscitation, UOP adequate # ? sepsis: no clear source identified but with extremely elevated procalcitonin and mildly elevated lactate, concurrent infection possible. No pna on serial cxr, ua negative. Cxs pending. continue abx for now pending culture data # acute hypoxic respiratory failure: intubated on arrival in the ER and currently saturating well on 40% FiO2, largely due to inability to protect his airway, will attempt to wean off vent # AGMA: pH very low on arrival, improved with correction of dka, sp bicarb gtt # dispo: IP status, high risk requiring ICU level care Patient reviewed with Dr. Boone and multidisciplinary care team. Subjective: no significant overnight events, patient remains intubated and sedated, did give the nurse a thumb's up today Objective: Vital Signs Temp Pulse Resp BP Pulse Ox 37.2 C 85 14 118/79 100 05/30/17 11:18 05/30/17 12:00 05/30/17 12:00 05/30/17 11:18 05/30/17 12:00 Microbiology 05/28/17 22:20 - Final Sputum, Induced/Suctioned Laboratory Results 05/30/17 05:15 05/30/17 11:45 05/29/17 05/30/17 05/31/17 05:59 05:59 05:59 Intake Total 07375 4045.6 Output Total 1720 2350 Balance 8367 1695.6 PT 18.4 SEC (12.0-15.0) H 05/28/17 11:31 INR 1.53 (0.83-1.16) H 05/28/17 11:31 intubated sedated anicteric ett in place rrr no mrg coarse bs throughout soft nt nd no cce warm dry well perfused ICD10 Worksheet Patient Problems: Problems Problem Status Onset Acidosis Acute Hyperglycemia Acute Hyperkalemia Acute Unresponsive Acute
--- NOTE | 2017-05-30 15:05 | PDINTPN ---
Staff Scientist Progress Note Assessment/Plan: Assessment/plan: 56 M with DM found down in the shower with pulse and respirations but was severely obtunded and required intubation in ED 05/28/17. BG was also >1000 so started DKA protocol and CXR with mild infiltrates and procalcitonin 147. Because of a reported wide-complex tachycardia in the ED, he was shocked three times (despite having a pulse, but presumably 2/2 unstable VT). * Altered mental status- may have initially been the result of hyperosmolar state, versus cardiac arrest (though seems unlikely since pulse/resp intact). Initial head CT was unremarkable and he has been slow to arouse until today when he gave a "thumbs up." He was initially not moving his LUE well, but has improved since holding all sedation. Continue to observe. May eventually get MRI but follow clinically for now. * Wide complex tachycardia perhaps from severe electrolyte imbalance on arival. No further episodes and seen by cardiology. Limitaed echo was unremarkable. Trop only slightly elevated. * Respiratory failure with hypoxemia from PNA. He may have aspirated initially and the CXR has lagged behind. His extreme elevation of procalcitonin suggests bacterial infection, but may be influenced by rhabdo, MOF, shock. Will attempt weans today and consider repeat CXR depending on course. Continue abx for now and follow cultures. Recheck procalcitonin. * LONNIE likely from initial insult plus an element of rhabdo. Creatinine continues to fall (now 1.4) with adequate UOP. No HD required. * Rhabdo likely from combination of (mostly) found down and CV. Recheck CPK. * DM- there have been rumors of an insulin pump, but none since he has been here. His Hgb A1C was 9.9 suggesting poor recent control; and currently is better controlled on SSI. * Critical care time 65 minutes for multiorgan failure Subjective: Slowly improving mental status off sedation (gave thumbs up on command) Objective: Vital Signs Temp Pulse Resp BP Pulse Ox 37.2 C 80 14 90/60 L 100 05/30/17 11:18 05/30/17 14:00 05/30/17 14:00 05/30/17 14:00 05/30/17 14:00 Microbiology 05/28/17 22:20 - Final Sputum, Induced/Suctioned Laboratory Results 05/30/17 05:15 05/30/17 11:45 05/29/17 05/30/17 05/31/17 05:59 05:59 05:59 Intake Total 22790 4045.6 Output Total 1720 2350 Balance 8367 1695.6 PT 18.4 SEC (12.0-15.0) H 05/28/17 11:31 INR 1.53 (0.83-1.16) H 05/28/17 11:31 Physical Exam - Physical Exam General Appearance: no apparent distress, obtunded EENT: PERRL/EOMI Neck: supple Respiratory: lungs clear, normal breath sounds, No respiratory distress Cardiac/Chest: regular rate, rhythm, No edema Abdomen: non-tender, soft, No distended Skin: normal color, warm/dry Lymphatic: no adenopathy Extremities: No pedal edema Neuro/Psych: No abnormal nurse school II-XII ICD10 Worksheet Patient Problems: Problems Problem Status Onset Acidosis Acute Hyperglycemia Acute Hyperkalemia Acute Unresponsive Acute
[2017-05-30] MEDS: fentaNYL/NACL 100 ML IV SCH (16:19)
[2017-05-30 18:19] LABS: POTASSIUM 4.7 mEq/L (3.5-5.2)
[2017-05-31] MEDS: ALBUTEROL 200 PUFFS/18 GM MDI IH SCH ×5 (00:05→16:30)
[2017-05-31] MEDS: INSULIN LISPRO 100 UNIT/ML SC SCH ×4 (00:54→19:11)
[2017-05-31] MEDS: VANCOMYCIN 1.5 GM in D5W 250 ML IV SCH (00:54)
[2017-05-31 01:21] LABS: POTASSIUM 4.9 mEq/L (3.5-5.2)
[2017-05-31 04:41] LABS: % IMMATURE GRANULYOCYTES 0.2 % (0.0-1.1); ABSOLUTE IMMATURE GRANULOCYTES 0.02 10^3/uL (0.00-0.10); ADD DIFF? NO; ADD MORPH? NO; ADD SCAN? NO; ATYPICAL LYMPHOCYTE FLAG 0 (0-99); FRAGMENT RBC FLAG 0 (0-99); HEMATOCRIT 32.8 % (40.0-51.0); LEFT SHIFT FLG 20 (0-99); LIPEMIA HEMOLYSIS FLAG 80 (0-99); MEAN CELL HEMOGLOBIN 33.1 pg (27.9-34.1); MEAN CELL HEMOGLOBIN CONCENTR. 33.5 g/dL (32.4-36.7); MEAN CELL VOLUME 98.8 fL (81.5-99.8); MEAN PLATELET VOLUME 11.1 fL (8.7-11.7); PLATELET CLUMPS FLAG 0 (0-99); PLATELET COUNT 63 10^3/uL (150-400); RED BLOOD CELL COUNT 3.32 10^6/uL (4.40-6.38); RED CELL DISTRIBUTION WIDTH 13.8 % (11.5-15.2)
[2017-05-31] MEDS: fentaNYL/NACL 100 ML IV SCH (04:41)
[2017-05-31] MEDS: POTASSIUM Cl (KCl) 20 MEQ in 1/2 NS 1,000 ML IV SCH (04:41)
[2017-05-31] MEDS: PROPOFOL/EMULSION 100 ML IV SCH (04:42)
[2017-05-31 04:44] LABS: IONIZED CALCIUM 1.09 MMOL/L (1.12-1.30)
[2017-05-31 05:03] LABS: MAGNESIUM 2.3 mg/dL (1.6-2.3); POTASSIUM 4.7 mEq/L (3.5-5.2)
[2017-05-31] MEDS ORDERED: CALCIUM GLUCONATE 50 ML IV ONE (05:09)
[2017-05-31] MEDS: CHLORHEXIDINE GLUCONATE 15 ML UDL PO SCH ×2 (07:39→23:57)
[2017-05-31] MEDS: ERTAPENEM 1 GM in NS 100 ML IV SCH (08:05)
[2017-05-31] MEDS: PANTOPRAZOLE SODIUM 40 MG in NS 100 ML IV SCH (08:05)
[2017-05-31] MEDS ORDERED: ENOXAPARIN 40 MG/0.4 ML SYR SC SCH (09:00)
[2017-05-31] MEDS: INSULIN GLARGINE 100 UNITS/ML SYRINGE SC SCH (09:10)
[2017-05-31 09:49] LABS: ANION GAP 6 mEq/L (8-16); CALCIUM 8.1 mg/dL (8.5-10.4); CARBON DIOXIDE 25 mEq/l (22-31); CHLORIDE 118 mEq/L (97-110); CREATININE 0.8 mg/dL (0.7-1.3); GLOMERULAR FILTRATION RATE > 60; GLUCOSE 170 mg/dL (70-100); POTASSIUM 4.4 mEq/L (3.5-5.2); SODIUM 149 mEq/L (134-144)
[2017-05-31] MEDS: DEXMEDETOMIDINE HCL 400 MCG in NS 100 ML IV SCH ×2 (11:45→14:59)
[2017-05-31] MEDS ORDERED: K PHOS 10 MMOL in D5W 250 ML IV ONE (12:00)
--- NOTE | 2017-05-31 12:06 | PCMIDPN ---
Assessment/Plan: Assessment/Plan: 1. DKa with possible sepsis: - Extremely high procalcitonin but unclear if secondary to sepsis/infection -blood cx ngtd, Ua unremarkable. Sputum cx with Group B strep 4+ - Mild changes on CXR now with Left consolidation, unclear if patient aspirated. -Wbc improved. -Currently on empiric antibotics with vanco, invanz. -will dc vanco and continue with invanz for now. -plan for only short course for possible aspiration meds vanco 1.5g qd- 05/29/17 invanz 1g daily- 05/28/17---#4 Subjective: Afebrile. Sitting up in bed , agitated, moving around, Appears that ETT may have been pulled out some by patient. RN/Resp therapist notified. patient awake , denies pain. Objective: Vital Signs Temp Pulse Resp BP Pulse Ox 37.2 C 69 14 119/73 99 05/31/17 07:00 05/31/17 11:46 05/31/17 11:00 05/31/17 11:00 05/31/17 11:46 Microbiology 05/28/17 22:20 - Final Sputum, Induced/Suctioned Sputum Culture - Final Strep Agalactiae Group B Laboratory Results 05/31/17 04:30 05/31/17 09:00 05/30/17 05/31/17 06/01/17 05:59 05:59 05:59 Intake Total 4045.6 3891 Output Total 2350 2275 Balance 1695.6 1616 - Physical Exam General Appearance: alert, other (restless) EENT: ET Tube Respiratory: lungs clear (anteriorly) Cardiac/Chest: regular rate, rhythm Extremities: No swelling Abdomen: normal bowel sounds, non-tender, soft, No distended Male Genitalia: nava Skin: No erythema ICD10 Worksheet Patient Problems: Problems Problem Status Onset Acidosis Acute Hyperglycemia Acute Hyperkalemia Acute Unresponsive Acute
--- NOTE | 2017-05-31 12:32 | PDINTPN ---
Seed Collector Progress Note Assessment/Plan: Assessment/plan: 56 M with DM found down in the shower with pulse and respirations but was severely obtunded and required intubation in ED 05/28/17. BG was also >1000 so started DKA protocol and CXR with mild infiltrates and procalcitonin 147. Because of a reported wide-complex tachycardia in the ED, he was shocked three times (despite having a pulse, but presumably 2/2 unstable VT). * Altered mental status- may have initially been the result of hyperosmolar state, versus cardiac arrest (though seems unlikely since pulse/resp intact). Significant improvement today and moving all extremities equally. DC fentanyl, propofol in favor of precedex prn * Wide complex tachycardia perhaps from severe electrolyte imbalance on arrival. No further episodes and seen by cardiology. Limited echo was unremarkable. Trop only slightly elevated. Currently in NSR * Respiratory failure with hypoxemia from PNA. He may have aspirated initially and the CXR has lagged behind. His extreme elevation of procalcitonin suggests bacterial infection, but may be influenced by rhabdo, MOF, shock. Weaning well today with likely extubation. * LONNIE likely from initial insult plus an element of rhabdo. Creatinine continues to fall (now 1.4) with adequate UOP. No HD required. * Rhabdo likely from combination of (mostly) found down and CV. Recheck CPK. * DM- there have been rumors of an insulin pump, but none since he has been here. His Hgb A1C was 9.9 suggesting poor recent control; and currently is better controlled on SSI. Changing D51/2 NS+ KCL to NS today * thrombocytopenia- platelets have steadily fallen since admission from >200 and was previously treated with heparin. No other obvious offending agents and clinically not DIC. Hold lovenox and send HIT panel. * Critical care time 65 minutes for multiorgan failure 05/31/17 12:25 Objective: Vital Signs Temp Pulse Resp BP Pulse Ox 37.2 C 69 14 119/73 99 05/31/17 07:00 05/31/17 11:46 05/31/17 11:00 05/31/17 11:00 05/31/17 11:46 Microbiology 05/28/17 22:20 - Final Sputum, Induced/Suctioned Sputum Culture - Final Strep Agalactiae Group B Laboratory Results 05/31/17 04:30 05/31/17 09:00 05/30/17 05/31/17 06/01/17 05:59 05:59 05:59 Intake Total 4045.6 3891 Output Total 2350 2275 Balance 1695.6 1616 PT 18.4 SEC (12.0-15.0) H 05/28/17 11:31 INR 1.53 (0.83-1.16) H 05/28/17 11:31 Physical Exam - Physical Exam General Appearance: no apparent distress EENT: PERRL/EOMI Neck: supple Respiratory: lungs clear, normal breath sounds, No respiratory distress Cardiac/Chest: regular rate, rhythm, No edema Abdomen: normal bowel sounds, non-tender, soft, No distended Skin: normal color, warm/dry Lymphatic: no adenopathy Extremities: No pedal edema Neuro/Psych: cognition abnormalities ICD10 Worksheet Patient Problems: Problems Problem Status Onset Acidosis Acute Hyperglycemia Acute Hyperkalemia Acute Unresponsive Acute
--- NOTE | 2017-05-31 13:18 | HOSPPROG ---
Hospitalist Progress Note Assessment/Plan: 56 yo M with pmh of IDDM presenting with DKA, acute encephalopathy, acute hypoxic respiratory failure # DKA with coma: electrolytes have improved, unclear how long patient was down before coming to hospital, sugars being maintained with sc insulin. Possible that he previously had an insulin pump and that this episode was related to non compliance but this is unclear. # acute encephalopathy: as above found down and presumed to be largely due to metabolic derangements, did have WCT present on admission requiring shocks x 3. Seems to be improving at least intermittently # LONNIE: in setting of DKA and improving with IVF resuscitation, UOP adequate # thrombocytopenia: plts continue to trend down since arrival, now 69. HIT ab pending, dc lmwh. # ? sepsis: no clear source identified but with extremely elevated procalcitonin and mildly elevated lactate, concurrent infection possible. Possible aspiration pna that has become apparent after serial cxr's, dc vanc/ continue invanz. Blood cxs with ngtd. # acute hypoxic respiratory failure: will attempt to extubate today # AGMA: pH very low on arrival, improved with correction of dka, sp bicarb gtt # dispo: IP status, high risk requiring ICU level care Patient reviewed with Dr. Boone and multidisciplinary care team. Subjective: no significant overnight events, patient slightly agitated when sedation being weaned, intermittently following commands Objective: Vital Signs Temp Pulse Resp BP Pulse Ox 37.2 C 55 L 17 122/71 H 95 05/31/17 07:00 05/31/17 13:00 05/31/17 13:00 05/31/17 13:00 05/31/17 13:00 Microbiology 05/28/17 22:20 - Final Sputum, Induced/Suctioned Sputum Culture - Final Strep Agalactiae Group B Laboratory Results 05/31/17 04:30 05/31/17 09:00 05/30/17 05/31/17 06/01/17 05:59 05:59 05:59 Intake Total 4045.6 3891 Output Total 2350 2275 Balance 1695.6 1616 PT 18.4 SEC (12.0-15.0) H 05/28/17 11:31 INR 1.53 (0.83-1.16) H 05/28/17 11:31 intubated sedated anicteric ett in place rrr no mrg coarse bs throughout soft nt nd no cce warm dry well perfused ICD10 Worksheet Patient Problems: Problems Problem Status Onset Acidosis Acute Hyperglycemia Acute Hyperkalemia Acute Unresponsive Acute
[2017-05-31] MEDS ORDERED: NS 1,000 ML IV SCH (14:30)
[2017-05-31] MEDS: INSULIN LISPRO 100 UNIT/1 ML VIAL HIGH SC SCH (18:41)
[2017-05-31 19:17] LABS: POTASSIUM 5.2 mEq/L (3.5-5.2)
[2017-06-01] MEDS: INSULIN LISPRO 100 UNIT/1 ML VIAL HIGH SC SCH ×4 (00:48→18:31)
[2017-06-01 04:11] LABS: IONIZED CALCIUM 1.14 MMOL/L (1.12-1.30)
[2017-06-01 04:14] LABS: % IMMATURE GRANULYOCYTES 0.3 % (0.0-1.1); ABSOLUTE IMMATURE GRANULOCYTES 0.02 10^3/uL (0.00-0.10); ADD DIFF? NO; ADD MORPH? NO; ADD SCAN? NO; ATYPICAL LYMPHOCYTE FLAG 0 (0-99); FRAGMENT RBC FLAG 0 (0-99); HEMATOCRIT 35.8 % (40.0-51.0); HEMOGLOBIN 11.9 g/dL (13.7-17.5); LEFT SHIFT FLG 0 (0-99); LIPEMIA HEMOLYSIS FLAG 80 (0-99); MEAN CELL HEMOGLOBIN 33.4 pg (27.9-34.1); MEAN CELL HEMOGLOBIN CONCENTR. 33.2 g/dL (32.4-36.7); MEAN CELL VOLUME 100.6 fL (81.5-99.8); MEAN PLATELET VOLUME 11.4 fL (8.7-11.7); PLATELET CLUMPS FLAG 0 (0-99); PLATELET COUNT 66 10^3/uL (150-400); RED BLOOD CELL COUNT 3.56 10^6/uL (4.40-6.38); RED CELL DISTRIBUTION WIDTH 13.2 % (11.5-15.2)
[2017-06-01 04:53] LABS: ANION GAP 11 mEq/L (8-16); CALCIUM 8.3 mg/dL (8.5-10.4); CARBON DIOXIDE 19 mEq/l (22-31); CHLORIDE 119 mEq/L (97-110); CREATININE 0.7 mg/dL (0.7-1.3); GLOMERULAR FILTRATION RATE > 60; GLUCOSE 181 mg/dL (70-100); MAGNESIUM 2.3 mg/dL (1.6-2.3); POTASSIUM 5.1 mEq/L (3.5-5.2); SODIUM 149 mEq/L (134-144)
[2017-06-01] MEDS: CHLORHEXIDINE GLUCONATE 15 ML UDL PO SCH ×2 (07:56→20:43)
[2017-06-01] MEDS: ERTAPENEM 1 GM in NS 100 ML IV SCH (08:28)
[2017-06-01] MEDS: PANTOPRAZOLE SODIUM 40 MG in NS 100 ML IV SCH (08:28)
[2017-06-01] MEDS: INSULIN GLARGINE 100 UNITS/ML SYRINGE SC SCH (08:37)
--- NOTE | 2017-06-01 09:36 | PCMIDPN ---
Assessment/Plan: # DKA with concern for sepsis due to elevated procalcitonin & unknown precipitators of DKA. only possible source of infection could be considered is aspiration pneumonia With left lower lobe infiltrate/atelectasis. Sputum cultures showed group B strep -- will re-send procalcitonin -- likely discontinue ertapenem today for short course treatment, 5 days. await procalcitonin level -- discontinue Nava when feasible # acute renal failure: Resolved Microbiology 05/28/17 22:20 Sputum, Induced/Suctioned Sputum Culture - Final Strep Agalactiae Group B 05/28/17 22:10 Blood Cx (2) ngtd medications Ertapenem 1 g IV daily, # [address] Boone and [place] Subjective: no specific events overnight Objective: Vital Signs Temp Pulse Resp BP Pulse Ox 36.8 C 63 19 126/76 H 95 06/01/17 07:00 06/01/17 08:00 06/01/17 08:00 06/01/17 08:00 06/01/17 08:00 Laboratory Results 06/01/17 04:00 06/01/17 04:00 05/31/17 06/01/17 06/02/17 05:59 05:59 05:59 Intake Total 3891 2708 Output Total 2275 1300 Balance 1616 1408 - Physical Exam General Appearance: alert, no apparent distress Respiratory: lungs clear, No accessory muscle use Neck: supple Cardiac/Chest: regular rate, rhythm Extremities: No pedal edema Peripheral Pulses: 1+: dorsalis-pedis (R), dorsalis-pedis (L) Abdomen: non-tender, soft Male Genitalia: nava Skin: pallor, No jaundice, No rash Neuro/Psych: oriented x 3 ( but difficult conversationally) - Line/s LUE PICC Lines: No drainage, No erythema ICD10 Worksheet Patient Problems: Problems Problem Status Onset Acidosis Acute Hyperglycemia Acute Hyperkalemia Acute Unresponsive Acute
--- NOTE | 2017-06-01 09:42 | PDINTPN ---
Doorshaker Progress Note Assessment/Plan: Assessment/plan: 56 M with DM found down in the shower with pulse and respirations but was severely obtunded and required intubation in ED 05/28/17. BG was also >1000 so started DKA protocol and CXR with mild infiltrates and procalcitonin 147. Because of a reported wide-complex tachycardia in the ED, he was shocked three times (despite having a pulse, but presumably 2/2 unstable VT). * Altered mental status- may have initially been the result of hyperosmolar state/DKA, versus cardiac arrest (though seems unlikely since pulse/resp intact) . Still delerius, but improved. Remains on precedex for impulsive behavior. Unable to recall precipitating events. * Wide complex tachycardia perhaps from severe electrolyte imbalance on arrival. No further episodes and seen by cardiology. Limited echo was unremarkable. Trop only slightly elevated. Currently in NSR * Respiratory failure with hypoxemia from presumed PNA. He may have aspirated initially and the CXR has lagged behind. Extubated 05/31 without difficulty and now on RA * PNA? His extreme elevation of procalcitonin suggests bacterial infection, but likely influenced by rhabdo, MOF, shock. Agree with plans to recheck and consider dc antibiotics if low. Discussed with Drs. Lacy and [place]. * LONNIE likely from initial insult plus an element of rhabdo. Creatinine continues to fall (now 0.7) with adequate UOP. No HD required. * Rhabdo likely from combination of (mostly) found down and CV. Resolved * DM- there have been rumors of an insulin pump, but none since he has been here. His Hgb A1C was 9.9 suggesting poor recent control; and currently is better controlled on SSI. Changing D51/2 NS+ KCL to NS today * thrombocytopenia- platelets have steadily fallen since admission from >200 and was previously treated with heparin. No other obvious offending agents and clinically not DIC. Lovenox held and slight rise to 66 today. No argatroban/ arixtra for now in absence of VTE. * Hypernatremia- sodium remains slightly elevated at 149 after change in IVF 05/31 as above. May need 1/2 NS without KCl or D5. * Appropriate for step down Objective: Vital Signs Temp Pulse Resp BP Pulse Ox 36.8 C 63 19 126/76 H 95 06/01/17 07:00 06/01/17 08:00 06/01/17 08:00 06/01/17 08:00 06/01/17 08:00 Laboratory Results 06/01/17 04:00 06/01/17 04:00 05/31/17 06/01/17 06/02/17 05:59 05:59 05:59 Intake Total 3891 2708 Output Total 2275 1300 Balance 1616 1408 PT 18.4 SEC (12.0-15.0) H 05/28/17 11:31 INR 1.53 (0.83-1.16) H 05/28/17 11:31 Physical Exam - Physical Exam General Appearance: WD/WN, alert, no apparent distress, other (confused) EENT: PERRL/EOMI Neck: supple Respiratory: lungs clear, normal breath sounds, No respiratory distress Cardiac/Chest: regular rate, rhythm, No edema Abdomen: non-tender, soft, No distended Skin: normal color, warm/dry Lymphatic: no adenopathy Neuro/Psych: alert, normal mood/affect, oriented x 3 ICD10 Worksheet Patient Problems: Problems Problem Status Onset Acidosis Acute Hyperglycemia Acute Hyperkalemia Acute Unresponsive Acute
[2017-06-01] MEDS ORDERED: PROTOCOL POTASSIUM 1 DOSE MISC PRN (17:11)
--- NOTE | 2017-06-01 17:17 | HOSPPROG ---
Hospitalist Progress Note Assessment/Plan: 56 yo M with pmh of IDDM presenting with DKA, acute encephalopathy, acute hypoxic respiratory failure # DKA with coma: electrolytes have improved, unclear how long patient was down before coming to hospital, sugars being maintained with sc insulin. Possible that he previously had an insulin pump and that this episode was related to non compliance but this is unclear. # acute encephalopathy: as above found down and presumed to be largely due to metabolic derangements, did have WCT present on admission requiring shocks x 3. Currently awake and protecting airway but not consistently following commands, and requiring precedex for agitation. ? anoxic event prior to admission. MRI brain when able to obtain. # LONNIE: in setting of DKA and improving with IVF resuscitation, UOP adequate # thrombocytopenia: plts continue to trend down since arrival, now 69. HIT ab pending, dc lmwh. # ? sepsis: no clear source identified but with extremely elevated procalcitonin on arrival that has trended down but still >4 , ? aspiration pna, has been on invanz but will dc and monitor off of abx # acute hypoxic respiratory failure: extubated now and doing well # AGMA: pH very low on arrival, improved with correction of dka, sp bicarb gtt # dispo: IP status, high risk requiring ICU level care Patient reviewed with Dr. Boone/Dr. Lacy and multidisciplinary care team. Subjective: patient extubated yesterday, awake and agitated today Objective: Vital Signs Temp Pulse Resp BP Pulse Ox 37.2 C 83 19 123/63 H 98 06/01/17 17:00 06/01/17 17:00 06/01/17 17:00 06/01/17 17:00 06/01/17 17:00 Laboratory Results 06/01/17 04:00 06/01/17 04:00 05/31/17 06/01/17 06/02/17 05:59 05:59 05:59 Intake Total 3891 2708 Output Total 2275 1300 350 Balance 1616 1408 -350 PT 18.4 SEC (12.0-15.0) H 05/28/17 11:31 INR 1.53 (0.83-1.16) H 05/28/17 11:31 awake agitated, moving all 4 extremities anicteric ett in place rrr no mrg coarse bs throughout soft nt nd no cce warm dry well perfused agitated moving all around ICD10 Worksheet Patient Problems: Problems Problem Status Onset Acidosis Acute Hyperglycemia Acute Hyperkalemia Acute Unresponsive Acute
[2017-06-01 20:40] LABS: POTASSIUM 2.8 mEq/L (3.5-5.2)
[2017-06-01] MEDS: POTASSIUM Cl (KCl) 50 ML IV SCH (21:08)
[2017-06-02] MEDS: INSULIN LISPRO 100 UNIT/1 ML VIAL HIGH SC SCH ×6 (00:04→21:47)
[2017-06-02 04:38] LABS: IONIZED CALCIUM 1.22 MMOL/L (1.12-1.30)
[2017-06-02 04:39] LABS: HEMATOCRIT 32.4 % (40.0-51.0); HEMOGLOBIN 10.9 g/dL (13.7-17.5); MEAN CELL HEMOGLOBIN 32.8 pg (27.9-34.1); MEAN CELL HEMOGLOBIN CONCENTR. 33.6 g/dL (32.4-36.7); MEAN CELL VOLUME 97.6 fL (81.5-99.8); RED BLOOD CELL COUNT 3.32 10^6/uL (4.40-6.38); RED CELL DISTRIBUTION WIDTH 13.1 % (11.5-15.2)
[2017-06-02 05:07] LABS: ANION GAP 13 mEq/L (8-16); CALCIUM 8.6 mg/dL (8.5-10.4); CARBON DIOXIDE 19 mEq/l (22-31); CHLORIDE 118 mEq/L (97-110); CREATININE 0.8 mg/dL (0.7-1.3); GLOMERULAR FILTRATION RATE > 60; GLUCOSE 151 mg/dL (70-100); MAGNESIUM 1.8 mg/dL (1.6-2.3); POTASSIUM 4.1 mEq/L (3.5-5.2); SODIUM 150 mEq/L (134-144)
[2017-06-02] MEDS ORDERED: MAGNESIUM SULF 1 GM/DEXTROSE 100 ML IV ONE (05:33)
[2017-06-02] MEDS: INSULIN GLARGINE 100 UNITS/ML SYRINGE SC SCH (10:23)
[2017-06-02] MEDS: PANTOPRAZOLE SODIUM 40 MG in NS 100 ML IV SCH (10:23)
--- NOTE | 2017-06-02 10:41 | HOSPPROG ---
Hospitalist Progress Note Assessment/Plan: DIAGNOSES: -acute encephalopathy with what sounds like chronic encephalopathy # acute triggers include his diabetic hyperosmolar state with ketosis, and probably the hypernatremia and benzodiazepines and other medications he has received here are having a significant impact -diabetic ketoacidosis with profound hyper osmolar state -acute kidney injury -question of possible sepsis, question of possible pneumonia; signs of possible sepsis have resolved -acute hypoxemic respiratory failure -thrombocytopenia -chronic neurologic dysfunction with memory failure and other symptoms described by family; the etiology of this is undetermined with a broad differential diagnosis but he has a normal CT of the head PLANS: -check urine osmolality T and sodium level -definitive plans to manage electrolytes after that data is back -will avoid using any benzodiazepines or other psychoactive medications; if necessary can use a newer generation antipsychotic to control behavior but will Continue to use other non medicinal measures 1st -continue following managed sugars as indicated -discontinue proton pump inhibitor at this time -DVT prophylaxis -at the moment due to ongoing delirium and impulsivity the patient will require 1 on 1 observation SUBJECTIVE: States he feels well w no pain eating He is not independently ambulatory per nurses remains very confused OBJECTIVE Vitals reviewed: stable w no fever Director Cost, my review: Exam: alert talkative, in fact rambles incessantly in conversation Remains quite delirious and even delusional but not hallucinating He is quite relaxed this time, did have some Ativan this morning skin warm dry color ok resps not labored lungs clear BSs heart regular abd soft nondistended nontender, bowel sounds present limbs warm, no edema iv site ok Lab Data: Na remains elevated at 150 sugars mostly adequately controlled but occasionally over 200 Objective: Vital Signs Temp Pulse Resp BP Pulse Ox 37.3 C 65 19 131/75 H 98 06/02/17 08:00 06/02/17 08:00 06/02/17 08:00 06/02/17 08:00 06/02/17 08:00 Laboratory Results 06/02/17 04:30 06/02/17 04:30 06/01/17 06/02/17 06/03/17 06:59 06:59 06:59 Intake Total 2708 1357 Output Total 1300 350 Balance 1408 1007 PT 18.4 SEC (12.0-15.0) H 05/28/17 11:31 INR 1.53 (0.83-1.16) H 05/28/17 11:31 ICD10 Worksheet Patient Problems: Problems Problem Status Onset Acidosis Acute Hyperglycemia Acute Hyperkalemia Acute Unresponsive Acute
--- NOTE | 2017-06-02 12:26 | PDINTPN ---
Fur Trimming Machine Operator Progress Note Assessment/Plan: Assessment/plan: 56 M with DM found down in the shower with pulse and respirations but was severely obtunded and required intubation in ED 05/28/17. BG was also >1000 so started DKA protocol and CXR with mild infiltrates and procalcitonin 147. Because of a reported wide-complex tachycardia in the ED, he was shocked three times (despite having a pulse, but presumably 2/2 unstable VT). * Altered mental status- may have initially been the result of hyperosmolar state/DKA, versus cardiac arrest (though seems unlikely since pulse/resp intact) . Delerium persists, but improved. Now off precedex, but decisional capacity remains impaired. His confusional state is likely toxic/metabolic as it is non focal and clinically makes sense. His head CT on arrival was unremarkable, so not sure an MRI would be useful (perhaps for anoxic injury) and would require conscious sedation to achieve. A neurology consult is not unreasonable. * Unstable wide complex tachycardia on admission, perhaps from severe electrolyte imbalance. He was shocked 3 times in the ED, but no further episodes and seen by cardiology. Limited echo was unremarkable. Trop only slightly elevated. Currently in NSR * Respiratory failure with hypoxemia from presumed PNA. He may have aspirated initially and the CXR has lagged behind. Extubated 05/31 without difficulty and remains on RA * PNA? His extreme elevation of procalcitonin suggests bacterial infection, but likely influenced by rhabdo, MOF, shock. Repeat procalcitonin was 4, which would normally indicate bacterial infection; however, the dramatic fall suggests otherwise. Abx held 06/01 and he remains afebrile with a normal WBC. Continue to observe. * LONNIE likely from initial insult plus an element of rhabdo. resolved * Rhabdo likely from combination of (mostly) found down and CV. Resolved * DM- there have been rumors of an insulin pump, but none since he has been here. His Hgb A1C was 9.9 suggesting poor recent control; and currently is better controlled on SSI. Changed D5-/2 NS+ KCL to NS 05/31/17 * thrombocytopenia- platelets have steadily fallen since admission from >200 and was previously treated with heparin. No other obvious offending agents and clinically not DIC. Lovenox held and slight rise to 66 today. No argatroban/ arixtra for now in absence of VTE. * Hypernatremia- sodium remains slightly elevated at 150 after change in IVF 05/31 as above. May need 1/2 NS without KCl or D5, and sent Uosm and Ines today to evaluate volume status. * Appropriate for floor with sitter 06/02/17 12:20 Objective: Vital Signs Temp Pulse Resp BP Pulse Ox 37.3 C 65 19 131/75 H 98 06/02/17 08:00 06/02/17 08:00 06/02/17 08:00 06/02/17 08:00 06/02/17 08:00 Laboratory Results 06/02/17 04:30 06/02/17 04:30 06/01/17 06/02/17 06/03/17 05:59 05:59 05:59 Intake Total 2708 1357 Output Total 1300 350 Balance 1408 1007 PT 18.4 SEC (12.0-15.0) H 05/28/17 11:31 INR 1.53 (0.83-1.16) H 05/28/17 11:31 Physical Exam - Physical Exam General Appearance: alert, no apparent distress, other (confused) EENT: PERRL/EOMI Neck: supple Respiratory: lungs clear, normal breath sounds, No respiratory distress Cardiac/Chest: regular rate, rhythm, No edema Abdomen: non-tender, soft, No distended Skin: normal color, warm/dry Lymphatic: no adenopathy Extremities: No pedal edema Neuro/Psych: alert, normal mood/affect, cognition abnormalities ICD10 Worksheet Patient Problems: Problems Problem Status Onset Acidosis Acute Hyperglycemia Acute Hyperkalemia Acute Unresponsive Acute
[2017-06-02] MEDS ORDERED: QUEtiapine FUMARATE 25 MG TAB PO PRN (16:01)
--- NOTE | 2017-06-02 17:47 | PCMIDPN ---
Assessment/Plan: Assessment: entered in error Plan: Subjective: entered in error Objective: entered in error Vital Signs Temp Pulse Resp BP Pulse Ox 36.9 C 93 16 115/76 96 06/02/17 16:00 06/02/17 16:00 06/02/17 16:00 06/02/17 16:00 06/02/17 16:00 Laboratory Results 06/02/17 04:30 06/02/17 04:30 06/01/17 06/02/17 06/03/17 05:59 05:59 05:59 Intake Total 7047 1357 Output Total 1300 350 250 Balance 1408 1007 -250 ICD10 Worksheet Patient Problems: Problems Problem Status Onset Acidosis Acute Hyperglycemia Acute Hyperkalemia Acute Unresponsive Acute
[2017-06-02 18:41] LABS: HEPARIN INDUCED ANTIBODY Negative (Negative); HEPARIN-PF4 IgG ANTIBODY ELISA < 0.075 OD (<0.400)
[2017-06-02] MEDS: MELATONIN 3 MG TAB PO SCH (21:48)
[2017-06-02] MEDS ORDERED: OLANZapine DISINTEGR 5 MG TAB PO SCH (23:30)
[2017-06-03] MEDS ORDERED: OLANZapine DISINTEGR 5 MG TAB PO ONE (03:14)
[2017-06-03 06:21] LABS: IONIZED CALCIUM 1.13 MMOL/L (1.12-1.30)
[2017-06-03 06:37] LABS: ANION GAP 12 mEq/L (8-16); CALCIUM 7.9 mg/dL (8.5-10.4); CARBON DIOXIDE 20 mEq/l (22-31); CHLORIDE 114 mEq/L (97-110); CREATININE 0.6 mg/dL (0.7-1.3); GLOMERULAR FILTRATION RATE > 60; GLUCOSE 230 mg/dL (70-100); MAGNESIUM 1.7 mg/dL (1.6-2.3); POTASSIUM 3.8 mEq/L (3.5-5.2); SODIUM 146 mEq/L (134-144)
[2017-06-03] MEDS: INSULIN LISPRO 100 UNIT/1 ML VIAL HIGH SC SCH ×2 (08:17→12:31)
[2017-06-03] MEDS: INSULIN GLARGINE 100 UNITS/ML SYRINGE SC SCH (09:00)
[2017-06-03] MEDS ORDERED: POTASSIUM CL 10 MEQ TAB PO ONE ×2 (09:57→20:00)
[2017-06-03] MEDS: LEVOTHYROXINE 88 MCG TAB PO SCH (11:39)
[2017-06-03] MEDS: ERGOCALCIFEROL 50,000 I.UNIT CAP PO SCH (11:43)
--- NOTE | 2017-06-03 14:25 | HOSPPROG ---
Hospitalist Progress Note Assessment/Plan: DIAGNOSES: -acute encephalopathy with what sounds like chronic encephalopathy or possably a dementia, also with hx closed head injury # acute triggers include his diabetic hyperosmolar state with ketosis, and probably the hypernatremia and benzodiazepines and other medications he has received here are having a significant impact -diabetic ketoacidosis with profound hyper osmolar state, resolved -acute kidney injury -question of possible sepsis, question of possible pneumonia; signs of possible sepsis have resolved -acute hypoxemic respiratory failure, resolved -thrombocytopenia -chronic neurologic dysfunction with memory failure and other symptoms described by family; the etiology of this is undetermined with a broad differential diagnosis but he has a normal CT of the head; unable to formally assess during severe acute delirium He remains quite delirious, requiring constant attention from staff, and therefore is not yet stable enough for dc from hospital. He will need ongoing therapies for his inability to safely ambulate or care for himself. Once the delirium settles to the point that he can be managed in a lower acuity setting we can transfer him to rehab or SNF facility. Reviewed with Dr Boone today PLANS: -will avoid using any benzodiazepines or other psychoactive medications; if necessary can use a newer generation antipsychotic to control behavior but will Continue to use other non medicinal measures 1st -continue following sugars, manage as indicated -DVT prophylaxis -will increase insulin at this time -at the moment due to ongoing delirium and impulsivity the patient will require 1 on 1 observation SUBJECTIVE: Pt is too confused to get a real symptom assessment He is not independently ambulatory per nurses remains very confused and had significant hallucinations and agitation last night requiring medication for safety/control OBJECTIVE Vitals reviewed: stable w no fever Financial Systems Director, my review: Exam: alert talkative, in fact rambles incessantly in conversation Remains quite delirious and even delusional but not hallucinating He is quite relaxed this time, did have some Ativan this morning skin warm dry color ok resps not labored lungs clear BSs heart regular abd soft nondistended nontender, bowel sounds present limbs warm, no edema iv site ok Lab Data: Na better at 146 sugars higher today Objective: Vital Signs Temp Pulse Resp BP Pulse Ox 37.2 C 101 H 16 124/77 H 92 06/03/17 14:05 06/03/17 14:05 06/03/17 14:05 06/03/17 14:05 06/03/17 14:05 Microbiology 05/28/17 22:16 Blood Culture - Final Blood 05/28/17 22:10 Blood Culture - Final Blood Laboratory Results 06/02/17 04:30 06/03/17 06:10 06/02/17 06/03/17 06/04/17 06:59 06:59 06:59 Intake Total 1357 937 Output Total 350 430 Balance 1007 507 PT 18.4 SEC (12.0-15.0) H 05/28/17 11:31 INR 1.53 (0.83-1.16) H 05/28/17 11:31 ICD10 Worksheet Patient Problems: Problems Problem Status Onset Acidosis Acute Hyperglycemia Acute Hyperkalemia Acute Unresponsive Acute
[2017-06-03] MEDS: INSULIN LISPRO 100 UNIT/ML SC SCH ×2 (17:49→21:23)
[2017-06-03 18:37] LABS: POTASSIUM 3.8 mEq/L (3.5-5.2)
[2017-06-03] MEDS ORDERED: OLANZapine DISINTEGR 5 MG TAB PO PRN (21:00)
[2017-06-03] MEDS: MELATONIN 3 MG TAB PO SCH (21:24)
[2017-06-03] MEDS: BENZONATATE 100 MG CAP PO PRN (22:51)
[2017-06-04] MEDS ORDERED: guaiFENesin/CODEINE PHOS 10 ML UDCUP PO PRN (00:31)
[2017-06-04] MEDS ORDERED: IPRATROPIUM/ALBUTEROL 3 ML DEYVIAL IH PRN (00:32)
[2017-06-04] MEDS ORDERED: guaiFENesin 600 MG TAB.ER PO SCH (00:45)
[2017-06-04 05:41] LABS: % IMMATURE GRANULYOCYTES 1.7 % (0.0-1.1); ABSOLUTE IMMATURE GRANULOCYTES 0.07 10^3/uL (0.00-0.10); ADD DIFF? NO; ADD MORPH? NO; ADD SCAN? NO; ATYPICAL LYMPHOCYTE FLAG 90 (0-99); FRAGMENT RBC FLAG 0 (0-99); LEFT SHIFT FLG 20 (0-99); LIPEMIA HEMOLYSIS FLAG 90 (0-99); MEAN CELL HEMOGLOBIN 33.8 pg (27.9-34.1); MEAN CELL HEMOGLOBIN CONCENTR. 34.6 g/dL (32.4-36.7); MEAN CELL VOLUME 97.7 fL (81.5-99.8); MEAN PLATELET VOLUME 11.2 fL (8.7-11.7); PLATELET CLUMPS FLAG 10 (0-99); PLATELET COUNT 137 10^3/uL (150-400); RED BLOOD CELL COUNT 2.66 10^6/uL (4.40-6.38); RED CELL DISTRIBUTION WIDTH 13.1 % (11.5-15.2)
[2017-06-04 05:55] LABS: ANION GAP 12 mEq/L (8-16); CALCIUM 7.3 mg/dL (8.5-10.4); CARBON DIOXIDE 18 mEq/l (22-31); CHLORIDE 117 mEq/L (97-110); CREATININE 0.7 mg/dL (0.7-1.3); GLOMERULAR FILTRATION RATE > 60; GLUCOSE 182 mg/dL (70-100); POTASSIUM 3.4 mEq/L (3.5-5.2); SODIUM 147 mEq/L (134-144)
[2017-06-04] MEDS: INSULIN LISPRO 100 UNIT/ML SC SCH ×3 (07:54→18:09)
[2017-06-04] MEDS ORDERED: POTASSIUM CL 10 MEQ TAB PO ONE ×2 (08:23→19:36)
[2017-06-04] MEDS: BENZONATATE 100 MG CAP PO PRN (08:43)
[2017-06-04] MEDS: LEVOTHYROXINE 88 MCG TAB PO SCH (08:43)
[2017-06-04] MEDS: guaiFENesin 600 MG TAB.ER PO SCH ×2 (08:44→21:55)
[2017-06-04] MEDS: INSULIN GLARGINE 100 UNITS/ML SYRINGE SC SCH (09:26)
--- NOTE | 2017-06-04 16:03 | HOSPPROG ---
Hospitalist Progress Note Assessment/Plan: DIAGNOSES: -acute encephalopathy with what sounds like chronic encephalopathy or possably a dementia, also with hx closed head injury # acute triggers include his diabetic hyperosmolar state with ketosis, and probably the hypernatremia and benzodiazepines and other medications he has received here are having a significant impact -diabetic ketoacidosis with profound hyper osmolar state, resolved -acute kidney injury -question of possible sepsis, question of possible pneumonia; signs of possible sepsis have resolved -acute hypoxemic respiratory failure, resolved -thrombocytopenia -chronic neurologic dysfunction with memory failure and other symptoms described by family; the etiology of this is undetermined with a broad differential diagnosis but he has a normal CT of the head; unable to formally assess during severe acute delirium I had a long discussion with his family and some friends today at the bedside. They do describe as we know of approximately 1/2 to 2 years of progressive neurologic dysfunction. I am able to determine from them that he is certainly significantly worse at this time today than he was 2 weeks ago before he became ill. However he has had trouble with speaking at times. Trouble understanding how to use implements, unable to log into his e-mail, but not so much difficulty with memory. There seems to be more for difficulty with comprehension as far as they can tell. He has fallen once and has some difficulty walking at times but they believe that this is due to loss of vision in 1 of his eyes for which she has seen Dr. Jaramillo. They confirmed that he has not so far had any evaluation for his progressive neurologic issues. At this time he is clearly improving and moving back toward his baseline but not there yet. He does not have the ability to care for himself and lives alone so will need to probably have him at fdc facility or other rehabilitation setting. I think that if he continues to improve that by tomorrow or the next day he will be able to lie still for an MRI of the brain. I will order a B12 level, TSH, RPR and will consider once he improved close enough to baseline having him see Neurology he was here or in the outpatient setting. PLANS: -will avoid using any benzodiazepines or other psychoactive medications; if necessary can use a newer generation antipsychotic to control behavior but will Continue to use other non medicinal measures 1st -continue following sugars, manage as indicated -DVT prophylaxis -will increase insulin at this time -at the moment due to ongoing delirium and impulsivity the patient will require 1 on 1 observation SUBJECTIVE: he feels better today, able to communicate better, and walk more easily today. He still requiring some assistance from physical therapy but went further in the hallway with less assistance. He is more relaxed today. OBJECTIVE Vitals reviewed: stable w no fever Production Artist, my review: Exam: alert talkative, Today he is much more relaxed and energetic looking at the same time. He actually is communicating much better. He still have some difficulty formulating sentences and some occasional word-finding issues but he is able to stay on topic and formulated the sentence better than yesterday and able to communicate much more effectively. He certainly is much better oriented today. The nurses have not noticed any hallucinations since 2 nights ago. No tremor skin warm dry color ok resps not labored lungs clear BSs heart regular abd soft nondistended nontender, bowel sounds present limbs warm, no edema iv site ok Lab Data: Na approximately the same today at 147 sugars better today Objective: Vital Signs Temp Pulse Resp BP Pulse Ox 37.4 C 76 16 136/77 H 89 L 06/04/17 07:35 06/04/17 07:35 06/04/17 07:35 06/04/17 07:35 06/04/17 07:35 Laboratory Results 06/04/17 04:30 06/04/17 04:30 06/03/17 06/04/17 06/05/17 06:59 06:59 06:59 Intake Total 937 250 Output Total 430 275 375 Balance 507 -25 -375 PT 18.4 SEC (12.0-15.0) H 05/28/17 11:31 INR 1.53 (0.83-1.16) H 05/28/17 11:31 ICD10 Worksheet Patient Problems: Problems Problem Status Onset Acidosis Acute Hyperglycemia Acute Hyperkalemia Acute Unresponsive Acute
[2017-06-04 18:22] LABS: POTASSIUM 3.4 mEq/L (3.5-5.2)
[2017-06-04] MEDS: MELATONIN 3 MG TAB PO SCH (21:55)
[2017-06-04] MEDS ORDERED: POTASSIUM CL 10 MEQ TAB ONE (21:58)
[2017-06-05] MEDS: LEVOTHYROXINE 100 MCG TAB PO SCH (06:14)
[2017-06-05 06:59] LABS: ANION GAP 10 mEq/L (8-16); CALCIUM 7.8 mg/dL (8.5-10.4); CARBON DIOXIDE 19 mEq/l (22-31); CHLORIDE 112 mEq/L (97-110); CREATININE 0.7 mg/dL (0.7-1.3); GLOMERULAR FILTRATION RATE > 60; GLUCOSE 270 mg/dL (70-100); POTASSIUM 4.4 mEq/L (3.5-5.2); SODIUM 141 mEq/L (134-144)
[2017-06-05] MEDS: INSULIN GLARGINE 100 UNITS/ML SYRINGE SC SCH (09:09)
[2017-06-05] MEDS: INSULIN LISPRO 100 UNIT/ML SC SCH ×4 (09:10→17:43)
[2017-06-05] MEDS: guaiFENesin 600 MG TAB.ER PO SCH ×2 (09:10→21:47)
[2017-06-05] MEDS ORDERED: LORazepam 1 MG TAB PO ONE (13:29)
--- NOTE | 2017-06-05 13:54 | HOSPPROG ---
Hospitalist Progress Note Assessment/Plan: This patient with insulin dependent diabetes living alone, with undiagnosed progressive cognitive decline for a year or two, comes in comatose with DKA and glucose >1300. DKA has been treated and he is recovering from severe encephalopathy, revealing underlying undiagnosed neurologic sxs. DIAGNOSES: -acute encephalopathy with what sounds like chronic encephalopathy or possably a dementia, also with hx closed head injury # acute triggers include his diabetic hyperosmolar state with ketosis, and probably the hypernatremia and benzodiazepines and other medications he has received here are having a significant impact -diabetic ketoacidosis with profound hyper osmolar state, resolved -acute kidney injury -question of possible sepsis, question of possible pneumonia; signs of possible sepsis have resolved -acute hypoxemic respiratory failure, resolved -thrombocytopenia -chronic neurologic dysfunction with memory failure and other symptoms described by family; the etiology of this is undetermined with a broad differential diagnosis but he has a normal CT of the head; unable to formally assess during severe acute delirium I had a long discussion with his family and some friends. They do describe approximately 1/2 to 2 years of progressive neurologic dysfunction. He has clearly been worse here in setting of acute illness than recent baseline. However he progressively/chronically has had trouble with speaking at times, rouble understanding how to use implements, unable to log into his e-mail, and trouble with a number of other cognitive tasks, but not so much difficulty with memory. There seems to be progressive difficulty with comprehension as far as they can tell. He has fallen once and has some difficulty walking at times but they believe that this is due to loss of vision in 1 of his eyes for which she has seen Dr. Jaramillo. They confirmed that he has not so far had any evaluation for his progressive neurologic issues. At this time he is clearly improving and moving back toward his baseline but not there yet. He does not have the ability to care for himself and lives alone , though at current rate of improvement he may be able to get by at home with some help in near future. May need SNF at [place]. He has now improved with delirium to point I think he can lie still for MRI so is orderd. I will order a B12 level and RPR. TSH is boderline high on replacement therapy so I have increased synthroid dose, but I doubt that will make significant difference. As far as his DKA and diabetes control, he had been using a pump at home. He may not be able to manage the pump at home, and in fact may not be able to independently manage his sugars safely at all by himself, and this may be a villanueva factor in disposition. Likely needs snf for this alone unless family or machine bander and cellophaner helper can be with him to dose his insulin on regular schedule. PLANS: -is no longer needing sitter -will avoid using any benzodiazepines or other psychoactive medications -MRI brain ordered, ? frontal lobe lesion or other pathology -RPR pending -continue current higher dose of synthroid and recheck TSH 6 weeks -continue following sugars, manage as indicated - at present will need higher doses -DVT prophylaxis SUBJECTIVE: no specific bothersome symptoms no pain Eating well, ambulating a little better again OBJECTIVE Vitals reviewed: stable w no fever Exam: again today there is improvement in his alertness, and in his neurologic function. He is today speaking significantly more fluently with less word- finding difficulty and with better ability to create sentence structure. He is clearly very normally oriented and not confused at this time. Looks very energetic today skin warm dry color ok resps not labored lungs clear BSs heart regular abd soft nondistended nontender, bowel sounds present limbs warm, no edema iv site ok Lab Data: Na improved today at 141 sugars higher today Objective: Vital Signs Temp Pulse Resp BP Pulse Ox 37 C 87 18 127/70 H 90 L 06/05/17 07:57 06/05/17 07:57 06/05/17 07:57 06/05/17 07:57 06/05/17 07:57 Laboratory Results 06/04/17 04:30 06/05/17 06:20 06/04/17 06/05/17 06/06/17 06:59 06:59 06:59 Intake Total 250 500 Output Total 275 375 Balance -25 125 PT 18.4 SEC (12.0-15.0) H 05/28/17 11:31 INR 1.53 (0.83-1.16) H 05/28/17 11:31 ICD10 Worksheet Patient Problems: Problems Problem Status Onset Acidosis Acute Hyperglycemia Acute Hyperkalemia Acute Unresponsive Acute
[2017-06-05 19:56] LABS: POTASSIUM 3.9 mEq/L (3.5-5.2)
[2017-06-05] MEDS ORDERED: POTASSIUM CL 10 MEQ TAB PO ONE (21:38)
[2017-06-05] MEDS ORDERED: POTASSIUM CL 10 MEQ TAB ONE (21:44)
[2017-06-05] MEDS: MELATONIN 3 MG TAB PO SCH (21:47)
[2017-06-06] MEDS: LEVOTHYROXINE 100 MCG TAB PO SCH (05:13)
[2017-06-06 05:50] LABS: ANION GAP 17 mEq/L (8-16); CALCIUM 8.1 mg/dL (8.5-10.4); CARBON DIOXIDE 14 mEq/l (22-31); CHLORIDE 110 mEq/L (97-110); CREATININE 0.7 mg/dL (0.7-1.3); GLOMERULAR FILTRATION RATE > 60; GLUCOSE 304 mg/dL (70-100); POTASSIUM 4.5 mEq/L (3.5-5.2); SODIUM 141 mEq/L (134-144)
[2017-06-06] MEDS ORDERED: GADOBUTROL 10 ML VIAL IVP ONE (07:21)
[2017-06-06] MEDS: INSULIN LISPRO 100 UNIT/ML SC SCH ×6 (08:23→18:16)
[2017-06-06 08:38] LABS: GLUCOSE 392 mg/dL (70-100)
[2017-06-06] MEDS: INSULIN GLARGINE 100 UNITS/ML SYRINGE SC SCH (09:06)
[2017-06-06] MEDS: guaiFENesin 600 MG TAB.ER PO SCH ×2 (09:07→22:37)
--- NOTE | 2017-06-06 18:06 | HOSPPROG ---
Hospitalist Progress Note Assessment/Plan: * DKA - resolved * DM 1 - poor control due to cognitive issues -stop insulin pump as patient unable to manage -titrate subQ insulin * Metabolic encephalopathy, query anoxic encephalopathy -MRI brain negative * Possible dementia * ARF - resolved * Wide complex tachycardia due to hyperkalemia s/p shock x 3 * Acute respiratory failure - s/p extubation * Hypovolemic shock Subjective: still very confused and unable to attend to higher level cognitive tasks Objective: Vital Signs Temp Pulse Resp BP Pulse Ox 36.6 C 90 18 132/80 H 95 06/06/17 15:15 06/06/17 15:15 06/06/17 15:15 06/06/17 15:15 06/06/17 15:15 Laboratory Results 06/04/17 04:30 06/06/17 08:20 06/05/17 06/06/17 06/07/17 05:59 05:59 05:59 Intake Total 500 640 Output Total 375 Balance 125 640 PT 18.4 SEC (12.0-15.0) H 05/28/17 11:31 INR 1.53 (0.83-1.16) H 05/28/17 11:31 Brain MRI - negative CXR viewed, my personal interpretation is - possible LLL infiltrate - Physical Exam Constitutional: no apparent distress, appears nourished, not in pain Cardiovascular: regular rate and rhythym, no murmur, rub, or gallop Respiratory: no respiratory distress, no rales or rhonchi, clear to auscultation Gastrointestinal: normoactive bowel sounds, soft, non-tender abdomen, no palpable masses Skin: no rashes or abrasions, no fluctuance, no induration Neurologic: No AAOx3 Psychiatric: encephalopathic, poor insight, poor judgement, poor memory, No interacting appropriately, No thought process linear ICD10 Worksheet Patient Problems: Problems Problem Status Onset Acidosis Acute Hyperglycemia Acute Hyperkalemia Acute Unresponsive Acute
[2017-06-06 19:57] LABS: POTASSIUM 3.6 mEq/L (3.5-5.2)
[2017-06-06] MEDS: MELATONIN 3 MG TAB PO SCH (22:37)
[2017-06-07 00:27] VITALS: RESP 15
[2017-06-07] MEDS ORDERED: POTASSIUM CL 20 MEQ TAB PO ONE (01:17)
[2017-06-07] MEDS: LEVOTHYROXINE 100 MCG TAB PO SCH (05:05)
[2017-06-07 05:32] LABS: POTASSIUM 4.3 mEq/L (3.5-5.2)
[2017-06-07 07:35] VITALS: BP 131/75; PULSE 68; TEMP 97.9; O2SAT 90
[2017-06-07] MEDS: ERGOCALCIFEROL 50,000 I.UNIT CAP PO SCH (08:39)
[2017-06-07] MEDS: INSULIN LISPRO 100 UNIT/ML SC SCH ×4 (08:39→13:10)
[2017-06-07] MEDS: INSULIN GLARGINE 100 UNITS/ML SYRINGE SC SCH (08:39)
[2017-06-07] MEDS: guaiFENesin 600 MG TAB.ER PO SCH (08:39)
[2017-06-07] MEDS ORDERED: PRAVASTATIN SODIUM 20 MG TAB PO SCH (09:00)
[2017-06-07] MEDS ORDERED: VALSARTAN 40 MG TAB PO SCH (09:30)
[2017-06-07] MEDS ORDERED: NON-FORMULARY NEW DRUG (Simvastatin [Zocor] 10 MG) PO SCH (09:30)
[2017-06-07] MEDS ORDERED: PANTOPRAZOLE SODIUM 40 MG TAB PO SCH (09:30)
--- NOTE | 2017-06-07 09:41 | PDIAF ---
- Diagnosis Diagnosis: DKA with shock, possible anoxic encephalopathy Code Status: Full Code - Medication Management Discharge Medications: Medications to Continue on Transfer Ergocalciferol [Vitamin D2 (*)] 50,000 unit PO .TWICE WEEKLY 05/28/17 [Last Taken Unknown] Pantoprazole Sodium [Protonix 40mg (*)] 40 mg PO DAILY 05/28/17 [Last Taken Unknown] SIMVASTATIN [Zocor] 10 mg PO DAILY 05/28/17 [Last Taken Unknown] Herbals/Supplements -Info Only 1 ea PO DAILY 06/01/17 [Last Taken Unknown] Insulin Glargine [Lantus 100 UNITS/ML (*)] 16 units SC DAILY #1 ml 06/07/17 [ Last Taken Unknown] Insulin Lispro [humALOG LISPRO 100 units/ml (*)] 2 unit SC TIDMEAL #1 unit 06/07 [Last Taken Unknown] Levothyroxine [Synthroid 100 mcg (*)] 100 mcg PO DAILY AT 6AM #30 tab 06/07/17 [ Last Taken Unknown] Valsartan [Diovan (*)] 40 mg PO DAILY #30 tab 06/07/17 [Last Taken Unknown] Discharge Medications: Refer to the Discharge Home Medication list for PRN reason. - Orders Services needed: Physical Therapy, Occupational Therapy, Speech Language Pathologist Diet Recommendation: ADA 2000 consistent carb Diet Texture: Dysphagia 3 - Advanced - Moist, Bite-Size, [place] Thick Liquids, Meds Whole in Puree Additional: FSBG QAC and HS with ongoing insulin titration. Insulin pump off until patient's cognition improved so he may self manage. - Follow Up Care Current Providers and Referrals: Patient,NotPresent [Primary Care Provider] - As per Instructions
--- NOTE | 2017-06-08 04:23 | GDS ---
[f rep st] DISCHARGE SUMMARY DISCHARGE DIAGNOSES: 1. Diabetic ketoacidosis. 2. Diabetes type 1, with poor control due to cognitive issues. 3. Metabolic encephalopathy, query anoxic encephalopathy. 4. Possible dementia. 5. Acute renal failure, resolved. 6. Wide-complex tachycardia, due to hyperkalemia status post shock x3. 7. Hypovolemic shock. 8. Acute respiratory failure, requiring intubation. HISTORY: Moris Jacob is a 56-year-old type 1 diabetic who is on an insulin pump. Family had note d cognitive issues over the past 1-2 years leading to poor diabetes control. He presented, after be ing found down, in severe DKA. He had severe hyperkalemia, with a wide-complex tachycardia requirin g a shock. He was hypotensive, in hypovolemic shock, and acute respiratory failure requiring intuba tion. Eventually, once his DKA resolved, his metabolic issues resolved, and he stabilized. Mental status continued to be a severe problem throughout the remainder of his hospitalization. MRI of his brain is negative. Given his severity of presentation, however, I suspect he may have anoxic encep halopathy superimposed on his underlying more chronic cognitive issues. Given his inability to lucita ge his insulin pump, he was transitioned to subcu long-acting insulin to be titrated on an ongoing b asis at the rehab. Once his cognitive status allows, could consider returning to an insulin pump. DISCHARGE MEDICATIONS: Please see computerized record for full detailed list. New medications: 1. Lantus 16 units subcu daily. 2. Lispro insulin t.i.d. with meals. 3. Synthroid 100 mcg p.o. daily. 4. Diovan decreased to 40 mg p.o. daily. Changed medications: We reduced his blood pressure medications due to ongoing relative low blood pr essure throughout this hospitalization. 1. Verapamil 240 mg p.o. daily, discontinued. 2. Hydrochlorothiazide 25 mg p.o. daily, discontinued. 3. Valsartan dose was reduced. 4. Synthroid dose was increased. DISCHARGE INSTRUCTIONS: Additional discharge instructions: 1. PT, OT, and speech therapy at [facility]. 2. Dysphagia 3 diet, with nectar thick liquids. 3. Fingerstick blood glucoses every a.c. and h.s., with ongoing insulin titration. Insulin pump to remain off until patient's cognition improves so he may self-manage. Greater than 30 minutes' time was spent arranging this discharge. Patient was seen and examined by me on the day of discharge. /[id number]/MODL
== END 2017-06-07 15:45 | DRG 637 ==
LOC: EDUNIT# → F2N 13:19 → F3N 06-03 13:40
PROVIDERS: ADMIT Internal Medicine; ATTEND Internal Medicine
PROC: 5A2204Z Restoration of Cardiac Rhythm, Single (ICD-10-PCS; principal; 2017-05-28)
PROC: 0BH17EZ Insertion of Endotracheal Airway into Trachea, Via Natural or Artificial Opening (ICD-10-PCS; principal; 2017-05-28)
PROC: 5A1945Z Respiratory Ventilation, 24-96 Consecutive Hours (ICD-10-PCS; principal; 2017-05-28)
PROC: 02HV43Z Insertion of Infusion Device into Superior Vena Cava, Percutaneous Endoscopic Approach (ICD-10-PCS; 2017-05-28)
DX: E10.11 Type 1 diabetes mellitus with ketoacidosis with coma (principal); G93.41 Metabolic encephalopathy; J96.01 Acute respiratory failure with hypoxia; A41.9 Sepsis, unspecified organism; R65.21 Severe sepsis with septic shock; J69.0 Pneumonitis due to inhalation of food and vomit; N17.9 Acute kidney failure, unspecified; E87.5 Hyperkalemia; F03.90 Unspecified dementia, unspecified severity, without behavioral disturbance, psychotic disturbance, mood disturbance, and anxiety; G31.84 Mild cognitive impairment of uncertain or unknown etiology; D69.6 Thrombocytopenia, unspecified; G70.9 Myoneural disorder, unspecified; E03.9 Hypothyroidism, unspecified; I10 Essential (primary) hypertension; K21.9 Gastro-esophageal reflux disease without esophagitis; E78.5 Hyperlipidemia, unspecified; Z96.41 Presence of insulin pump (external) (internal); Z91.19 Patient's noncompliance with other medical treatment and regimen; Z79.4 Long term (current) use of insulin
CPT/HCPCS: 80305; 82607-90; 82947-QW; 86022-90; 92507-GN; 92523-GN; 92526-GN; 92610-GN; 96374; 97110-GP; 97112-GP; 97116-GP; 97162-GP; 97167-GO; 97530-GO; 97530-GP; 97535-GO; A9585; C1751; G0009; J0610; J1335; J1650; J1815; J2060; J2704; J2997; J3010; J3370; P9041

== ENCOUNTER 2017-10-04 17:56 | Inpatient (IN) | payer OTHER ==
[2017-10-04 18:31] LABS: % IMMATURE GRANULYOCYTES 0.3 % (0.0-1.1); ABSOLUTE IMMATURE GRANULOCYTES 0.02 10^3/uL (0.00-0.10); ADD DIFF? NO; ADD MORPH? NO; ADD SCAN? NO; ATYPICAL LYMPHOCYTE FLAG 0 (0-99); FRAGMENT RBC FLAG 0 (0-99); HEMATOCRIT 43.6 % (40.0-51.0); HEMOGLOBIN 14.7 g/dL (13.7-17.5); LEFT SHIFT FLG 0 (0-99); LIPEMIA HEMOLYSIS FLAG 80 (0-99); MEAN CELL HEMOGLOBIN 32.4 pg (27.9-34.1); MEAN CELL HEMOGLOBIN CONCENTR. 33.7 g/dL (32.4-36.7); MEAN PLATELET VOLUME 10.4 fL (8.7-11.7); PLATELET CLUMPS FLAG 0 (0-99); PLATELET COUNT 289 10^3/uL (150-400); RED BLOOD CELL COUNT 4.54 10^6/uL (4.40-6.38); RED CELL DISTRIBUTION WIDTH 12.9 % (11.5-15.2)
[2017-10-04 18:41] LABS: ANION GAP 14 mEq/L (8-16); CALCIUM 9.1 mg/dL (8.5-10.4); CARBON DIOXIDE 28 mEq/l (22-31); CHLORIDE 96 mEq/L (97-110); CREATININE 0.7 mg/dL (0.7-1.3); GLOMERULAR FILTRATION RATE > 60; GLUCOSE 82 mg/dL (70-100); POTASSIUM 3.8 mEq/L (3.5-5.2); SODIUM 138 mEq/L (134-144)
--- NOTE | 2017-10-04 18:51 | EDPHY ---
H & P Stated Complaint: BS 49 Time Seen by Provider: 10/04/17 18:20 HPI/ROS: CHIEF COMPLAINT: Insulin reaction, unable to care for self at home HISTORY OF PRESENT ILLNESS: The patient is brought to the emergency department with altered mental status secondary to hypoglycemia. The patient has a history of diabetes and baseline cognitive dysfunction. The patient had been hospitalized here [facility] in May for diabetic ketoacidosis. He was transition to [facility] and ultimately discharged home with home care. The patient reportedly has a home care nurse that comes 1 to 2 times a day during the week day only. The patient reportedly self manages his diabetes on the weekends. Tonight, the patient was noted to be altered and hypoglycemic which prompted the visit to the emergency department. The patient's home care nurse reportedly does not feel that the patient is appropriate to be at home and that he requires greater nursing care that she can provide. The patient currently denies any acute medical complaints. He specifically denies fever, pain, vomiting or additional complaints. REVIEW OF SYSTEMS: A comprehensive 10 point review of systems is otherwise negative aside from elements mentioned in the history of present illness. Source: Patient Exam Limitations: No limitations - Personal History Current Tetanus/Diphtheria Vaccine: Unsure - Medical/Surgical History Hx Asthma: Yes Hx Chronic Respiratory Disease: No Hx Diabetes: No Hx Cardiac Disease: No Hx Renal Disease: No Hx Cirrhosis: No Hx Alcoholism: No Hx HIV/AIDS: No Hx Splenectomy or Spleen Trauma: No Other PMH: Cognitive dysfunction, diabetes - Social History Smoking Status: Never smoked - Physical Exam Exam: General Appearance: Alert, no distress Eyes: Pupils equal and round no pallor or injection ENT, Mouth: Mucous membranes moist Respiratory: There are no retractions, lungs are clear to auscultation Cardiovascular: Regular rate and rhythm Gastrointestinal: Abdomen is soft and nontender, no masses, bowel sounds normal Neurological: A&O, normal motor function, normal sensory exam, normal cranial nerves Skin: Warm and dry, no rashes Musculoskeletal: Neck is supple nontender Extremities: symmetrical, full range of motion Constitutional: Initial Vital Signs Temperature (C) 36.8 C 10/04/17 18:22 Heart Rate 86 10/04/17 18:22 Respiratory Rate 18 10/04/17 18:22 Blood Pressure 157/89 H 10/04/17 18:22 O2 Sat (%) 97 10/04/17 18:22 O2 Delivery Mode Room Air Allergies/Adverse Reactions: No Known Allergies Allergy (Unverified 05/28/17 22:35) Home Medications: Medication Instructions Recorded Pantoprazole Sodium [Protonix 40mg 40 mg PO DAILY 05/28/17 (*)] Insulin Glargine [Lantus 100 25 units SC HS 10/04/17 UNITS/ML (*)] Insulin Lispro [humALOG LISPRO 100 15 unit SC DAILY@12 10/04/17 units/ml (*)] Insulin Lispro [humALOG LISPRO 100 16 unit SC DAILY@18 10/04/17 units/ml (*)] Insulin NPH Human [humULIN N 100 40 units SC DAILY 10/04/17 UNITS/ML (*)] Levothyroxine [Synthroid 88 mcg 88 mcg PO DAILY06 10/04/17 (*)] Medical Decision Making ED Course/Re-evaluation: The patient presents to the ED after an insulin reaction. The patient had a blood sugar 46 which has been corrected. The patient was given a meal in the emergency department. He clearly has poor insight into the management of his underlying diabetes. The patient's home care nurse reportedly is unwilling to continue to care for the patient. He was sent to the emergency department to be evaluated for readmission to a custodial. In the emergency department, the patient is otherwise without acute complaints and in no acute distress. The patient will be admitted to the hospitalist service for observation this evening. He presents after an episode of corrected hypoglycemia. He has no evidence of hyperglycemia, metabolic derangement or significant vital sign abnormality. Differential Diagnosis: Differential diagnosis considered includes insulin reaction, metabolic abnormality, renal failure, dehydration - Data Points Laboratory Results: Laboratory Results 10/04/17 15:30 10/04/17 15:30 10/04/17 10/04/17 15:30 15:30 WBC 5.73 10^3/uL 10^3/uL (3.80-9.50) RBC 4.54 10^6/uL 10^6/uL (4.40-6.38) Hgb 14.7 g/dL g/dL (13.7-17.5) Hct 43.6 % % (40.0-51.0) MCV 96.0 fL fL (81.5-99.8) MCH 32.4 pg pg (27.9-34.1) MCHC 33.7 g/dL g/dL (32.4-36.7) RDW 12.9 % % (11.5-15.2) Plt Count 289 10^3/uL 10^3/uL (150-400) MPV 10.4 fL fL (8.7-11.7) Neut % (Auto) 57.2 % % (39.3-74.2) Lymph % (Auto) 26.5 % % (15.0-45.0) Payne % (Auto) 11.2 % % (4.5-13.0) Eos % (Auto) 3.8 % % (0.6-7.6) Baso % (Auto) 1.0 % % (0.3-1.7) Nucleat RBC Rel Count 0.0 % % (0.0-0.2) Absolute Neuts (auto) 3.27 10^3/uL 10^3/uL (1.70-6.50) Absolute Lymphs (auto) 1.52 10^3/uL 10^3/uL (1.00-3.00) Absolute Monos (auto) 0.64 10^3/uL 10^3/uL (0.30-0.80) Absolute Eos (auto) 0.22 10^3/uL 10^3/uL (0.03-0.40) Absolute Basos (auto) 0.06 10^3/uL 10^3/uL (0.02-0.10) Absolute Nucleated RBC 0.00 10^3/uL 10^3/uL (0-0.01) Immature Gran % 0.3 % % (0.0-1.1) Immature Gran # 0.02 10^3/uL 10^3/uL (0.00-0.10) Sodium 138 mEq/L mEq/L (134-144) Potassium 3.8 mEq/L mEq/L (3.5-5.2) Chloride 96 mEq/L L mEq/L (97-110) Carbon Dioxide 28 mEq/l mEq/l (22-31) Anion Gap 14 mEq/L mEq/L (8-16) BUN 27 mg/dL H mg/dL (7-23) Creatinine 0.7 mg/dL mg/dL (0.7-1.3) Estimated GFR > 60 Glucose 82 mg/dL mg/dL (70-100) Calcium 9.1 mg/dL mg/dL (8.5-10.4) Departure - Departure Disposition: [facility] Acute Clinical Impression: Insulin reaction, Cognitive dysfunction Condition: Good
[2017-10-04] MEDS ORDERED: ONDANSETRON DISINTEGRATING 4 MG TAB PO PRN (19:36)
[2017-10-04] MEDS ORDERED: ACETAMINOPHEN 325 MG TAB PO PRN (19:36)
[2017-10-04] MEDS ORDERED: ONDANSETRON 4 MG/2 ML VIAL IVP PRN (19:36)
[2017-10-04] MEDS ORDERED: D50W 25 GM/50 ML SYR IVP PRN (21:23)
--- NOTE | 2017-10-04 21:24 | PDGENHP ---
History and Physical - Chief Complaint Acute confusion - History of Present Illness PCP: Dr. Venessa Helms HPI: 56 yo M p/w acute confusion characterized as difficulty describing what he is doing at home. Emergency services were reportedly activated by his home care nurse, who believes that the patient is not safe to manage his daily affairs at home. He was noted by EMS to have a glucose 46, and was treated in the field. Patient has insight into his confusion, and believes that its onset was when he experienced a past hospitalization at [facility] in May 2017. Duration has been persistent thereafter. He was reportedly discharged to [facility] after that hospitalization, and was transitioned home w/ a 5 day/week home based assistant. The patient reports that his relationship w/ the RN is excellent, and that she is very helpful to him. He reports that he has some associated difficulty managing his meds and himself on the weekends when she is not available. History Information - Allergies/Home Medication List Allergies/Adverse Reactions: No Known Allergies Allergy (Unverified 05/28/17 22:35) Home Medications: Pantoprazole Sodium [Protonix 40mg (*)] 40 mg PO DAILY 05/28/17 [Last Taken 06/13] Insulin Glargine [Lantus 100 UNITS/ML (*)] 25 units SC HS 10/04/17 [Last Taken 10/03/17] Insulin Lispro [humALOG LISPRO 100 units/ml (*)] 15 unit SC DAILY@12 10/04/17 [ Last Taken 10/04/17] Insulin Lispro [humALOG LISPRO 100 units/ml (*)] 16 unit SC DAILY@18 10/04/17 [ Last Taken Unknown] Insulin NPH Human [humULIN N 100 UNITS/ML (*)] 40 units SC DAILY 10/04/17 [Last Taken 10/04/17] Levothyroxine [Synthroid 88 mcg (*)] 88 mcg PO DAILY06 10/04/17 [Last Taken 06/13] I have personally reviewed and updated: family history, medical history, social history, surgical history - Past Medical History diabetes type 1, hypertension Additional medical history: Hypothyroidism. Dementia vs. anoxic brain injury - Surgical History Reports: no pertinent surgical hx - Family History Additional family history: Mother w/ cognitive impairment, no early-onset dementia - Social History Smoking Status: Never smoked Alcohol Use: None Drug Use: None Additional social history: lives alone, home based assistant Review of Systems Review of Systems: ROS: 10pt was reviewed & negative except for what was stated in HPI & below Constitutional: Reports: no symptoms Neurological: Reports: other (confusion) Physical Exam Physical Exam: Temp Pulse Resp BP Pulse Ox 36.8 C 90 16 146/95 H 94 10/04/17 19:53 10/04/17 19:53 10/04/17 19:53 10/04/17 19:53 10/04/17 19:53 Constitutional: no apparent distress, appears nourished, not in pain Eyes: PERRL, anicteric sclera, EOMI Ears, Nose, Mouth, Throat: moist mucous membranes, hearing normal, ears appear normal, no oral mucosal ulcers Cardiovascular: regular rate and rhythym, no murmur, rub, or gallop, No edema Respiratory: no respiratory distress, no rales or rhonchi, clear to auscultation Gastrointestinal: normoactive bowel sounds, soft, non-tender abdomen, no palpable masses Skin: warm, normal color, no rashes or abrasions, no fluctuance, no induration, No mottled Neurologic: sensation intact bilaterally, other (AAOx2 (person and place)), No weakness, No facial droop Psychiatric: interacting appropriately, anxious, poor judgement, poor memory, other (cooperative and follows commands, concentration 0/7), No agitated Lab Data & Imaging Review 10/04/17 15:30 10/04/17 15:30 WBC 5.73 10^3/uL (3.80-9.50) 10/04/17 15:30 RBC 4.54 10^6/uL (4.40-6.38) 10/04/17 15:30 Hgb 14.7 g/dL (13.7-17.5) 10/04/17 15:30 Hct 43.6 % (40.0-51.0) 10/04/17 15:30 MCV 96.0 fL (81.5-99.8) 10/04/17 15:30 MCH 32.4 pg (27.9-34.1) 10/04/17 15:30 MCHC 33.7 g/dL (32.4-36.7) 10/04/17 15:30 RDW 12.9 % (11.5-15.2) 10/04/17 15:30 Plt Count 289 10^3/uL (150-400) 10/04/17 15:30 MPV 10.4 fL (8.7-11.7) 10/04/17 15:30 Neut % (Auto) 57.2 % (39.3-74.2) 10/04/17 15:30 Lymph % (Auto) 26.5 % (15.0-45.0) 10/04/17 15:30 Pender % (Auto) 11.2 % (4.5-13.0) 10/04/17 15:30 Eos % (Auto) 3.8 % (0.6-7.6) 10/04/17 15:30 Baso % (Auto) 1.0 % (0.3-1.7) 10/04/17 15:30 Nucleat RBC Rel Count 0.0 % (0.0-0.2) 10/04/17 15:30 Absolute Neuts (auto) 3.27 10^3/uL (1.70-6.50) 10/04/17 15:30 Absolute Lymphs (auto) 1.52 10^3/uL (1.00-3.00) 10/04/17 15:30 Absolute Monos (auto) 0.64 10^3/uL (0.30-0.80) 10/04/17 15:30 Absolute Eos (auto) 0.22 10^3/uL (0.03-0.40) 10/04/17 15:30 Absolute Basos (auto) 0.06 10^3/uL (0.02-0.10) 10/04/17 15:30 Absolute Nucleated RBC 0.00 10^3/uL (0-0.01) 10/04/17 15:30 Immature Gran % 0.3 % (0.0-1.1) 10/04/17 15:30 Immature Gran # 0.02 10^3/uL (0.00-0.10) 10/04/17 15:30 Sodium 138 mEq/L (134-144) 10/04/17 15:30 Potassium 3.8 mEq/L (3.5-5.2) 10/04/17 15:30 Chloride 96 mEq/L (97-110) L 10/04/17 15:30 Carbon Dioxide 28 mEq/l (22-31) 10/04/17 15:30 Anion Gap 14 mEq/L (8-16) 10/04/17 15:30 BUN 27 mg/dL (7-23) H 10/04/17 15:30 Creatinine 0.7 mg/dL (0.7-1.3) 10/04/17 15:30 Estimated GFR > 60 10/04/17 15:30 Glucose 82 mg/dL (70-100) 10/04/17 15:30 Calcium 9.1 mg/dL (8.5-10.4) 10/04/17 15:30 Assessment & Plan Assessment: 56 yo M p/w acute on chronic encephalopathy in setting of hypoglycemia Plan: # Encephalopathy. Acute on chronic, evidenced by global brain dysfunction characterized as recent increase in confusion from his baseline, due to metabolic effects of hypoglycemia - improved back to baseline w/ improvement in gluc level - cont to monitor, currently no agitation - per home based assistant, patient unsafe at home, and likely needs long-term care or 24/ care at home - patient wants to go home, so we will have to evaluate needs w/ Cog therapy/OT/ PT/CM in AM, and reconcile findings w/ patient and his MDPOA (brother Vinnie Jacob ) - there had been a suspicion of dementia developing over past 1-2 years, and hospitalization may have exacerbated w/ anoxic injury # Hypoglycemia. Acute, likely 2/2 unintentional overtreatment w/ home insulin - normalized, cont on d5 1/2 NS tonight # DM1. Cont lantus, DC NPH as this may increase risk of hypoglycemia, place on ISS to gauge needs # HTN. Chronic, reviewed outside records including 06/[address] Rajani Millard, reports patient's home anti-HTN Rx stopped, Valsartan continued, must have been DC'd as outpt - cont to monitor Diet. ADA PPx. Mod risk, lovenox 40 Code. Full Dispo. ADD 10/05, pending therapy evals and case mgmt assistance. Discussed w/ Dr. Amandeep Bagley, he reports to me that home based assistant believes patient not safe at home.
[2017-10-04] MEDS: D5W 1/2 NS W/ 20 KCl/L 1,000 ML IV SCH (22:09)
[2017-10-04] MEDS ORDERED: D50W 25 GM/50 ML VIAL ONE (23:21)
[2017-10-04] MEDS ORDERED: D50W 25 GM/50 ML VIAL IV ONE (23:30)
[2017-10-04 23:53] LABS: GLUCOSE 42 mg/dL (70-100)
[2017-10-05 04:34] LABS: ADD DIFF? NO; ADD MORPH? NO; ADD SCAN? NO; ATYPICAL LYMPHOCYTE FLAG 0 (0-99); FRAGMENT RBC FLAG 0 (0-99); HEMATOCRIT 35.8 % (40.0-51.0); HEMOGLOBIN 12.8 g/dL (13.7-17.5); LEFT SHIFT FLG 0 (0-99); LIPEMIA HEMOLYSIS FLAG 90 (0-99); MEAN CELL HEMOGLOBIN 33.5 pg (27.9-34.1); MEAN CELL HEMOGLOBIN CONCENTR. 35.8 g/dL (32.4-36.7); MEAN CELL VOLUME 93.7 fL (81.5-99.8); MEAN PLATELET VOLUME 10.2 fL (8.7-11.7); PLATELET CLUMPS FLAG 0 (0-99); PLATELET COUNT 225 10^3/uL (150-400); RED BLOOD CELL COUNT 3.82 10^6/uL (4.40-6.38); RED CELL DISTRIBUTION WIDTH 12.9 % (11.5-15.2)
[2017-10-05 04:47] LABS: ALANINE AMINOTRANSFERASE 34 IU/L (21-72); ALBUMIN 3.3 g/dL (3.5-5.0); ALKALINE PHOSPHATASE 69 IU/L (38-126); ANION GAP 9 mEq/L (8-16); ASPARTATE AMINOTRANSFERASE 19 IU/L (17-59); BILIRUBIN,TOTAL 0.4 mg/dL (0.1-1.4); CALCIUM 8.5 mg/dL (8.5-10.4); CARBON DIOXIDE 25 mEq/l (22-31); CHLORIDE 104 mEq/L (97-110); CREATININE 0.6 mg/dL (0.7-1.3); GLOMERULAR FILTRATION RATE > 60; GLUCOSE 142 mg/dL (70-100); POTASSIUM 4.5 mEq/L (3.5-5.2); SODIUM 138 mEq/L (134-144); TOTAL PROTEIN 5.5 g/dL (6.3-8.2)
[2017-10-05] MEDS: LEVOTHYROXINE 88 MCG TAB PO SCH (06:28)
[2017-10-05] MEDS: D5W 1/2 NS W/ 20 KCl/L 1,000 ML IV SCH (07:43)
[2017-10-05] MEDS: INSULIN REGULAR HUMAN 100 UNIT/ML SC SCH ×4 (08:32→20:59)
[2017-10-05] MEDS: ENOXAPARIN 40 MG/0.4 ML SYR SC SCH (08:33)
[2017-10-05] MEDS: PANTOPRAZOLE SODIUM 40 MG TAB PO SCH (08:33)
--- NOTE | 2017-10-05 15:07 | HOSPPROG ---
Hospitalist Progress Note Assessment/Plan: 56 yo M p/w acute on chronic encephalopathy in setting of hypoglycemia Plan: # Encephalopathy. Acute on chronic, due to metabolic effects of hypoglycemia - improved back to baseline w/ improvement in gluc level - cont to monitor, currently no agitation - per funeral home associate, patient unsafe at home, and likely needs long-term care or 24/7 care at home - there had been a suspicion of dementia developing over past 1-2 years, and hospitalization may have exacerbated w/ anoxic injury - Check B12, Folate # Hypoglycemia. Acute, likely 2/2 unintentional overtreatment w/ home insulin - normalized - Stop d5 1/2 NS # DM1. Cont lantus, DC NPH as this may increase risk of hypoglycemia, place on ISS to gauge needs - A1C pending # HTN. Chronic, reviewed outside records including 06/[address] Rajani Millard, reports patient's home anti-HTN Rx stopped, Valsartan continued, must have been DC'd as outpt - cont to monitor # Hypothyroidism - Currently on Levothyroxine 88mcg. Unclear compliance continue at this dose for now. Diet. ADA PPx. Mod risk, lovenox 40 Code. Full Dispo. change to inpatient. Subjective: pleasantly confused. NO CP or SOB. NO N/V Objective: Vital Signs Temp Pulse Resp BP Pulse Ox 36.7 C 74 16 125/80 H 94 10/05/17 09:07 10/05/17 09:07 10/05/17 09:07 10/05/17 09:07 10/05/17 09:07 Laboratory Results 10/05/17 04:00 10/05/17 04:00 10/04/17 10/05/17 10/06/17 05:59 05:59 05:59 Intake Total 1240 Balance 1240 - Physical Exam Constitutional: no apparent distress Eyes: PERRL, EOMI Ears, Nose, Mouth, Throat: moist mucous membranes, hearing normal Cardiovascular: regular rate and rhythym, no murmur, rub, or gallop, No edema Respiratory: no respiratory distress, no rales or rhonchi, clear to auscultation Gastrointestinal: normoactive bowel sounds, soft, non-tender abdomen Genitourinary: no bladder fullness Skin: warm Musculoskeletal: full muscle strength Neurologic: AAOx3 Psychiatric: interacting appropriately, not anxious, not encephalopathic ICD10 Worksheet Patient Problems: Problems Problem Status Onset Cognitive dysfunction Acute Insulin reaction Acute Acidosis Acute Hyperglycemia Acute Hyperkalemia Acute Unresponsive Acute
--- NOTE | 2017-10-05 16:36 | PDMN ---
Medical Necessity Medical necessity: GRG systemic condition- persistent encephalopathy in pt with DM1, hypoglycemia( 42) / hyperglycemia( 318) , hx HTN, Hypothyroidism, inability to care for self at home safely
[2017-10-05 16:38] LABS: HEMOGLOBIN A1C 7.4 % (4.0-6.0)
--- NOTE | 2017-10-05 17:28 | ASMTCMCOM ---
CM Note CM Note Notes: Pt admitted w/acute confusion secondary to hypoglycemia . Per ED report, his HC RN, Kim reportedly does not feel he is safe to manage his diabetes in his home and requires more care than she and her agency can provide. Pt hospitalized in May of this year and DCd to [facility]. Spoke with pts brother, Vinnie, who is also his MDPOA ([phone]). Vinnie is concerned that pt is not able to care for himself at home but also does not have the insight to understand this. Pt has cognitive problems in addition to his diabetes. Vinnie states the cause of pts cognitive problems is unclear. Vinnie feels that pt would leave any facility he was placed in against his will unless it was locked. He states that pt gets angry when Vinnie or friends try to discuss their concerns. Vinnie did make an appt for pt with a neuro psychologist sometime in next few weeks. Currently pt has a HC RN 2 X day, 5 X week but he needs daily care. Vinnie stated that pt has been trying to sell his home which could free up funds for a possible asst living facility if pt would agree. Otherwise, pt does not have funds to hire [facility] home. Met with pt after conversation with Vinnie to see if he had any insight into his admission. Pt did not appear to understand the gravity if his situation. Did discuss with pt the possibility of moving into asst living after selling his home. He appeared to agree but this CM not sure he really comprehended. Vinnie had stated it was hard to sell pts home while he lived there so also discussed with pt the possibility of his going to [facility] again while his home was prepared for sale. It might be best to have conversation with pt while brother present in person or by phone to further discuss DC plans. CM will continue to follow. Date Signed: 10/05/2017 05:27 PM Electronically Signed By:Dasia Guzman LCSW
[2017-10-05] MEDS: INSULIN GLARGINE 100 UNITS/ML SYRINGE SC SCH (20:59)
[2017-10-05 21:16] LABS: GLUCOSE 362 mg/dL (70-100)
[2017-10-06] MEDS: LEVOTHYROXINE 88 MCG TAB PO SCH (05:07)
[2017-10-06 05:52] LABS: FOLATE SERUM 18.2 ng/mL (2.80 - >20.00)
[2017-10-06] MEDS: ENOXAPARIN 40 MG/0.4 ML SYR SC SCH (08:08)
[2017-10-06] MEDS: PANTOPRAZOLE SODIUM 40 MG TAB PO SCH (08:11)
[2017-10-06] MEDS: INSULIN REGULAR HUMAN 100 UNIT/ML SC SCH ×4 (08:19→21:40)
--- NOTE | 2017-10-06 10:25 | HOSPPROG ---
Hospitalist Progress Note Assessment/Plan: 56 yo M p/w acute on chronic encephalopathy in setting of hypoglycemia Plan: # Encephalopathy. Acute on chronic, due to metabolic effects of hypoglycemia - improved back to baseline w/ improvement in gluc level - cont to monitor, currently no agitation - per home health cna, patient unsafe at home, and likely needs long-term care or 24/7 care at home - there had been a suspicion of dementia developing over past 1-2 years, and hospitalization may have exacerbated w/ anoxic injury - B12 and Folate are OK # Hypoglycemia. Acute, likely 2/2 unintentional overtreatment w/ home insulin - normalized - Stop d5 1/2 NS # DM1. Cont lantus, DC NPH as this may increase risk of hypoglycemia, place on ISS to gauge needs - A1C is 7.4 # HTN. Chronic, reviewed outside records including 06/[address] Rajani Millard, reports patient's home anti-HTN Rx stopped, Valsartan continued, must have been DC'd as outpt - cont to monitor # Hypothyroidism - Currently on Levothyroxine 88mcg. Unclear compliance continue at this dose for now. Diet. ADA PPx. Mod risk, lovenox 40 Code. Full Dispo/plan. -cont inpatient -Glucose was elevated yesterday but likely due to d5. Cont on current regime per above. Avoid Hypoglycemia -As for his dementia/cognitive decline, he appears to have had a gradual decline until around May. There are some concerns about anoxic brain injury but MRI was negative in May. His brother is coordinating an evaluation with a Neuro Psych physician in the next few week. -He is not safe for discharge to home Subjective: No complaints. Somewhat confused. NO CP or SOB. NO N/V Objective: Vital Signs Temp Pulse Resp BP Pulse Ox 36.7 C 81 12 141/94 H 93 10/06/17 08:20 10/06/17 08:20 10/06/17 08:20 10/06/17 08:20 10/06/17 08:20 Laboratory Results 10/05/17 20:53 10/05/17 10/06/17 10/07/17 05:59 05:59 05:59 Intake Total 450 Balance 450 - Physical Exam Constitutional: no apparent distress Eyes: PERRL Ears, Nose, Mouth, Throat: moist mucous membranes, hearing normal, ears appear normal Cardiovascular: regular rate and rhythym, no murmur, rub, or gallop Respiratory: no respiratory distress, no rales or rhonchi Gastrointestinal: normoactive bowel sounds Skin: warm Neurologic: AAOx3 Psychiatric: interacting appropriately, not anxious, No thought process linear, No poor judgement, No poor memory ICD10 Worksheet Patient Problems: Problems Problem Status Onset Cognitive dysfunction Acute Insulin reaction Acute Acidosis Acute Hyperglycemia Acute Hyperkalemia Acute Unresponsive Acute
--- NOTE | 2017-10-06 16:08 | ASMTCMCOM ---
CM Note CM Note Notes: Met with patient, his brother Vinnie and Dr. Glaser. Discussed cognitive evaluation and concerns for patient safety and his need for better diabetes management. The patient expresses that he understands that he is being cared for. He asked for a list of places but he states he should "go look". I have made several referrals to facilities here in [place]. He has had a recent stay at [facility]. DC to SNF when medically cleared with plans to transition to assisted living situation. CM to follow. Date Signed: 10/06/2017 04:07 PM Electronically Signed By:Khushbu Reyna RN
[2017-10-06] MEDS: INSULIN GLARGINE 100 UNITS/ML SYRINGE SC SCH (21:43)
[2017-10-07] MEDS: LEVOTHYROXINE 88 MCG TAB PO SCH (05:23)
[2017-10-07] MEDS: ENOXAPARIN 40 MG/0.4 ML SYR SC SCH (08:19)
[2017-10-07] MEDS: PANTOPRAZOLE SODIUM 40 MG TAB PO SCH (08:19)
[2017-10-07] MEDS: INSULIN REGULAR HUMAN 100 UNIT/ML SC SCH ×4 (08:25→20:44)
--- NOTE | 2017-10-07 10:00 | HOSPPROG ---
Hospitalist Progress Note Assessment/Plan: 56 yo M p/w acute on chronic encephalopathy in setting of hypoglycemia Plan: # Encephalopathy. Acute on chronic, due to metabolic effects of hypoglycemia - improved back to baseline w/ improvement in gluc level - cont to monitor, currently no agitation - per homemaking rehabilitation consultant, patient unsafe at home, and likely needs long-term care or 24/7 care at home - there had been a suspicion of dementia developing over past 1-2 years, and hospitalization may have exacerbated w/ anoxic injury - B12 and Folate are OK # Hypoglycemia. Acute, likely 2/2 unintentional overtreatment w/ home insulin - normalized # DM1. Cont lantus, DC NPH as this may increase risk of hypoglycemia, place on ISS to gauge needs - A1C is 7.4 - Increase Lantus by 1 unit today. Overall, mostly controlled # HTN. Chronic, reviewed outside records including 06/[address] Rajani Millard, reports patient's home anti-HTN Rx stopped, Valsartan continued, must have been DC'd as outpt - cont to monitor # Hypothyroidism - Currently on Levothyroxine 88mcg. Unclear compliance continue at this dose for now. Diet. ADA PPx. Mod risk, lovenox 40 Code. Full Dispo/plan. -cont inpatient -medically ready for discharge pending placement Subjective: No o/n events. Awaiting placement Objective: Vital Signs Temp Pulse Resp BP Pulse Ox 36.7 C 95 18 114/90 H 97 10/07/17 07:51 10/07/17 07:51 10/07/17 07:51 10/07/17 07:51 10/07/17 07:51 Laboratory Results 10/05/17 20:53 10/06/17 10/07/17 10/08/17 05:59 05:59 05:59 Intake Total 450 650 240 Balance 450 650 240 - Physical Exam Constitutional: no apparent distress Eyes: PERRL Ears, Nose, Mouth, Throat: moist mucous membranes, hearing normal Cardiovascular: regular rate and rhythym, no murmur, rub, or gallop Respiratory: no respiratory distress, no rales or rhonchi, clear to auscultation Gastrointestinal: normoactive bowel sounds Skin: warm Psychiatric: interacting appropriately, poor insight, poor judgement, poor memory ICD10 Worksheet Patient Problems: Problems Problem Status Onset Cognitive dysfunction Acute Insulin reaction Acute Acidosis Acute Hyperglycemia Acute Hyperkalemia Acute Unresponsive Acute
--- NOTE | 2017-10-07 14:11 | ASMTCMCOM ---
CM Note CM Note Notes: Chart reviewed. Patient about ready fopr dc. Working with [facility] and authorization pending, Spoke with patients Brother Vinnie and had a long discussion regarding Corina cognitive decline and need for group home solutions to his living situation, He is currently investigating facilities [facility], The resources are limited by both financial considertion and the house selling. CM to follow. Date Signed: 10/07/2017 02:10 PM Electronically Signed By:Khushbu Reyna RN
--- NOTE | 2017-10-07 15:09 | PDIAF ---
- Diagnosis Diagnosis: encephalopathy. Requires SNF Code Status: Full Code - Medication Management Discharge Medications: Medications to Continue on Transfer Pantoprazole Sodium [Protonix 40mg (*)] 40 mg PO DAILY 05/28/17 [Last Taken 06/13] Levothyroxine [Synthroid 88 mcg (*)] 88 mcg PO DAILY06 10/04/17 [Last Taken 06/13] Insulin Glargine [Lantus 100 UNITS/ML (*)] 26 units SC HS #0 10/07/17 [Last Taken 10/03/17] Discharge Medications: Refer to the Discharge Home Medication list for PRN reason. - Orders Diet Recommendation: ADA 1800 consistent carb Diet Texture: Regular Texture Diet - Follow Up Care Current Providers and Referrals: Patient,NotPresent [Unknown] - As per Instructions
[2017-10-07] MEDS: INSULIN GLARGINE 100 UNITS/ML SYRINGE SC SCH (20:46)
[2017-10-08] MEDS: LEVOTHYROXINE 88 MCG TAB PO SCH (05:57)
[2017-10-08] MEDS: INSULIN REGULAR HUMAN 100 UNIT/ML SC SCH ×4 (07:58→22:26)
[2017-10-08] MEDS: PANTOPRAZOLE SODIUM 40 MG TAB PO SCH (08:04)
[2017-10-08] MEDS: ENOXAPARIN 40 MG/0.4 ML SYR SC SCH (08:04)
--- NOTE | 2017-10-08 12:11 | HOSPPROG ---
Hospitalist Progress Note Assessment/Plan: 56 yo M p/w acute on chronic encephalopathy in setting of hypoglycemia Plan: # Encephalopathy. Acute on chronic, due to metabolic effects of hypoglycemia - improved back to baseline w/ improvement in gluc level - cont to monitor, currently no agitation - per mobile home park manager, patient unsafe at home, and likely needs long-term care or 24/7 care at home - there had been a suspicion of dementia developing over past 1-2 years, and hospitalization may have exacerbated w/ anoxic injury - B12 and Folate are OK # Hypoglycemia. Acute, likely 2/2 unintentional overtreatment w/ home insulin - normalized # DM1. Cont lantus, DC NPH as this may increase risk of hypoglycemia, place on ISS to gauge needs - A1C is 7.4 - cont current lantus, adjust as needed # HTN. Chronic, reviewed outside records including 06/[address] Rajani Millard, reports patient's home anti-HTN Rx stopped, Valsartan continued, must have been DC'd as outpt - cont to monitor # Hypothyroidism - Currently on Levothyroxine 88mcg. Unclear compliance. continue at this dose for now. Diet. ADA PPx. Mod risk, lovenox 40 Code. Full Dispo/plan. -cont inpatient -medically ready for discharge pending placement. Hopefully soon. Subjective: No overnight events. No new complaints Objective: Vital Signs Temp Pulse Resp BP Pulse Ox 36.3 C 77 16 128/85 H 95 10/08/17 07:48 10/08/17 07:48 10/08/17 07:48 10/08/17 07:48 10/08/17 07:48 Laboratory Results 10/05/17 20:53 10/07/17 10/08/17 10/09/17 05:59 05:59 05:59 Intake Total 650 1090 400 Output Total 250 Balance 650 840 400 - Physical Exam Constitutional: no apparent distress Eyes: EOMI Ears, Nose, Mouth, Throat: hearing normal Respiratory: no respiratory distress Gastrointestinal: No distension Psychiatric: interacting appropriately, poor judgement, poor memory ICD10 Worksheet Patient Problems: Problems Problem Status Onset Cognitive dysfunction Acute Insulin reaction Acute Acidosis Acute Hyperglycemia Acute Hyperkalemia Acute Unresponsive Acute
[2017-10-08] MEDS: INSULIN GLARGINE 100 UNITS/ML SYRINGE SC SCH (20:16)
[2017-10-09] MEDS: LEVOTHYROXINE 88 MCG TAB PO SCH (05:23)
[2017-10-09] MEDS: INSULIN REGULAR HUMAN 100 UNIT/ML SC SCH ×4 (08:57→21:31)
[2017-10-09] MEDS: ENOXAPARIN 40 MG/0.4 ML SYR SC SCH (08:58)
[2017-10-09] MEDS: PANTOPRAZOLE SODIUM 40 MG TAB PO SCH (08:58)
--- NOTE | 2017-10-09 10:05 | HOSPPROG ---
Hospitalist Progress Note Assessment/Plan: 56 yo M p/w acute on chronic encephalopathy in setting of hypoglycemia. He has encephalopathy for unclear reasons. He has had an extensive w/u for this (see below). He has an appointment with Neuro Psych at the end of this month. Since arrival to the hospital he is no longer having hypoglycemic events. His cognition is back to baseline. He is felt to not be able to take care of himself at home and therefore is requiring a SNF. Approval for this is pending. Glucose has been slightly elevated and long acting insulin has been increased incrementally. # Encephalopathy. Acute on chronic, due to metabolic effects of hypoglycemia - improved back to baseline w/ improvement in gluc level - cont to monitor, currently no agitation - per home companion, patient unsafe at home, and likely needs long-term care or 24/7 care at home - there had been a suspicion of dementia developing over past 1-2 years, and hospitalization may have exacerbated w/ anoxic injury - B12 and Folate are OK # Hypoglycemia. Acute, likely 2/2 unintentional overtreatment w/ home insulin - normalized # DM1. Cont lantus, DC NPH as this may increase risk of hypoglycemia, place on ISS to gauge needs - A1C is 7.4 - Increase Lantus # HTN. Chronic, reviewed outside records including 06/[address] Rajani Millard, reports patient's home anti-HTN Rx stopped, Valsartan continued, must have been DC'd as outpt - cont to monitor # Hypothyroidism - Currently on Levothyroxine 88mcg. Unclear compliance. continue at this dose for now. Will need to repeat TSH in 6 weeks. Diet. ADA PPx. Mod risk, lovenox 40 Code. Full Dispo/plan. -cont inpatient -medically ready for discharge pending placement. Hopefully soon. Subjective: pt seen and examined. Doing well. No overnight events. Awaiting placement. Objective: Vital Signs Temp Pulse Resp BP Pulse Ox 36.4 C 75 18 127/81 H 97 10/09/17 07:40 10/09/17 07:40 10/09/17 07:40 10/09/17 07:40 10/09/17 07:40 Laboratory Results 10/05/17 20:53 10/08/17 10/09/17 10/10/17 05:59 05:59 05:59 Intake Total 1090 1275 Output Total 250 Balance 840 1275 - Physical Exam Constitutional: no apparent distress Eyes: PERRL Ears, Nose, Mouth, Throat: moist mucous membranes, hearing normal Cardiovascular: regular rate and rhythym, No edema Respiratory: no respiratory distress, no rales or rhonchi, clear to auscultation Gastrointestinal: normoactive bowel sounds, soft, non-tender abdomen Skin: warm Neurologic: AAOx3 Psychiatric: interacting appropriately, not anxious, not encephalopathic ICD10 Worksheet Patient Problems: Problems Problem Status Onset Cognitive dysfunction Acute Insulin reaction Acute Acidosis Acute Hyperglycemia Acute Hyperkalemia Acute Unresponsive Acute
[2017-10-09] MEDS: INSULIN GLARGINE 100 UNITS/ML SYRINGE SC SCH (20:27)
[2017-10-10] MEDS: LEVOTHYROXINE 88 MCG TAB PO SCH (05:59)
[2017-10-10] MEDS: PANTOPRAZOLE SODIUM 40 MG TAB PO SCH (08:26)
[2017-10-10] MEDS: INSULIN REGULAR HUMAN 100 UNIT/ML SC SCH ×4 (08:26→21:23)
[2017-10-10] MEDS: ENOXAPARIN 40 MG/0.4 ML SYR SC SCH (08:27)
--- NOTE | 2017-10-10 14:35 | HOSPPROG ---
Hospitalist Progress Note Assessment/Plan: 56 yo M p/w acute on chronic encephalopathy in setting of hypoglycemia. He has encephalopathy for unclear reasons. He has had an extensive w/u for this (see below). He has an appointment with Neuro Psych at the end of this month. Since arrival to the hospital he is no longer having hypoglycemic events. His cognition is back to baseline. He is felt to not be able to take care of himself at home and therefore is requiring a SNF. Approval for this is pending. Today is my first encounter w the patient, chart reviewed. # Encephalopathy. Acute on chronic - cont to monitor, currently no agitation - per home economist, patient unsafe at home, and likely needs long-term care or 24/ care at home - there had been a suspicion of dementia developing over past 1-2 years, and hospitalization may have exacerbated w/ anoxic injury - B12 and Folate are OK -concern he is not decisional/ he isn't clear on how to check glucoses, doesn't know signs or symptoms of hypoglycemia. He wants to be home with his cat. -will ask ethics to get involved to help verify his decisional capacity # Hypoglycemia. Acute, likely 2/2 unintentional overtreatment w/ home insulin - normalized -mainly hyperglycemic # DM1. Cont lantus, DC NPH as this may increase risk of hypoglycemia, place on ISS to gauge needs - A1C is 7.4 - Increase Lantus slowly -glucoses have been labile -on ADA diet # HTN. -meds for treatment were stopped on previous admission here to the hospital -bp is 121/84 # Hypothyroidism -Levothyroxine 88mcg. -repeat TSH in 6 weeks Diet. ADA PPx. Mod risk, lovenox 40 #. Plan: Ethics to see Subjective: Amandeep has no complaints/ wants to see his cat. Objective: Vital Signs Temp Pulse Resp BP Pulse Ox 36.4 C 74 15 121/81 H 97 10/10/17 07:45 10/10/17 07:45 10/10/17 07:45 10/10/17 07:45 10/10/17 07:45 Laboratory Results 10/05/17 20:53 10/09/17 10/10/17 10/11/17 05:59 05:59 05:59 Intake Total 1275 2300 Balance 1275 2300 - Physical Exam Constitutional: no apparent distress, appears nourished, not in pain Eyes: PERRL Ears, Nose, Mouth, Throat: hearing normal Cardiovascular: regular rate and rhythym Respiratory: no respiratory distress Gastrointestinal: normoactive bowel sounds Skin: warm Musculoskeletal: full muscle strength Psychiatric: interacting appropriately, poor insight, poor judgement, poor memory ICD10 Worksheet Patient Problems: Problems Problem Status Onset Cognitive dysfunction Acute Insulin reaction Acute Acidosis Acute Hyperglycemia Acute Hyperkalemia Acute Unresponsive Acute
[2017-10-10] MEDS: INSULIN GLARGINE 100 UNITS/ML SYRINGE SC SCH ×2 (17:38→21:25)
--- NOTE | 2017-10-10 17:42 | ASMTCMCOM ---
CM Note CM Note Notes: Hospitalist assessed patient for decisional ability and said she felt patient was not decisional. Hospitalist placed order for Ethics consult. Hospitalist also wondering if [facility] may be an option for LTC in memory unit. Will plan to talk with Robin at [facility] in the morning. Case management will follow. Date Signed: 10/10/2017 05:41 PM Electronically Signed By:ANGIE Quintana
[2017-10-11] MEDS: LEVOTHYROXINE 88 MCG TAB PO SCH (05:40)
[2017-10-11] MEDS: INSULIN REGULAR HUMAN 100 UNIT/ML SC SCH ×5 (08:53→20:42)
[2017-10-11] MEDS: PANTOPRAZOLE SODIUM 40 MG TAB PO SCH (08:53)
[2017-10-11] MEDS: ENOXAPARIN 40 MG/0.4 ML SYR SC SCH (08:53)
--- NOTE | 2017-10-11 11:19 | HOSPPROG ---
Hospitalist Progress Note Assessment/Plan: 56 yo M p/w acute on chronic encephalopathy in setting of hypoglycemia. He has encephalopathy for unclear reasons. He has had an extensive w/u for this (see below). He has an appointment with Neuro Psych at the end of this month. Since arrival to the hospital he is no longer having hypoglycemic events. His cognition is back to baseline. He is felt to not be able to take care of himself at home and therefore is requiring a SNF. Approval for this is pending. # Encephalopathy. Acute on chronic - cont to monitor, currently no agitation - per funeral home assistant, patient unsafe at home, and likely needs long-term care or 24/7 care at home - there had been a suspicion of dementia developing over past 1-2 years, and hospitalization may have exacerbated w/ anoxic injury - B12 and Folate are OK # Hypoglycemia. Acute, likely 2/2 unintentional overtreatment w/ home insulin - normalized - mainly hyperglycemic # DM1. Cont lantus, DC NPH as this may increase risk of hypoglycemia, place on ISS to gauge needs - A1C is 7.4 - Increase Lantus slowly -glucoses have been labile -on ADA diet # HTN. -meds for treatment were stopped on previous admission here to the hospital -bp is 128/86 # Hypothyroidism -Levothyroxine 88mcg. -repeat TSH in 6 weeks Diet. ADA PPx. Mod risk, lovenox 40 #. Plan: Reviewed his care with Ethics team leader surgery, Courtney. She agrees he is not decisional. Subjective: Amandeep has no complaints. Wants to go home badly to be with his cat. Objective: Vital Signs Temp Pulse Resp BP Pulse Ox 36.8 C 75 16 128/86 H 98 10/11/17 07:20 10/11/17 07:20 10/11/17 07:20 10/11/17 07:20 10/11/17 07:20 Laboratory Results 10/05/17 20:53 10/10/17 10/11/17 10/12/17 05:59 05:59 05:59 Intake Total 2300 937 Balance 2300 937 - Physical Exam Constitutional: no apparent distress, appears nourished, not in pain Eyes: PERRL Ears, Nose, Mouth, Throat: hearing normal Cardiovascular: regular rate and rhythym Respiratory: no respiratory distress Skin: warm Musculoskeletal: full muscle strength Psychiatric: interacting appropriately, poor insight (when talking w Amandeep, he changes the subject to avoid answering the questions, didn't know his ), poor judgement, poor memory ICD10 Worksheet Patient Problems: Problems Problem Status Onset Cognitive dysfunction Acute Insulin reaction Acute Acidosis Acute Hyperglycemia Acute Hyperkalemia Acute Unresponsive Acute
[2017-10-11 12:03] LABS: GLUCOSE 397 mg/dL (70-100)
--- NOTE | 2017-10-11 16:57 | ASMTCMCOM ---
CM Note CM Note Notes: Ethics consult done today by Courtney. Please see ethics notes. It was determined that patient is not decisional . Spoke with patients brother Vinnie, to notify him about the outcome of the Ethics consult. He says it is no surprise to him and now he knows he needs to move forward . Spoke with Robin at [facility] who said that if brother has both MDPOA and financial POA. We checked and now know that Vinnie only has MDPOA and does not have financial POA. Maude from [facility], [phone], was also here and who said if he did not have financial POA he would need to get guaardianship for his brother as well as conservatorship. I advised patient to talk with Maude to clarify the legal requirements for guardeanship. Vinnie said he will make that call. Emerson at / had said that if brother has authority to pay bills for patient they would be willing to consider this patient in their locked unit. Case management will continue to follow. Date Signed: 10/11/2017 04:57 PM Electronically Signed By:ANGIE Quintana
[2017-10-11] MEDS: INSULIN GLARGINE 100 UNITS/ML SYRINGE SC SCH (20:43)
[2017-10-12] MEDS: LEVOTHYROXINE 88 MCG TAB PO SCH (04:57)
[2017-10-12] MEDS: INSULIN REGULAR HUMAN 100 UNIT/ML SC SCH ×7 (07:50→21:03)
[2017-10-12] MEDS: ENOXAPARIN 40 MG/0.4 ML SYR SC SCH (08:19)
[2017-10-12] MEDS: PANTOPRAZOLE SODIUM 40 MG TAB PO SCH (08:20)
--- NOTE | 2017-10-12 12:14 | HOSPPROG ---
Hospitalist Progress Note Assessment/Plan: 56 yo M p/w acute on chronic encephalopathy in setting of hypoglycemia. He has encephalopathy for unclear reasons. He has had an extensive w/u for this. He has an appointment with Neuro Psych at the end of this month. Since arrival to the hospital he is no longer having hypoglycemic events. His cognition is back to baseline. He is felt to not be able to take care of himself at home and therefore is requiring a SNF. Approval for this is pending. # Encephalopathy. Acute on chronic - cont to monitor, currently no agitation - per group home supervisor, patient unsafe at home, and likely needs long-term care or 24/7 care at home - there had been a suspicion of dementia developing over past 1-2 years, and hospitalization may have exacerbated w/ anoxic injury - B12 and Folate are OK -reviewed ST notes/ he has trouble w interpreting a basic calendar, he has moderate to severe difficulty w judgement -will ask neurology to see to get a clear diagnosis/suspect he has dementia # Hypoglycemia. Acute, likely 2/2 unintentional overtreatment w/ home insulin - normalized - mainly hyperglycemic # DM1. Cont lantus, DC NPH as this may increase risk of hypoglycemia, place on ISS to gauge needs - A1C is 7.4 - Increase Lantus slowly -glucoses have been improved with adding 3 units of insulin along w sliding scale -on ADA diet # HTN. -meds for treatment were stopped on previous admission here to the hospital -bp is 128/83 # Hypothyroidism -Levothyroxine 88mcg. -repeat TSH in 6 weeks Diet. ADA PPx. Mod risk, lovenox 40 #. Plan: I reviewed his care with Ethics steam oven operator, Courtney. She agrees he is not decisional. In addition, neurology to see him tomorrow to get clarity of his diagnosis in regards to dementia. His brother is his MPOA, but will need to be proxy to manage patient's bills, etc. Subjective: Amandeep is very grateful he is in the hospital/ has no complaints. Objective: Vital Signs Temp Pulse Resp BP Pulse Ox 36.5 C 92 16 128/83 H 96 10/12/17 07:46 10/12/17 07:46 10/12/17 07:46 10/12/17 07:46 10/12/17 07:46 Laboratory Results 10/11/17 11:45 10/11/17 10/12/17 10/13/17 05:59 05:59 05:59 Intake Total 937 1800 Balance 937 1800 - Physical Exam Constitutional: no apparent distress, appears nourished, not in pain Eyes: PERRL Ears, Nose, Mouth, Throat: hearing normal Respiratory: no respiratory distress Gastrointestinal: normoactive bowel sounds Skin: warm Musculoskeletal: full muscle strength Neurologic: AAOx3 Psychiatric: poor insight, poor judgement ICD10 Worksheet Patient Problems: Problems Problem Status Onset Cognitive dysfunction Acute Insulin reaction Acute Acidosis Acute Hyperglycemia Acute Hyperkalemia Acute Unresponsive Acute
--- NOTE | 2017-10-12 16:56 | ASMTCMCOM ---
CM Note CM Note Notes: Spoke w/Robin at [facility]. He said probably best to wait to send over referral since they need to have financial POA in place as well as MDPOA which is in place (brother danyelle). Please see CM note from 10/11. LVM for Maude w/[facility] today to see if she had been in touch w/pt's brother. Spoke w/OT today who asked about possibility of nursing home for pt... Discussed w/Barbara, Hospitalist who said will have neuro consult to have more definitive diagnosis which should be helpful for brother as he tries to pursue financial POA and guardianship. CHRISTIE w/f. Date Signed: 10/12/2017 04:56 PM Electronically Signed By:Lashonda Ramírez RN
[2017-10-12] MEDS: INSULIN GLARGINE 100 UNITS/ML SYRINGE SC SCH (20:12)
[2017-10-13] MEDS: LEVOTHYROXINE 88 MCG TAB PO SCH (05:08)
[2017-10-13] MEDS: ENOXAPARIN 40 MG/0.4 ML SYR SC SCH (08:05)
[2017-10-13] MEDS: INSULIN REGULAR HUMAN 100 UNIT/ML SC SCH ×7 (08:06→22:11)
[2017-10-13] MEDS: PANTOPRAZOLE SODIUM 40 MG TAB PO SCH (08:07)
--- NOTE | 2017-10-13 09:53 | NEUROPROG ---
Assessment: HOSPITAL NEUROLOGY CONSULT REQUESTING: Barbara Westbrook NP REASON: dementia HPI: 56 year old right-handed man with a history of DM who was admitted to our facility on 10/04 at the behest of his home health nurse. Patient has a background of cognitive decline, requiring HHC. His nurse had noted recently his needs are beyond what can be provided by HHC services. There was also concern over hypoglycemic episodes at home. He has a history of admission for DKA in May,, and also concern for anoxic brain injury, but no details of this event are available. The main concern is his cognitive decline and ability to care for himself. Ethics was consulted and determined he does not have decision making capacity to make his own safe decision. OT has evaluated him and determined his cognition is impaired to where he cannot perform day-to- day tasks safely. On interview, he is quite pleasant. He states he lives in a single family home of two stories. He is not sure of his medical history, but states he takes medications only when he feels he needs them. He does not endorse a history of diabetes. He states he gets help in his home from his brother and a nurse, mainly in food preparation. He denies any cognitive problems. ROS: As per the HPI, otherwise a complete 12 point ROS was performed and is negative ALLERGIES AND MEDS: As recorded in the EMR - reviewed and reconciled PFSH: As per the intake H&P by Dr. Quiroga from 10/04 EXAM: VS reviewed in EMR GEN: WDWN laying in NAD HEENT: NCAT, sclera anicteric, conjunctiva not injected, MMM, oropharynx clear, no scalp tenderness NECK: supple, nontender, no meningismus CV: RRR s1 s2 wo m/r/c/g. Carotid pulses 2+ wo bruit NEURO: MS: awake, alert, oriented to self, not date/time, situation. He knows he is in a hospital, but not which one. He is unsure of his own birthdate. Speech nondysarthric. Expressive language disturbance manifest as anomia is present. He can read, write, repeat. He appears to comprehend well. Has difficulty following commands, but significant ideamotor, conceptual, constructional and limb-kinetic apraxia. Finger agnosia present. Attends to both sides. Clear episodic/recent/remote memory impairment on casual conversation. Mood euthymic. Adequate fund of knowledge. CN: pupils 4mm round and reactive. Fundi with sharp discs. VFF. Primary gaze centered. Full ocular motility. Facial sensation preserved. Face symmetric. Hearing grossly intact to finger rub. Palatoglossal movements intact. Shoulder shrug and head turn strong. MOTOR: normal bulk/tone. No adventitial movements. Full power throughout. SENSORY: intact to all modalities throughout. Agraphesthesia present. No extinction. COORD: no ataxia FN/HS. Eyal preserved. Romberg neg. REFLEX: plantars down. No clonus. DTRS 2/4. GAIT: rises unassisted. Narrow base. Intact stride length/heel strike/toe lift /arm swing. Turns with 2 steps. Able to tandem without difficulty. DATA REVIEW: Labs reviewed in EMR PERSONALLY INTERPRETED RESULTS AND DATA: CT head wo from May 2017 shows profound global volume loss, very advanced for his age IMPRESSION AND RECOMMENDATIONS: // DEMENTIA Patient has clear cognitive difficulty which interferes with his ability to safely care for himself or perform day-to-day activities. His exam shows rather profound cortical dysfunction involving the frontal, temporal and parietal structures, as well as mesial temporal structures. Anoxia can cause profound cortical and mesial temporal dysfunction, but I'm not clear on the specific event that may have resulted in anoxic brain injury. An early onset neurodegenerative process cannot be ruled out. Regardless, it is evident he needs to be in a supervised environment for his own safety and well being. I discussed this with Dr. Feldman. Will sign off. Please recall PRN. Objective: Vital Signs Temp Pulse Resp BP Pulse Ox 36.7 C 95 20 131/81 H 96 10/13/17 08:00 10/13/17 08:00 10/13/17 08:00 10/13/17 08:00 10/13/17 08:00 Laboratory Results 10/11/17 11:45 10/12/17 10/13/17 10/14/17 05:59 05:59 05:59 Intake Total 1800 150 Balance 1800 150 Allergies/Adverse Reactions: No Known Allergies Allergy (Unverified 05/28/17 22:35)
--- NOTE | 2017-10-13 15:11 | HOSPPROG ---
Hospitalist Progress Note Assessment/Plan: 56 yo M p/w acute on chronic encephalopathy in setting of hypoglycemia. He has encephalopathy for unclear reasons. He has had an extensive w/u for this. He has an appointment with Neuro Psych at the end of this month. Since arrival to the hospital he is no longer having hypoglycemic events. His cognition is back to baseline. He is felt to not be able to take care of himself at home and therefore is requiring a SNF. Approval for this is pending. # Encephalopathy. Acute on chronic- suspected dementia baseline with concern for possible anoxic injury MRI brain (personally reviewed and interpreted) nonspecific periventricular white matter disease- B12 and Folate are OK oxygen saturations 95% on RA -neuro eval today confirms severe cortical dysfunction- etiology unclear -continue work on memory care placement # Hypoglycemia. Acute, likely 2/2 unintentional overtreatment w/ home insulin- normalized # DM1. -- A1C is 7.4--glucoses have been improved with adding 3 units of insulin along w sliding scale- NPH dc'd on admit - Cont lantus- slow uptitration - cont SSI - cont ADA diet # HTN. -meds for treatment were stopped on previous admission here to the hospital SBP 110-130 overnight - no meds indicated # Hypothyroidism -Levothyroxine 88mcg. -repeat TSH in 6 weeks Diet. ADA PPx. 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 She agrees he is not decisional. His brother is his MPOA, but will need to be proxy to manage patient's bills, etc. I have discussed the case with Neuro- patient definitely needs placement for safety - severe cortical dysfunction Subjective: denies pain Objective: Vital Signs Temp Pulse Resp BP Pulse Ox 36.7 C 75 20 121/74 H 95 10/13/17 12:17 10/13/17 12:17 10/13/17 12:17 10/13/17 12:17 10/13/17 12:17 Laboratory Results 10/11/17 11:45 10/12/17 10/13/17 10/14/17 05:59 05:59 05:59 Intake Total 1800 150 Balance 1800 150 - Physical Exam Constitutional: no apparent distress Eyes: anicteric sclera Ears, Nose, Mouth, Throat: moist mucous membranes Cardiovascular: regular rate and rhythym Respiratory: no respiratory distress, no rales or rhonchi Gastrointestinal: normoactive bowel sounds Genitourinary: no bladder fullness Skin: warm, normal color Musculoskeletal: No asymmetric calves Neurologic: AAOx3 Psychiatric: interacting appropriately, not anxious Lymph, Heme, Immunologic: no cervical LAD ICD10 Worksheet Patient Problems: Problems Problem Status Onset Cognitive dysfunction Acute Insulin reaction Acute Acidosis Acute Hyperglycemia Acute Hyperkalemia Acute Unresponsive Acute
--- NOTE | 2017-10-13 15:33 | ASMTCMCOM ---
CM Note CM Note Notes: Pt's brother Vinnie faxed over financial POA today. Left messages for Robin at [facility] to discuss POA and also find out if they will allow pt's cat as well. Brother has been in touch with [facility] and they shae come evaluate pt at 10 tomorrow. Provided Vinnie with information on [facility] for people with cognitive disabilities. They may be able to get him into a correction. This would be a long process though and brother is aware of that. Date Signed: 10/13/2017 03:32 PM Electronically Signed By:Dasia Guzman LCSW
[2017-10-13] MEDS: INSULIN GLARGINE 100 UNITS/ML SYRINGE SC SCH (22:10)
[2017-10-14] MEDS: LEVOTHYROXINE 88 MCG TAB PO SCH (05:39)
[2017-10-14] MEDS: PANTOPRAZOLE SODIUM 40 MG TAB PO SCH (08:08)
[2017-10-14] MEDS: ENOXAPARIN 40 MG/0.4 ML SYR SC SCH (08:09)
[2017-10-14] MEDS: INSULIN REGULAR HUMAN 100 UNIT/ML SC SCH ×4 (08:09→16:04)
--- NOTE | 2017-10-14 09:52 | HOSPPROG ---
Hospitalist Progress Note Assessment/Plan: DIAGNOSES: -acute encephalopathy likely caused by hypoglycemia which he had as he entered the hospital -labile blood sugars including some significant low sugars here -diabetes since age 20 on insulin since then -dementia -hypothyroidism started at this time on replacement hormone Looking at his sugars here each day he has a low sugar and each of his low sugars is preceded by a significant high sugar. He has ordered short- acting insulin both standing 3 unit dose before meals as well as sliding scale. The therefore his low sugars do appear to be induced by probably excessive insulin doses, although 1 could also question whether given his duration of diabetes gastroparesis could be playing somewhat overall. At home his nurse moved his insulin shots around appropriately so it is not a matter of putting shots in the same place each time. Reviewing his chart I see that we did not reconcile his long-acting insulin dose immediately at the time of his presentation, but only after he had been here. As well there is no short- acting insulin noted on his home medicine list. I wonder if we may have missed short-acting insulin in doing his home medicine reconciliation. I have spoken with our pharmacist to look and see if we can find any information about whether he has prescriptions for short-acting insulin. PLANS: -will stop the sliding scale of short-acting insulin right now and will continue the pre meal scheduled 3 units as long as sugars remain in good shape. -it appears he needs a higher dose of Lantus insulin as his morning sugars are high, but my 1st priority will be to get rid of the low sugars and that change of Lantus can occur later. -given his history of dementia, I expect that his life expectancy is fairly limited, and so his goals for sugar control should also be limited especially to have a primary goal of avoiding hypoglycemic episodes which could be very damaging to him. He probably does not have enough years left for moderately high sugars to cause him any renal damage. -will review this with Dr. Helms his machine adjuster helper at the time of discharge and make sure he has follow-up SUBJECTIVE: Feels well No nausea Eating well No pain or discomfort Memory really impairs the ability to find out what happened from him over the last day, but the nurses note no problems other than sugar issues as described above OBJECTIVE Vitals reviewed: Stable without fever Exam: alert oriented skin warm dry color ok resps not labored lungs clear BSs heart regular abd soft nondistended nontender, bowel sounds present limbs warm, no edema iv site ok Objective: Vital Signs Temp Pulse Resp BP Pulse Ox 36.3 C 73 12 134/89 H 99 10/14/17 07:00 10/14/17 07:00 10/14/17 07:00 10/14/17 07:00 10/14/17 07:00 Laboratory Results 10/11/17 11:45 10/13/17 10/14/17 10/15/17 06:59 06:59 06:59 Intake Total 150 350 Balance 150 350 - Time Spent With Patient Time Spent with Patient: greater than 35 minutes Time Spent with Patient: Greater than 35 minutes spent on this patients care, greater than 50% of time spent counseling, educating, and coordinating care regarding the above mentioned plan. ICD10 Worksheet Patient Problems: Problems Problem Status Onset Hyperglycemia Acute Unresponsive Acute Hyperkalemia Acute Acidosis Acute Insulin reaction Acute Cognitive dysfunction Acute
[2017-10-14] MEDS: INSULIN GLARGINE 100 UNITS/ML SYRINGE SC SCH (20:45)
[2017-10-15] MEDS: LEVOTHYROXINE 88 MCG TAB PO SCH (05:31)
[2017-10-15] MEDS: INSULIN REGULAR HUMAN 100 UNIT/ML SC SCH ×3 (08:25→16:24)
[2017-10-15] MEDS: ENOXAPARIN 40 MG/0.4 ML SYR SC SCH (08:25)
[2017-10-15] MEDS: PANTOPRAZOLE SODIUM 40 MG TAB PO SCH (08:25)
--- NOTE | 2017-10-15 10:09 | ASMTCMCOM ---
CM Note CM Note Notes: Spoke with Robin at [facility] yesterday. They can tentatively accept pt and can possibly accept his cat too. Pt's brother Vinnie is in town and plans to visit [facility], [place] and [facility] today. He will keep CM informed about decision. Someone from [facility] visited pt yesterday and determined that they do not have the staff to manage pt's diabetes needs. Date Signed: 10/15/2017 10:08 AM Electronically Signed By:Dasia Guzman LCSW
--- NOTE | 2017-10-15 13:16 | HOSPPROG ---
Hospitalist Progress Note Assessment/Plan: DIAGNOSES: -acute encephalopathy likely caused by hypoglycemia which he had as he entered the hospital -labile blood sugars including some significant low sugars here -diabetes since age 20 on insulin since then -dementia -hypothyroidism started at this time on replacement hormone After stopping the sliding scale short-acting insulin, we so far. I have eliminated the low sugars. Postprandial Sugars are running just over 200 and I think at this point if we slightly increased his short-acting pre meal insulin standing dose will bring him into good range. Morning sugars range from 100- 200 here so far on the current dose of Lantus 29 units. Ideally I would like to let that be more like 150-200 at this time and may need to back off on his Lantus dose slightly. His brother and a part-time nutritional chemist are both here visiting the patient this weekend in order to help with discharge planning and ongoing care management arrangements. I reviewed with them the patient's blood sugar adventures and the various changes in insulin both at home before he came here and so far here in the hospital. They are very well aware of what was happening at home and usually keeps pretty close track of his sugars at home even though they are not with him. They have had concerns over what's been happening. They are looking for ways to try to get better supervision which will be helpful for managing his sugars. I did review with them the issues around the multiple changes in insulin dosing at home recently and the impact that can have on risk of low blood sugars. We also talked a lot about the fact that probably diet has a lot to do with his labile sugars at home and they have struggled with ways to manage diet at home. They do know that starches 10 to make his sugars run very high. So far however he is completely unable to keep track of what he is supposed to and what he has eaten due to his cognitive issues. They have spoken with and looked at the possibility of a modern electronic monitoring device for sugars but these are not within his reach because of resource issues. PLANS: -will keep off of sliding scale insulin and I think that this will be a very important part of avoiding low sugars at home after he leaves the hospital -I did discuss a number of possible options with the brother and nutritional chemist regarding how to manage the patient's diet better to help avoid the high sugars at home; there are number of logistic her dolls to overcome but at least there is some options they can look forward to trying. They will be trying to set up some different in-home help among other things. -will decrease his Lantus dose slightly to try and bring the low end of his fasting sugars closer to 150 but will need to watch that the high end of his range does not go up significantly -given his cognitive issues, I expect that his life expectancy is fairly limited , and so his goals for sugar control should be modest says to hypoglycemic episodes which could be very damaging to him. Family tells me Dr. Helms's goal has been 150-180 but I believe 160-200 may even be a better idea -will review this with Dr. Helms his farm equipment assembler at the time of discharge and make sure he has follow-up SUBJECTIVE: Feels well No nausea Eating well No pain or discomfort OBJECTIVE Vitals reviewed: Stable without fever Exam: alert oriented skin warm dry color ok resps not labored lungs clear BSs heart regular abd soft nondistended nontender, bowel sounds present limbs warm, no edema iv site ok Objective: Vital Signs Temp Pulse Resp BP Pulse Ox 36.6 C 90 16 115/80 93 10/15/17 08:00 10/15/17 08:00 10/15/17 08:00 10/15/17 08:00 10/15/17 08:00 Laboratory Results 10/11/17 11:45 10/14/17 10/15/17 10/16/17 06:59 06:59 06:59 Intake Total 350 1450 Output Total 2 Balance 350 1448 - Time Spent With Patient Time Spent with Patient: greater than 35 minutes Time Spent with Patient: Greater than 35 minutes spent on this patients care, greater than 50% of time spent counseling, educating, and coordinating care regarding the above mentioned plan. ICD10 Worksheet Patient Problems: Problems Problem Status Onset Cognitive dysfunction Acute Insulin reaction Acute Acidosis Acute Hyperglycemia Acute Hyperkalemia Acute Unresponsive Acute
--- NOTE | 2017-10-15 15:47 | ASMTCMCOM ---
CM Note CM Note Notes: Pt's brother Vinnie returned from touring facilities and asked that a referral be faxed to [facility]. C/M to follow. Date Signed: 10/15/2017 03:47 PM Electronically Signed By:Dasia Guzman LCSW
[2017-10-15] MEDS: INSULIN GLARGINE 100 UNITS/ML SYRINGE SC SCH (21:03)
[2017-10-16] MEDS: LEVOTHYROXINE 88 MCG TAB PO SCH (05:06)
[2017-10-16] MEDS: INSULIN REGULAR HUMAN 100 UNIT/ML SC SCH ×3 (08:36→17:55)
[2017-10-16] MEDS: PANTOPRAZOLE SODIUM 40 MG TAB PO SCH (08:37)
[2017-10-16] MEDS: ENOXAPARIN 40 MG/0.4 ML SYR SC SCH (08:37)
--- NOTE | 2017-10-16 16:15 | HOSPPROG ---
Hospitalist Progress Note Assessment/Plan: DIAGNOSES: -acute encephalopathy likely caused by hypoglycemia which he had as he entered the hospital -labile blood sugars including some significant low sugars here -diabetes since age 20 on insulin since then -dementia -hypothyroidism started at this time on replacement hormone PLANS: -will keep off of sliding scale insulin and I think that this will be a very important part of avoiding low sugars at home after he leaves the hospital -increase standing order premeal humalog today -may need to decrease his Lantus dose slightly to try and bring the low end of his fasting sugars closer to 150 -I did discuss a number of possible options with the brother and thread inspector regarding how to manage the patient's diet better to help avoid the high sugars at home; there are number of logistic her dolls to overcome but at least there is some options they can look forward to trying. They will be trying to set up some different in-home help among other things. -given his cognitive issues, I expect that his life expectancy is fairly limited , and so his goals for sugar control should be modest says to hypoglycemic episodes which could be very damaging to him. Family tells me Dr. Helms's goal has been 150-180 but I believe 160-200 may even be a better idea -will review this with Dr. Helms his produce shipper at the time of discharge and make sure he has follow-up His brother is visiting several residential facilities today SUBJECTIVE: no symptoms at all other than poor memory OBJECTIVE Vitals reviewed: Stable without fever Exam: alert oriented skin warm dry color ok resps not labored lungs clear BSs heart regular abd soft nondistended nontender, bowel sounds present limbs warm, no edema Objective: Vital Signs Temp Pulse Resp BP Pulse Ox 36.6 C 67 16 134/88 H 96 10/16/17 15:58 10/16/17 15:58 10/16/17 15:58 10/16/17 15:58 10/16/17 15:58 Laboratory Results 10/11/17 11:45 10/15/17 10/16/17 10/17/17 06:59 06:59 06:59 Intake Total 1450 1150 Output Total 2 Balance 1448 1150 ICD10 Worksheet Patient Problems: Problems Problem Status Onset Cognitive dysfunction Acute Insulin reaction Acute Acidosis Acute Hyperglycemia Acute Hyperkalemia Acute Unresponsive Acute
[2017-10-16] MEDS: INSULIN GLARGINE 100 UNITS/ML SYRINGE SC SCH (21:53)
[2017-10-17] MEDS: LEVOTHYROXINE 88 MCG TAB PO SCH (05:35)
[2017-10-17] MEDS: INSULIN REGULAR HUMAN 100 UNIT/ML SC SCH ×3 (07:45→17:39)
[2017-10-17] MEDS: PANTOPRAZOLE SODIUM 40 MG TAB PO SCH (09:33)
[2017-10-17] MEDS: ENOXAPARIN 40 MG/0.4 ML SYR SC SCH (10:39)
--- NOTE | 2017-10-17 11:40 | HOSPPROG ---
Hospitalist Progress Note Assessment/Plan: DIAGNOSES: -acute encephalopathy likely caused by hypoglycemia which he had as he entered the hospital -labile blood sugars including some significant low sugars here -diabetes since age 20 on insulin since then -dementia -hypothyroidism started at this time on replacement hormone Low blood sugars which occurred at home and in the early part of this hospitalization have been eliminated by adjustments to his short-acting insulin , primarily the removal of the sliding scale insulin. He does continue to have some higher sugars in postprandial settings on some days, and this is consistently associated with him getting smoothies or other carbohydrate or start rich foods. As he is incapable of making adjustments to insulin based on dietary intake due to his cognitive disabilities, I still think the better approach is going to be to find ways to control his food intake. On working with the nurses on that here and his family is looking for a setting where he can live where he can get assistance with that. PLANS: -will keep off of sliding scale insulin and I think that this will be a very important part of avoiding low sugars at home after he leaves the hospital -increase standing order premeal humalog today -continue current Lantus dose with goal of morning sugars 160-200; some a.m. sugars have been just over 100 and it is possible that a slightly lower dose of Lantus would be better -I did discuss a number of possible options with the brother and freelance recruiter regarding how to manage the patient's diet better to help avoid the high sugars at home; there are number of logistic her dolls to overcome but at least there is some options they can look forward to trying. They will be trying to set up some different in-home help among other things. -given his cognitive issues, I expect that his life expectancy is fairly limited , and so his goals for sugar control should be modest says to hypoglycemic episodes which could be very damaging to him. Family tells me Dr. Helms's goal has been 150-180 but I believe 160-200 may even be a better idea -will review this with Dr. Helms his combine operator at the time of discharge and make sure he has follow-up His brother is visiting several residential facilities today SUBJECTIVE: no symptoms at all other than poor memory OBJECTIVE Vitals reviewed: Stable without fever Exam: alert oriented skin warm dry color ok resps not labored lungs clear BSs heart regular abd soft nondistended nontender, bowel sounds present limbs warm, no edema Review of fingerstick sugars: Yesterday his postprandial sugars were notably higher than the last few days. It appears this is probably due to him taking in some smoothies and other starting carbohydrate rich foods. This is been a consistent issue for him where he takes an foods that will post sugars up. The sugars so far are low better today. I did increase his short-acting pre meal insulin a bit yesterday. I am working with the nursing staff to try and help him make food choices that would be less likely the post sugars up. There have been no lows for the last few days so at least we are now avoiding low sugars. Objective: Vital Signs Temp Pulse Resp BP Pulse Ox 36.3 C 75 16 121/79 H 95 10/17/17 07:25 10/17/17 07:25 10/17/17 07:25 10/17/17 07:25 10/17/17 07:25 Laboratory Results 10/11/17 11:45 10/16/17 10/17/17 10/18/17 06:59 06:59 06:59 Intake Total 1150 1550 Balance 1150 1550 ICD10 Worksheet Patient Problems: Problems Problem Status Onset Cognitive dysfunction Acute Insulin reaction Acute Acidosis Acute Hyperglycemia Acute Hyperkalemia Acute Unresponsive Acute
--- NOTE | 2017-10-17 15:24 | ASMTCMCOM ---
CM Note CM Note Notes: I spoke with patient's brother Vinnie Jacob ([phone]) who visited [place] over the weekend and hopes that patient can discharge there. According to Vinnie, someone from [place] was to call us for updates/information. He gave me the phone number of Dominga Beckham ([phone]) at [facility] - I called and left a message. I also called the main number and was transferred to someone named Arpita - I also left a message for her. Per Vinnie, patient needs help with his medications/glucometer. He is able to perform ADLs such as dress/bathing/etc. Therefore, he seems to qualify for Assisted Living (vs SNF). Case Management will continue to follow up with Kaitlin to hopefully arrange a discharge very soon. Date Signed: 10/17/2017 03:23 PM Electronically Signed By:Opal Holt RN
[2017-10-17] MEDS: INSULIN GLARGINE 100 UNITS/ML SYRINGE SC SCH (21:48)
[2017-10-18] MEDS: LEVOTHYROXINE 88 MCG TAB PO SCH (06:36)
[2017-10-18 08:12] VITALS: RESP 16
[2017-10-18] MEDS: INSULIN REGULAR HUMAN 100 UNIT/ML SC SCH ×3 (08:35→18:44)
[2017-10-18] MEDS: PANTOPRAZOLE SODIUM 40 MG TAB PO SCH (08:35)
[2017-10-18] MEDS: ENOXAPARIN 40 MG/0.4 ML SYR SC SCH (08:37)
--- NOTE | 2017-10-18 10:35 | ASMTCMCOM ---
CM Note CM Note Notes: Harper, residential child care counselor, and an RN and CARDROOM HAND from [facility] here today to assess patient. They will send paperwork to patient's brother Vinnie today for admission tomorrow. According to Harper, they are going to accept him to Assisted Living (vs Memory Care). We will send them whatever paperwork/orders they need to faciliate the discharge tomorrow. The contact people at [facility] are Harper ([phone]), Arpita ([phone]), and Dominga ([phone]). Date Signed: 10/18/2017 10:34 AM Electronically Signed By:Opal Holt RN
[2017-10-18 12:11] LABS: GLUCOSE 368 mg/dL (70-100)
--- NOTE | 2017-10-18 16:55 | HOSPPROG ---
Hospitalist Progress Note Assessment/Plan: DIAGNOSES: -acute encephalopathy likely caused by hypoglycemia which he had as he entered the hospital -labile blood sugars including some significant low sugars here -diabetes since age 20 on insulin since then -dementia -hypothyroidism started at this time on replacement hormone yesterday the patient had eaten some smoothies during the day causing some postprandial hyperglycemia. Overall his postprandial sugars have been running greater than 200. My response to this had been to increase his pre meal Humalog from 5-7 units which I did yesterday. I also talked to the patient about avoiding smoothies and he did not have any more yesterday. All this led to blood sugars down around 70 last evening. Unfortunately this let the nurse to not giving him his Lantus last night. His sugars now have been running greater than 300 through the day today probably because of the lack of Lantus which is more than 50% of his insulin. As per my previous notes I do believe that the patient will continue to have hypoglycemic spells if we try to treat his postprandial hyperglycemia with increasing doses of short-acting insulin, as his diet will be quite variable and he does not have the cognitive skills to try and adjust insulin doses based on his meals. We have seen at both at home and here repeatedly hypoglycemia with any higher doses of insulin. I think this is dangerous for him and we should continue to allow his sugars to run more on the high side than with would for most people. His plate glass polisher Dr. Helms is out of town this week but I will try and talk to her partners and I will try to talk to her next week. PLANS: -continue without any sliding scale insulin due to frequent hypoglycemic spells -I have decreased his short-acting pre meal insulin back to 5 units -would not hold his Lantus at night and less he had extremely low sugars, and would prefer to treat those low sugars to get him back in the good range in give him the Lantus once we have a sugar back in range so that he does not run high through the day like today -would continue to try and regulate his diet to avoid both starches and concentrated switch including smoothies in significant amount of fruit, which routinely pushes sugars up into very high ranges -I will discuss with Dr. Helms when she returns next week if there might be any utility for treatments other than insulin that would not tend to give him some much hypoglycemia -it sounds that we are able to get him to the [facility] facility probably tomorrow ; I will try to contact staff there to talk them about recommendations for maintaining strict diet control to help with his sugar control as well as the risks of hypoglycemia for him SUBJECTIVE: no symptoms at all other than poor memory OBJECTIVE Vitals reviewed: Stable without fever Exam: alert oriented skin warm dry color ok resps not labored lungs clear BSs heart regular abd soft nondistended nontender, bowel sounds present limbs warm, no edema Review of fingerstick sugars: Yesterday his postprandial sugars were notably higher than the last few days. It appears this is probably due to him taking in some smoothies and other starting carbohydrate rich foods. This is been a consistent issue for him where he takes an foods that will post sugars up. The sugars so far are low better today. I did increase his short-acting pre meal insulin a bit yesterday. I am working with the nursing staff to try and help him make food choices that would be less likely the post sugars up. There have been no lows for the last few days so at least we are now avoiding low sugars. Objective: Vital Signs Temp Pulse Resp BP Pulse Ox 36.8 C 85 16 131/87 H 96 10/18/17 15:55 10/18/17 15:55 10/18/17 15:55 10/18/17 15:55 10/18/17 15:55 Laboratory Results 10/18/17 11:47 10/17/17 10/18/17 10/19/17 06:59 06:59 06:59 Intake Total 1550 1470 Balance 1550 1470 ICD10 Worksheet Patient Problems: Problems Problem Status Onset Cognitive dysfunction Acute Insulin reaction Acute Acidosis Acute Hyperglycemia Acute Hyperkalemia Acute Unresponsive Acute
[2017-10-18] MEDS: INSULIN GLARGINE 100 UNITS/ML SYRINGE SC SCH (21:00)
[2017-10-19] MEDS: LEVOTHYROXINE 88 MCG TAB PO SCH (05:38)
[2017-10-19 07:52] VITALS: BP 132/93; PULSE 82; TEMP 98.2; O2SAT 96
[2017-10-19] MEDS: PANTOPRAZOLE SODIUM 40 MG TAB PO SCH (08:16)
[2017-10-19] MEDS: INSULIN REGULAR HUMAN 100 UNIT/ML SC SCH ×2 (08:16→12:35)
[2017-10-19] MEDS: ENOXAPARIN 40 MG/0.4 ML SYR SC SCH (09:12)
--- NOTE | 2017-10-19 10:23 | PDDCSUM ---
Discharge Summary Discharge Summary: The pt is a 56 yo male with hx of DM-I who was admitted for acute on chronic encephalopathy likely due to hypoglycemia. During his course he had very labile blood sugars with occasional hypoglycemia and acute worsening of his cognition. Insulin has been adjusted and he has been taken off meal scheduled insulin and sliding scale. He was noted to have occasional hyperglycemia after these changes and Lantus was increased. His sugars have been somewhat elevated but no further acute encephalopathy. Would favor some hyperglycemia given the possibility of further hypoglycemic event with tighter regimen. Could also consider transition to BID Lantus. He will f/u with his Packaging Assembler. Would regulate diet and avoid starches and concentrated juices/smoothies and high doses of fructose. He was also seen by Neurology. He has chronic dementia and possible previous anoxic injury reported. He will f/u with Neuro Psych. He is been discharged to [facility]. He cannot take care of himself. No changes to his thyroid medication. Although would repeat TSH in 4 weeks. May need to increase his dosage at that time. It was not increased here due to unclear medication compliance prior to his hospitalization. Discharge Diagnosis: -Acute on chronic encephalopathy and dementia -DM I with labile sugars -Hypoglycemia -Hypothyroidism Exam: vss NAD ALERT, AWAKE RRR CTA B S/NT/ND NO EDEMA D/C MEDS: SEE MED REC. Lantus 29 units QHS f/u: per above total time spent on discharge and coordination of care is 40 minutes
--- NOTE | 2017-10-19 11:27 | PDIAF ---
- Diagnosis Diagnosis: encephalopathy. Requires SNF Code Status: Full Code - Medication Management Discharge Medications: Medications to Continue on Transfer Pantoprazole Sodium [Protonix 40mg (*)] 40 mg PO DAILY 05/28/17 [Last Taken 06/13] Levothyroxine [Synthroid 88 mcg (*)] 88 mcg PO DAILY06 10/04/17 [Last Taken 06/13] Insulin Glargine [Lantus 100 UNITS/ML (*)] 29 units SC HS 30 Days #30 ml [Last Taken Unknown] Discharge Medications: Refer to the Discharge Home Medication list for PRN reason. - Orders Diet Recommendation: ADA 1800 consistent carb, other (please no juice, smoothies , juice concentrate) Diet Texture: Regular Texture Diet - Follow Up Care Current Providers and Referrals: Patient,NotPresent [Unknown] - As per Instructions
--- NOTE | 2017-10-19 13:52 | ASMTCMCOM ---
CM Note CM Note Notes: Pt ready for DC to [facility] today. Spoke with pt's brother Vinnie, pt's kar PIERSON had not spoken with him about the plan yet. Pt is unable to have his cosmo with him initially because he will at SNF part but can have cat when he is ready for assisted living. NOAH Boothe and this C/M spoke with pt about DC. Pt stated that he did not want to DC anywhere unless he could have his cat with him. He stated he wanted to go home instead. Pt eventually agreed to go. Transport set for 2:45 through [facility]. [facility] called C/M later to stay they have made arrangements that pt's cat can visit pt but not stay. Date Signed: 10/19/2017 01:51 PM Electronically Signed By:Dasia Guzman LCSW
--- NOTE | 2017-10-19 14:50 | ASDISCHSUM ---
Discharge Information Plan Status:Has needs-TBD Medically Cleared to Leave: Discharge Date:10/19/2017 02:41 PM CM D/C Disposition: ADT D/C Disposition:Nursing Home Facility Projected Discharge Date:10/13/2017 11:00 AM Transportation at D/C: Discharge Delay Reason: Follow-Up Date:10/13/2017 11:00 AM Discharge Slot: Final Diagnosis: Placement Information Referral Type:*Detention/SNF Referral ID:[id number] Provider Name:[facility] Address 1:[address] Address 2: City:[place] Selection Factors: State:[place] Patient Contact Information Contact Name:JEMMA Relationship:Mother Address: Home Phone: City:[place] Alternate Phone: [facility] Code:[place] Email: Financial Information Financial Class:HMO and PPO Plans Primary Plan Desc:[employer] PPO HMO Primary Plan Number:[id number] Secondary Plan Desc: Secondary Plan Number: Assessment Information [facility] CM Progress Note CM Note CM Note Notes: Pt admitted w/acute confusion secondary to hypoglycemia . Per ED report, his HC RN, Kim reportedly does not feel he is safe to manage his diabetes in his home and requires more care than she and her agency can provide. Pt hospitalized in May of this year and DCd to [facility]. Spoke with pts brother, Vinnie, who is also his [facility] ([phone]). Vinnie is concerned that pt is not able to care for himself at home but also does not have the insight to understand this. Pt has cognitive problems in addition to his diabetes. Vinnie states the cause of pts cognitive problems is unclear. Vinnie feels that pt would leave any facility he was placed in against his will unless it was locked. He states that pt gets angry when Vinnie or friends try to discuss their concerns. Vinnie did make an appt for pt with a neuro psychologist sometime in next few weeks. Currently pt has a HC RN 2 X day, 5 X week but he needs daily care. Vinnie stated that pt has been trying to sell his home which could free up funds for a possible asst living facility if pt would agree. Otherwise, pt does not have funds to hire addl care at home. Met with pt after conversation with Vinnie to see if he had any insight into his admission. Pt did not appear to understand the gravity if his situation. Did discuss with pt the possibility of moving into asst living after selling his home. He appeared to agree but this CM not sure he really comprehended. Vinnie had stated it was hard to sell pts home while he lived there so also discussed with pt the possibility of his going to [facility] again while his home was prepared for sale. It might be best to have conversation with pt while brother present in person or by phone to further discuss DC plans. CM will continue to follow. Date Signed: 10/05/2017 05:27 PM Electronically Signed By:Dasia Guzman LCSW LACE LACE Length of stay for Answers: 1 day current admission Acuity / Level of Care Answers: Was the patient admitted to hospital via the emergency department? Yes: Comorbidities - select Answers: Diabetes without all that apply complications Emergency dept visits in Answers: 1 last 6 months Score: 6 Date Signed: 10/06/2017 09:59 AM Electronically Signed By:Khushbu Reyna RN [facility] Progress Note CM Note CM Note Notes: Met with patient, his brother Vinnie and Dr. Glaser. Discussed cognitive evaluation and concerns for patient safety and his need for better diabetes management. The patient expresses that he understands that he is being cared for. He asked for a list of places but he states he should "go look". I have made several referrals to facilities here in [place]. He has had a recent stay at [facility]. DC to SNF when medically cleared with plans to transition to assisted living situation. CM to follow. Date Signed: 10/06/2017 04:07 PM Electronically Signed By:Khushbu Reyna RN [facility] Progress Note CM Note CM Note Notes: Chart reviewed. Patient about ready fopr dc. Working with [facility] and authorization pending, Spoke with patients Brother Vinnie and had a long discussion regarding [place] cognitive decline and need for superintendent terminal solutions to his living situation, He is currently investigating facilities that [facility] provide assisted living, The resources are limited by both financial considertion and the house selling. CM to follow. Date Signed: 10/07/2017 02:10 PM Electronically Signed By:Khushbu Reyna RN [facility] Progress Note CM Note CM Note Notes: Hospitalist assessed patient for decisional ability and said she felt patient was not decisional. Hospitalist placed order for Ethics consult. Hospitalist also wondering if [facility] may be an option for LTC in memory unit. Will plan to talk with Robin at [facility] in the morning. Case management will follow. Date Signed: 10/10/2017 05:41 PM Electronically Signed By:Beatrizarline Delgadilol FernandofortinoMSW [facility] Progress Note CM Note CM Note Notes: Ethics consult done today by Courtney. Please see ethics notes. It was determined that patient is not decisional . Spoke with patients brother Vinnie, to notify him about the outcome of the Ethics consult. He says it is no surprise to him and now he knows he needs to move forward . Spoke with Robin at [facility] who said that if brother has both MDPOA and financial POA. We checked and now know that Vinnie only has MDPOA and does not have financial POA. Maude from [employer], [phone], was also here and who said if he did not have financial POA he would need to get guaardianship for his brother as well as conservatorship. I advised patient to talk with Maude to clarify the legal requirements for guardeanship. Vinnie said he will make that call. Emerson at / had said that if brother has authority to pay bills for patient they would be willing to consider this patient in their locked unit. Case management will continue to follow. Date Signed: 10/11/2017 04:57 PM Electronically Signed By:ANGIE Quintana [facility] Progress Note CM Note CM Note Notes: Spoke w/Robin at [facility]. He said probably best to wait to send over referral since they need to have financial POA in place as well as MDPOA which is in place (brother vinnie). Please see CM note from 10/11. LVM for Maude w/[facility] today to see if she had been in touch w/pt's brother. Spoke w/OT today who asked about possibility of [facility] for pt... Discussed w/Barbara, Hospitalist who said will have neuro consult to have more definitive diagnosis which should be helpful for brother as he tries to pursue financial POA and guardianship. CM w/f. Date Signed: 10/12/2017 04:56 PM Electronically Signed By:Lashonda Ramírez RN [facility] CM Progress Note CM Note CM Note Notes: Pt's brother Vinnie faxed over financial POA today. Left messages for Robin at [facility] to discuss POA and also find out if they will allow pt's cat as well. Brothm[facility] has been in touch with [place] [facility] and they shae come evaluate pt at 10 tomorrow. Provided Vinnie with information on [facility] for people with cognitive disabilities. They may be able to get him into a senior living. This would be a long process though and brothmj is aware of that. Date Signed: 10/13/2017 03:32 PM Electronically Signed By:Dasia Guzman LCSW [facility] CM Progress Note CM Note CM Note Notes: Spoke with Robin at [facility] yesterday. They can tentatively accept pt and can possibly accept his cat too. Pt's brother Vinnie is in town and plans to visit [facility], [facility] and [facility] today. He will keep CM informed about decision. Someone from [place] [facility] visited pt yesterday and determined that they do not have the staff to manage pt's diabetes needs. Date Signed: 10/15/2017 10:08 AM Electronically Signed By:Dasia Guzman LCSW [facility] CM Progress Note CM Note CM Note Notes: Pt's brother Vinnie returned from touring facilities and asked that a referral be faxed to [facility]. C/M to follow. Date Signed: 10/15/2017 03:47 PM Electronically Signed By:Dasia Guzman LCSW [facility] CM Progress Note CM Note CM Note Notes: I spoke with patient's brother Vinnie Jacob ([phone]) who visited [facility] over the weekend and hopes that patient can discharge there. According to Vinnie, someone from [facility] was to call us for updates/information. He gave me the phone number of Dominga Beckham ([phone]) at [facility] - I called and left a message. I also called the main number and was transferred to someone named Arpita - I also left a message for her. Per Vinnie, patient needs help with his medications/glucometer. He is able to perform ADLs such as dress/bathing/etc. Therefore, he seems to qualify for Assisted Living (vs SNF). Case Management will continue to follow up with [facility] to hopefully arrange a discharge very soon. Date Signed: 10/17/2017 03:23 PM Electronically Signed By:Opal Holt RN [facility] Progress Note CM Note CM Note Notes: Harper, president, and an RN and ATOMIC FUEL ASSEMBLER from [facility] here today to assess patient. They will send paperwork to patient's brother Vinnie today for admission tomorrow. According to Harper, they are going to accept him to Assisted Living (vs Memory Care). We will send them whatever paperwork/orders they need to faciliate the discharge tomorrow. The contact people at [facility] are Harper ([phone]), Arpita ([phone]), and Dominga ([phone]). Date Signed: 10/18/2017 10:34 AM Electronically Signed By:Opal Holt RN [facility] Progress Note CM Note CM Note Notes: Pt ready for DC to [facility] today. Spoke with pt's brother Vinnie, pt's kar PIERSON had not spoken with him about the plan yet. Pt is unable to have his cosmo with him initially because he will at SNF part but can have cat when he is ready for assisted living. NOAH Boothe and this C/M spoke with pt about DC. Pt stated that he did not want to DC anywhere unless he could have his cat with him. He stated he wanted to go home instead. Pt eventually agreed to go. Transport set for 2:45 through [facility]. [facility] called C/M later to stay they have made arrangements that pt's cat can visit pt but not stay. Date Signed: 10/19/2017 01:51 PM Electronically Signed By:Dasia Guzamn LCSW Case Management Discharge Plan Note Case Management Discharge Discharge Order Complete? Answers: Yes Patient to Obtain Answers: Other Notes: [facility] Transportation Arranged Answers: Other Notes: [facility] Faxed Final Orders Answers: Yes Agency/Facility Transfer Answers: Yes Report Printed & Faxed to Receiving Agency Family Notified Answers: Yes Date Signed: 10/19/2017 01:52 PM Electronically Signed By:Dasia Guzman LCSW Intervention Information Intervention Type:*Incorrect Registration Date of Service:10/05/2017 09:38 AM Patient Type:Inpatient Staff Member:NOAH Capone, Iram Hours: Discipline: Severity: Comment:
== END 2017-10-19 14:41 | DRG 637 ==
LOC: EDUNIT# → INTOOBSV 18:54 → F2W 19:41 → F1N 10-05 08:51 → OBSVTOIN 10-05 15:04
PROVIDERS: ADMIT Internal Medicine; ATTEND Family Medicine
DX: E10.649 Type 1 diabetes mellitus with hypoglycemia without coma (principal); G93.41 Metabolic encephalopathy; F03.90 Unspecified dementia, unspecified severity, without behavioral disturbance, psychotic disturbance, mood disturbance, and anxiety; E03.9 Hypothyroidism, unspecified; I10 Essential (primary) hypertension
CPT/HCPCS: 82607-90; 82947-QW; 92507-GN; 92523-GN; 97116-GP; 97161-GP; 97165-GO; 97530-GO; 97530-GP; 97532-GN; 97532-GO; 97535-GO; G0378; J1650; J1815

== ENCOUNTER → 2019-01-02 | Outpatient (CLI) | payer OTHER | LOC: CIMAGING 13:25 | PROVIDERS: ATTEND Internal Medicine | DX: H02.401 Unspecified ptosis of right eyelid (principal); I10 Essential (primary) hypertension; E10.9 Type 1 diabetes mellitus without complications | CPT/HCPCS: 70450-PO ==